=== PATIENT | male | born 1935 | race Caucasian/White ===

== ENCOUNTER 2017-09-11 09:21 | Observation (INO) | payer MEDICARE ==
[2017-09-11 09:48] LABS: Hematocrit 38 % (42-52); Hemoglobin 12.6 g/dl (14.0-18.0); Mean Corpuscular HGB Conc 33 g/dl (31-36); Mean Corpuscular Hemoglobin 30 pg (27-31); Mean Corpuscular Volume 90 fL (80-94); Mean Platelet Volume 7 um3 (7.4-10.4); Red Blood Count 4.23 10^6/ul (4.0-5.4); Red Cell Distribution Width 14 % (10.5-15); White Blood Count 8.7 10^3/ul (3.5-10.8)
[2017-09-11 10:06] LABS: Albumin 3.8 g/dL (3.2-5.2); Calcium 9.1 mg/dL (8.6-10.3); EGFR African American 74.4 (>60); EGFR Non-African American 57.8 (>60); Globulin 3.1 g/dL (2-4); HDL Cholesterol 41.5 mg/dL; Potassium 4.1 mmol/L (3.5-5.0); Total Bilirubin 0.5 mg/dL (0.2-1.0); Total Protein 6.9 g/dL (6.4-8.9)
[2017-09-11 10:08] LABS: Troponin I 0.01 ng/mL (<0.04)
--- NOTE | 2017-09-11 10:18 | RAD ---
INDICATION: Weakness. COMPARISON: There are no prior studies available for comparison. TECHNIQUE: Contiguous axial sections of the brain were obtained from the skull base to the vertex without contrast. FINDINGS: The ventricles, cisterns and sulci are enlarged consistent with diffuse atrophy. There are multiple focal areas of decreased density in the subcortical and periventricular white matter suggestive of moderate chronic small vessel ischemic changes. There appears be a small old lacunar infarct in the subcortical white matter in the left frontal lobe. No other focal abnormalities are seen. No mass effect is present. There is no evidence for hemorrhage. No significant focal osseous abnormality is seen. The visualized portion of the paranasal sinuses and mastoid air cells appear clear. IMPRESSION: 1. NO EVIDENCE FOR ACUTE INTRACRANIAL ABNORMALITY. 2. 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
--- NOTE | 2017-09-11 10:40 | RAD ---
INDICATION: Weakness. COMPARISON: Comparison is made with a prior chest x-ray study from May 31, 2017. TECHNIQUE: Dual-energy PA and lateral views of the chest were obtained. FINDINGS: The heart is within normal limits in size. Mediastinal and hilar contours appear within normal limits. The lungs are clear. No pleural effusion is present. IMPRESSION: NO EVIDENCE FOR ACTIVE CARDIOPULMONARY DISEASE.
[2017-09-11] MEDS ORDERED: Albuterol HFA INHALER* 8 gm MDI INH PRN (13:01)
[2017-09-11] MEDS ORDERED: Acetaminophen TAB* 325 MG PO PRN (13:02)
[2017-09-11] MEDS ORDERED: Ondansetron INJ* 2 MG/ML VIAL IV PRN (13:02)
[2017-09-11] MEDS ORDERED: Triamterene/HCTZ 37.5-25 MG* CAP PO ONE (13:21)
[2017-09-11] MEDS: Clopidogrel TAB* 75 MG PO SCH (14:44)
[2017-09-11] MEDS: Heparin VIAL(*) 5000 UNITS/ML VIAL (FIVE THOUSAND) SUBCUT SCH ×2 (14:44→21:07)
--- NOTE | 2017-09-11 17:30 | RAD ---
INDICATION: Right-sided numbness CVA versus metastatic disease. COMPARISON: Comparison is made with a prior CT of the brain from September 11, 2017. TECHNIQUE: Sagittal T1, axial T1, T2, susceptibility, FLAIR and diffusion weighted images were obtained. FINDINGS: The ventricles, cisterns and sulci are prominent consistent with diffuse atrophy. There are focal areas of increased signal intensity on T2-weighted images present in the subcortical and periventricular white matter most consistent with moderate chronic small vessel ischemic changes. There is a focal area of restricted diffusion present within the marti on the left side measuring 2.0 x 0.7 cm in size without evidence for hemorrhage. This would be most consistent with an acute to subacute infarct. No mass effect is present. The visualized portion of the paranasal sinuses and mastoid air cells appear clear. IMPRESSION: 1. FINDINGS CONSISTENT WITH AN ACUTE TO SUBACUTE NONHEMORRHAGIC INFARCT WITHIN THE MARTI ON THE LEFT SIDE. 2. FINDINGS CONSISTENT WITH MODERATE CHRONIC SMALL VESSEL ISCHEMIC CHANGES.
[2017-09-11] MEDS ORDERED: Valsartan TAB* 80 MG PO SCH (18:00)
[2017-09-11] MEDS ORDERED: Diltiazem CD CAP* 180 MG PO SCH (18:00)
--- NOTE | 2017-09-11 18:26 | ED ---
Trinh Garcia Alfonso, scribed for Joaquin Stone MD on 09/11/17 at 0947 . Neurological HPI - HPI Summary HPI Summary: This patient is an 82 year old M presenting to [facility] accompanied by with a chief complaint of right sided tingling and numbness since yesterday. The patient rates the pain 0/10 in severity. Symptoms aggravated and alleviated by nothing. Patient denies headache. - History of Current Complaint Chief Complaint: EDNeurologicalDeficit Stated Complaint: POSSIBLE STROKE Time Seen by Provider: 09/11/17 09:40 Hx Obtained From: Patient Onset/Duration: Sudden Onset, Started days ago - yesterday, Still Present Timing: Constant Pain Intensity: 0 Pain Scale Used: 0-10 Numeric Character: Other: - right sided tingling and numbness Aggravating: Nothing Alleviating: Nothing Associated Signs and Symptoms: Negative: Headache - Allergy/Home Medications Allergies/Adverse Reactions: Allergies Allergy/AdvReac Type Severity Reaction Status Date / Time Ezetimibe [From Zetia] Allergy Unknown Verified 09/11/17 09:32 Reaction Details Lisinopril Allergy See Comment Verified 09/11/17 09:32 statins Allergy See Comment Uncoded 01/31/17 12:59 Home Medications: Home Medications Pantoprazole TAB (NF) [Protonix TAB (NF)] 40 mg PO BID 09/11/17 [History Confirmed 09/11/17] PMH/Surg Hx/FS Hx/Imm Hx Endocrine/Hematology History: Denies: Hx Diabetes Cardiovascular History: Reports: Hx Hypertension Respiratory History: Reports: Hx Asthma, Other Respiratory Problems/Disorders - ESOPH CA History: Denies: Hx Renal Disease Opthamlomology History: Denies: Hx Legally Blind Neurological History: Reports: Hx Transient Ischemic Attacks (TIA) - 2000 - Cancer History Cancer Type, 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 - Surgical History Surgery Procedure, Year, and Place: BURGER'S ESOPHAGUS, HIATAL HERNIA, TONSIL/ ADENOIDS, CARARACT Infectious Disease History: Unable to Obtain/Confirm Infectious Disease History: Denies: Traveled Outside the [place] in Last 30 Days - Family History Known Family History: Positive: Cardiac Disease - Social History Alcohol Use: None Hx Substance Use: No Substance Use Type: Reports: None Hx Tobacco Use: No Smoking Status (MU): Never Smoked Tobacco Review of Systems Negative: Fever Neurological: Other - right sided tingling and numbness Negative: Headache All Other Systems Reviewed And Are Negative: Yes Physical Exam - Summary Physical Exam Summary: VITAL SIGNS: Reviewed. GENERAL: Patient is a well-developed and nourished male who is lying comfortable in the stretcher. Patient is not in any acute respiratory distress. HEAD AND FACE: No signs of trauma. No ecchymosis, hematomas or skull depressions. No sinus tenderness. EYES: PERRLA, EOMI x 2, No injected conjunctiva, no nystagmus. No photophobia. EARS: Hearing grossly intact. Ear canals and tympanic membranes are within normal limits. MOUTH: Oropharynx within normal limits. NECK: Supple, trachea is midline, no adenopathy, no JVD, no carotid bruit, no c- spine tenderness, neck with full ROM. No meningeal signs, no Kernig's or brudzinskis signs. CHEST: Symmetric, no tenderness at palpation LUNGS: Clear to auscultation bilaterally. No wheezing or crackles. CVS: Regular rate and rhythm, S1 and S2 present, no murmurs or gallops appreciated. ABDOMEN: Soft, non-tender. No signs of distention. No rebound no guarding, and no masses palpated. Bowel sounds are normal. EXTREMITIES: FROM in all major joints, no edema, no cyanosis or clubbing. NEURO: Alert and oriented x 3. Speech is normal and follows commands. Decreased sensations at right side face, RUE, and RLE. See NIH scale. SKIN: Dry and warm GCS: 15 Vital Signs On Initial Exam: Initial Vitals Temp Pulse Resp BP Pulse Ox 97.6 F 65 25 173/84 99 09/11/17 09:32 09/11/17 09:32 09/11/17 09:32 09/11/17 09:32 09/11/17 09:32 Diagnostics - Vital Signs Vital Signs Temp Pulse Resp BP Pulse Ox 09/11/17 09:32 97.6 F 63 20 173/84 100 - Laboratory Result Diagrams: 09/11/17 09:43 09/11/17 09:43 Lab Statement: Any lab studies that have been ordered have been reviewed, and results considered in the medical decision making process. - Radiology CXR Radiology Interpretation Completed By: Radiologist - NO EVIDENCE FOR ACTIVE CARDIOPULMONARY DISEASE. ED physician has reviewed this radiology report and agrees. - CT Brain CT Interpretation Completed By: Radiologist - 1. NO EVIDENCE FOR ACUTE INTRACRANIAL ABNORMALITY. 2. 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 ED physician has reviewed this radiology report and agrees. - EKG 0955 Cardiac Rate: Bradycardia EKG Rhythm: Sinus Bradycardia - 58 BPM EKG Interpretation: Normal axis and no ST elevation. NIH Scale - NIH Scale Level of Consciousness: Alert/Keenly Responsive Ask Patient the Month and His/Her Age: Both Correct Ask Pt to Open/Close Eyes and Senior Specialist/Release Non-Paretic Hand: Both Correctly Best Gaze (Only Horizontal Eye Movement): Normal Visual Field Testing: No Visual Loss Facial Paresis-Pt to Smile & Close Eyes or Grimace Symmetry: Normal/Symmetrical Motor Function - Right Arm: No Drift-Holds 10 Seconds Motor Function - Left Arm: No Drift-Holds 10 Seconds Motor Function - Right Leg: No Drift-Holds 10 Seconds Motor Function - Left Leg: No Drift-Holds 10 Seconds Limb Ataxia-Must be out of Proportion to Weakness Present: Absent Sensory (Use Pinprick to Test Arms/Legs/Trunk/Face): Pinprick Less on Affected Best Language (Describe Picture, Name Items): No Aphasia Dysarthria (Read Several Words): Normal Extinction and Inattention: No Abnormality Total Score: 1 Course/Dx - Course Assessment/Plan: This patient is an 82 year old M [facility] accompanied by with a chief complaint of right sided tingling and numbness since yesterday. The patient rates the pain 0/10 in severity. Symptoms aggravated and alleviated by nothing. Patient denies headache. Test results with no significant abnormalities except for slight anemia. An EKG reveals Sinus Bradycardia at 58 BPM. CXR reveals, per radiologist, NO EVIDENCE FOR ACTIVE CARDIOPULMONARY DISEASE. ED physician has reviewed this radiology report and agrees. CT Brain reveals, per radiologist, 1. NO EVIDENCE FOR ACUTE INTRACRANIAL ABNORMALITY. 2. 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 ED physician has reviewed this radiology report and agrees. The patient continues to be symptomatic with right sided numbness and decreased sensations. PMHx of TIA and carotid stenosis. Because of the comorbidities and his symptoms today, I consulted Dr. Watson ( hospitalist) at 1151 who agrees to admit. Patient will be admitted to [facility] with follow up from Dr. Watson. The patient is agreeable with this plan. The patient is hemodynamically stable, alert and oriented x3. - Diagnoses Provider Diagnoses: Focal neurological deficit, TIA vs CVA - Physician Notifications Discussed Care Of Patient With: Irene Watson Time Discussed With Above Provider: 11:51 Instructed by Provider To: Other - Consulted Dr. Watson (hospitalist) at 1151 who agrees to admit. Discharge - Discharge Plan Condition: Stable Disposition: ADMITTED TO [facility] Referrals: Chau Soto MD [Primary Care Provider] - The documentation as recorded by the Trinh saeed Alfonso accurately reflects the service I personally performed and the decisions made by Chase ponce Walter, MD.
[2017-09-11] MEDS ORDERED: Famotidine TAB* 20 MG PO SCH (21:00)
[2017-09-11] MEDS: Pantoprazole TAB (NF) 40 MG TAB PO SCH (21:06)
--- NOTE | 2017-09-11 21:08 | HP ---
CC: Dr. Chau Soto; Oncologist, Dr. Robles; Event Coordinator Marketing And Sales, Dr. Thomas ; Neurologist, Dr. Fu * HISTORY AND PHYSICAL: DATE OF ADMISSION: 09/11/17 TIME OF EVALUATION: 12:30 p.m. PRIMARY CARE PROVIDER: Dr. Chau Soto. ONCOLOGIST: Dr. Robles. HEAD SAWYER: Dr. Thomas. NEUROLOGIST: Dr. Fu. CHIEF COMPLAINT: "My right side is numb." HISTORY OF PRESENT ILLNESS: Mr. Coats is an 82-year-old male with a past medical history of hypertension; esophageal CA; hyperlipidemia; TIA; diverticulosis; asthma; GERD; right carotid stenosis; BPH; CAD; who presents to the emergency room with complaints of right-sided numbness. The patient states that yesterday around 8 a.m., he started to experience some right hand numbness. 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 As the day went by, the numbness progressed to his arm to his leg and right side of the face. He states that he had no weakness, no change in speech, no visual changes, no other neuro deficits. As the numbness persisted today, he decided to come to the emergency room for further evaluation. The patient had a TIA many years ago, and at that time, he was started on Plavix and he states that this was discontinued 5 years ago by his pump technician and he was continued on aspirin, but it is not very clear why this change was made. Regarding his esophageal CA, the patient has had chronic issues with difficulty swallowing and reflux. He was diagnosed with Lim's esophagus and last year he was diagnosed with esophageal adenocarcinoma. He was seen at [facility] and declined surgery or chemotherapy. The patient decided not to pursue any treatment and went to [place] to spend the winter. He returned and saw Dr. Thomas and Dr. Robles this year and was told that the disease has not progressed , so his plan is not to pursue treatment and he is still thinking if he is going to continue to be surveilled. He states that at this point he is able to eat well. Denies any significant dysphagia or weight loss. PAST MEDICAL HISTORY: 1. Esophageal adenocarcinoma as described above. 2. Lim's esophagus. 3. Hyperlipidemia. 4. TIA. 5. Diverticulosis. 6. Asthma. 7. GERD. 8. Right carotid artery stenosis (70% on carotid ultrasound in February 2016). 9. Hypertension. 10. BPH. 11. CAD. MEDICATION LIST: 1. Albuterol HFA 2 puffs inhaled 4 times a day p.r.n. shortness of breath. 2. Aspirin 81 mg p.o. q.p.m. 3. Cardizem XR 180 mg p.o. q.p.m. 4. Pantoprazole 40 mg p.o. b.i.d. 5. Ranitidine 150 mg p.o. at bedtime. 6. Valsartan 80 mg p.o. q.p.m. ALLERGIES: EZETIMIBE, the patient says that he is not allergic, but he does not like the medication. With LISINOPRIL, he had a sore throat, and with STATINS, he has muscle aches. FAMILY HISTORY: Sister had colorectal carcinoma. Mother's sister of an [place]. Brother also has a history of coronary artery disease. Mother of [place] at age 56. SOCIAL HISTORY: The patient is a retired middle school history teacher. No history of alcohol or drug abuse. He says that he smoked when he was a kid from age 7 to 12, 1 to 2 cigarettes a day, but he has quit since and never became what he calls "real smoker." Surrogate decision maker is his , Puja Pal, phone number is [phone]. REVIEW OF SYSTEMS: A 14-point review of systems was performed, and all the pertinent negative and positive findings are in the HPI. PHYSICAL EXAMINATION GENERAL: The patient is a pleasant, elderly male sitting up in the ED stretcher , in no acute distress. VITAL SIGNS: Temperature 97.6, heart rate is 76, respiratory rate is 17, oxygen saturation is 98% on room air, blood pressure is 150/78. HEENT: There is no audible carotid bruit on physical examination. CHEST: Breath sounds present bilaterally with no added sounds. CVS: Normal S1, S2. Regular rate and rhythm. ABDOMEN: Soft, nontender, and nondistended. Bowel sounds are present. EXTREMITIES: No edema. NEURO: The patient is alert and oriented x3, able to move all 4 extremities. Speech is normal. There are no localized weakness. The only finding is decreased sensation on the right side of his body. DIAGNOSTIC STUDIES/LAB DATA: The patient had a CBC that showed a WBC of 8.7, hemoglobin of 12.6, hematocrit of 38, platelets of 318 with 65% neutrophils. His INR is 1.08. Chemistry showed a sodium of 135, potassium of 4.1, chloride of 104, bicarb of 25, BUN of 18, creatinine of 1.2, glucose of 123, lactic acid of 2, calcium of 9.1. LFTs are normal. His lipid profile showed triglycerides of 122, cholesterol of 218, LDL of 152. CT of the brain without contrast showed no evidence for acute intracranial abnormality, only an old lacunar infarct and findings consistent with moderate chronic small vessel ischemic changes. Chest x-ray, no evidence for active cardiopulmonary disease. EKG showed sinus bradycardia at 58 beats per minute with flat Ts in V6. ASSESSMENT AND PLAN: Mr. Coats is an 82-year-old male with a past medical history of esophageal CA; hyperlipidemia; hypertension; TIA, carotid stenosis; BPH and CAD that presents to the emergency room with complaints of right-sided numbness lasting more than 24 hours. 1. Cerebrovascular accident. Suspect the patient's symptoms could represent a left-sided thalamic CVA, but with his history of untreated esophageal adenocarcinoma, we also have to think about possible metastatic disease. He will be admitted to the telemetry floor. We are going to monitor him with neurological checks and he will have an MRI of the brain with and without contrast. We will also pursue an echocardiogram with bubble study. The patient 's last carotid ultrasound done in February 2016 showed greater than 70% stenosis within the right ICA and less than 50% stenosis within the left ICA. The patient was seen by Dr. Vidal, but he declined surgery at that point. He states that even if the disease had progressed, he would not be not be interested in surgery, so at this point, we are not going to pursue further carotid imaging. A neurological consult was requested with Dr. Fu. We are going to change his aspirin to Plavix. The patient's LDL is elevated at 152 , but he states that he cannot tolerate statins and he is now willing to try it again at this time. 2. Hypertension. We will continue his diltiazem and valsartan with holding parameters. 3. DVT prophylaxis. The patient has a score of 5 on the DVT Prophylaxis Risk Assessment Guide. He will be started on subcutaneous heparin. 4. Code status is full. TIME SPENT: Approximately 55 minutes was spent with the patient and interview, medical records review, physical examination to complete this admission; more than half of this time was spent [id number] with the patient and coordination of care. [id number]/CPS #: [id number] MTDD
[2017-09-12 01:56] LABS: Urine Bilirubin Negative (Negative); Urine Glucose Negative (Negative); Urine Nitrite Negative (Negative)
[2017-09-12] MEDS: Heparin VIAL(*) 5000 UNITS/ML VIAL (FIVE THOUSAND) SUBCUT SCH ×2 (05:45→14:28)
[2017-09-12] MEDS: Clopidogrel TAB* 75 MG PO SCH (10:21)
[2017-09-12] MEDS: Pantoprazole TAB (NF) 40 MG TAB PO SCH (10:21)
[2017-09-12] MEDS ORDERED: Iodixanol* (CONTRAST) 320 MG/ML 100 ML SDV IV ONE (13:12)
--- NOTE | 2017-09-12 14:23 | PN ---
Subjective Date of Service: 09/12/17 Interval History: HOSPITALIST PROGRESS NOTE Patient seen and examined at bedside. He offers no new complaints today, but as per RN had an episode of dysarthria earlier today. Family History: Unchanged from Admission Social History: Unchanged from Admission Past Medical History: Unchanged from Admission Objective Active Medications: Acetaminophen (Tylenol Tab*) 650 mg PO Q6H PRN PRN Reason: pain/fever Albuterol (Ventolin Hfa Inhaler*) 2 puff INH QID PRN PRN Reason: SOB/WHEEZING Clopidogrel Bisulfate (Plavix Tab*) 75 mg PO DAILY [facility] Last Admin: 09/12/17 10:21 Dose: 75 mg Diltiazem HCl (Cardizem Cd Cap*) 180 mg PO QPM BECCA PRN Reason: Protocol Last Admin: 09/11/17 17:47 Dose: 180 mg Famotidine (Pepcid Tab*) 20 mg PO BEDTIME BECCA PRN Reason: Protocol Last Admin: 09/11/17 21:07 Dose: 20 mg Heparin Sodium (Porcine) (Heparin Vial(*)) 5,000 units SUBCUT Q8HR [facility] Last Admin: 09/12/17 05:45 Dose: 5,000 units Ondansetron HCl (Zofran Inj*) 4 mg IV Q6H PRN PRN Reason: NAUSEA Pantoprazole Sodium (Protonix Tab (Nf)) 40 mg PO BID [facility] Last Admin: 09/12/17 10:21 Dose: 40 mg Valsartan (Diovan Tab*) 80 mg PO QPM [facility] Last Admin: 09/11/17 17:47 Dose: 80 mg Vital Signs 09/12/17 09/12/17 09/12/17 03:55 07:25 11:48 Temperature 97.6 F 97.7 F 98.1 F Pulse Rate 56 64 62 Respiratory 20 16 16 Rate Blood Pressure 168/72 155/72 139/73 (mmHg) O2 Sat by Pulse 100 96 91 Oximetry Oxygen Devices in Use Now: None Appearance: Elderly gentleman sitting up in bed in NAD. Eyes: No Scleral Icterus Ears/Nose/Mouth/Throat: Mucous Membranes Moist Neck: Trachea Midline Respiratory: Symmetrical Chest Expansion and Respiratory Effort, Clear to Auscultation Cardiovascular: RRR - Normal S1 and S2 Abdominal: NL Sounds; No Tenderness; No Distention Neurological: Alert and Oriented x 3, - - Right sided numbness, speech is clear Lines/Tubes/Other Access: Clean, Dry and Intact Peripheral IV Nutrition: Taking PO's Result Diagrams: 09/11/17 09:43 09/11/17 09:43 Assess/Plan/Problems-Billing Assessment: Mr. Coats is an 82yo M with PMH of esophageal CA, Lim's esophagus, HLD, TIA, GERD, HTN, BPH, right carotid stenosis >70%, CAD, who presented to ED with c/o right sided numbness, found to have left rico CVA. - Patient Problems (1) Left pontine CVA Comment: - Continue Plavix. - LDL is 150 but patient states he cannot tolerated statins. - Awaiting echocardiogram. - Episode of dysarthria d/w Neurology - initially we were not going to pursue CTA head/neck as the patient is not interested in having carotid surgery, but now we will pursue to check his posterior circulation. - Continue neuro checks. - PT/OT eval. (2) HTN (hypertension) Comment: - Controlled. - Continue Diltiazem and Valsartan. (3) DVT prophylaxis Comment: - SQ heparin. (4) Full code status Status and Disposition: Change to inpatient to complete his w/u.
--- NOTE | 2017-09-12 16:10 | ECHO ---
Patient: REJI FAN [facility] Rec#: [id number] : 1935 Date: 09/12/2017 Age: 82y Height: 167.64 cm / 66.0 in Weight: 74.84 kg / 164.9 lbs Sex: M BSA: 1.84 Room#: [facility] Admit Date#: 09/11/2017 Type: Inpatient Referring: Irene Walker MD Reading: Everton Gonzalez MD Fire Crew Specialist: Dora Cruz RDCS CC: Chau Soto MD Transthoracic Echocardiogram Indication: CVA BP: 168/72 HR: 57 Rhythm: Bradycardia Findings History: HTN, HLD, TIA, GERD, esophageal cancer, CAD, and right carotid stenosis. Technical Comments: The study quality is fair. The study is technically limited due to patient body habitus. Completed at 1220. Left Ventricle: The left ventricular chamber size is normal. Mild concentric left ventricular hypertrophy is observed. Global left ventricular wall motion and contractility are within normal limits. There is normal left ventricular systolic function. The estimated ejection fraction is 55-60%. Abnormal left ventricular diastolic function is observed. Abnormal left ventricular diastolic filling is observed, consistent with impaired relaxation. Left Atrium: The left atrium is mildly dilated. Right Ventricle: The right ventricular cavity size is normal. The right ventricular global systolic function is normal. Right Atrium: The right atrium is mildly dilated. Interatrial septum appears intact without evidence of shunting. The bubble study is negative. A patent foramen ovale is not demonstrated with color Doppler and agitated contrast. Aortic Valve: The aortic valve is trileaflet. The aortic valve leaflets are mildly thickened. There is no evidence of aortic regurgitation. There is no evidence of aortic stenosis. Mitral Valve: There is mitral annular calcification. The mitral valve leaflets are mildly thickened. There is trace to mild mitral regurgitation. There is no evidence of mitral stenosis. Tricuspid Valve: The tricuspid valve leaflets are normal. There is mild tricuspid regurgitation. The right ventricular systolic pressure is estimated at 26 mmHg. No pulmonary hypertension is noted. There is no tricuspid stenosis. Pulmonic Valve: The pulmonic valve appears normal. There is a trace pulmonic regurgitation. Pericardium: There is no significant pericardial effusion. Aorta: There is moderate dilatation of the ascending aorta.4.2 cm There is no dilatation of the aortic arch. The aortic root is normal in size. Pulmonary Artery: The main pulmonary artery is not well visualized. Venous: The inferior vena cava appears normal in size. There is a greater than 50% respiratory change in the inferior vena cava dimension. Contrast: Normal saline was used as contrast for the bubble study. Images 86 and 87. Intravenous contrast was used to help determine presence of intracardiac shunting. Summary: There was not any prior study for comparison. Conclusions Global left ventricular wall motion and contractility are within normal limits. There is normal left ventricular systolic function. The estimated ejection fraction is 55-60%. The right ventricular global systolic function is normal. A patent foramen ovale is not demonstrated with color Doppler and agitated contrast. There is no evidence of aortic stenosis. There is trace to mild mitral regurgitation. There is mild tricuspid regurgitation. There is moderate dilatation of the ascending aorta.4.2 cm Measurements Name Value Normal Range RVIDd (AP) 2D 2.7 cm (0.9 - 2.6) RVDdMajor (2D) 4.3 cm (2.2 - 4.4) RAd ISD 4CH 5.4 cm (3.4 - 4.9) RA (A4C)W 3.8 cm (2.9 - 4.6) IVSd (2D) 1.2 cm (0.6 - 1) LVPWd (2D) 1.2 cm (0.6 - 1) LVIDd (2D) 3.9 cm (3.6 - 5.4) LVIDs (2D) 2.3 cm - LV FS (2D) 40 % (25 - 45) Aortic Annulus 1.9 cm (1.4 - 2.6) Ao root diameter (2D) 3.5 cm (2.1 - 3.5) Ascending Ao 4.2 cm (2.1 - 3.4) Aortic arch 3.2 cm (1.8 - 3.4) LA dimension (AP) 2D 3.6 cm (2.3 - 3.8) LAd ISD 4CH 5.4 cm (2.9 - 5.3) LA ISD 4CH W 3.7 cm (2.5 - 4.5) Name Value Normal Range LA ESV SP 4CH (A/L) 35 ml - LA ESV SP 2CH (A/L) 75 ml - LA ESV BP (A/L) 52 ml - LA ESV BP (A/L) index 28 ml/m2 - LA ESV SP 4CH (MOD) 32 ml - LA ESV SP 2CH (MOD) 72 ml - Name Value Normal Range MV E-wave Vmax 0.65 m/sec - MV deceleration time 343.3 msec - MV A-wave Vmax 0.88 m/sec - MV E:A ratio 0.74 ratio - LV septal e' Vmax 0.06 m/sec - LV lateral e' Vmax 0.08 m/sec - LV E:e' septal ratio 10.83 ratio - LV E:e' lateral ratio 8.13 ratio - Name Value Normal Range AV Vmax 1.5 m/sec - AV VTI 30.71 cm - AV peak gradient 9.1 mmHg - AV mean gradient 4.63 mmHg - LVOT Vmax 1.11 m/sec - LVOT VTI 27.19 cm - LVOT peak gradient 4.98 mmHg - LVOT mean gradient 2.46 mmHg - PEDRO PABLO Vmax 0.57 m/sec - Name Value Normal Range TR Vmax 2.4 m/sec - TR peak gradient 23 mmHg - RAP 3 mmHg - RVSP 26 mmHg - IVC diameter 1.5 cm - Name Value Normal Range PV Vmax 1 m/sec - PV peak gradient 4.27 mmHg -
[2017-09-12 16:20] VITALS: BP 158/72
--- NOTE | 2017-09-12 16:27 | RAD ---
Indication: Pontine stroke. Contrast: Administered 80.3 ml of VISIPAQUE 320 mg/ml. CTA of the neck and head was performed after IV contrast administration. Coronal and sagittal reconstructed images were obtained. The origins of the great vessels are unremarkable. Atherosclerosis is noted. Atherosclerosis and intimal wall thickening of the aortic arch, left subclavian artery, innominate artery and left common carotid artery is noted. Calcific plaque is noted in the left common carotid artery. The carotid artery bifurcations demonstrate intimal wall thickening with plaque, especially in the right origin of the internal carotid artery. No evidence of carotid artery dissection is noted. The great vessels demonstrate atherosclerosis of the left vertebral artery. Basilar artery, anterior and middle cerebral arteries are unremarkable. IMPRESSION: 1. Atherosclerosis of the aortic arch and great vessels of the aorta. Atherosclerosis of the right carotid bulb is noted with calcific plaque. 2. No evidence of carotid artery dissection is noted. 3. CTA of the head demonstrates no evidence of branch occlusion or aneurysmal dilatation of the intracranial vessels.
--- NOTE | 2017-09-12 22:19 | CONS ---
CONSULTATION REPORT: DATE OF CONSULT: 09/11/17 PATIENT OF: Dr. Saravia; Dr. Soto; Dr. Robles; Dr. Thomas. HISTORY OF PRESENT ILLNESS: Mr. Coats is an 82-year-old man, who presents with right-sided numbness starting the morning before admission with right hand numbness, which then progressed over the course of the day to his arm and his leg and right side of his face. There was no weakness. No change in speech. No headache. No visual symptoms. No trouble walking. Because his numbness persisted, he came to the emergency room for evaluation. He had the TIA many years ago and was on Plavix and this was stopped 5 years ago by his speech therapy teacher and switched to aspirin. Of note, he has esophageal CA and chronic difficulty swallowing and reflux and was seen up at [place] and he declined both surgery and chemotherapy apparently. PAST MEDICAL HISTORY: His medical problems include hyperlipidemia, hypertension , esophageal cancer, diverticulosis, asthma, GERD, right carotid stenosis, asthma, GERD, right carotid stenosis is 70% on carotid ultrasound in February of 2016 , hypertension, BPH, coronary artery disease. MEDICATIONS: His medicines on admission include: 1. Valsartan 80 mg q.p.m. 2. Ranitidine 150 mg at bedtime. 3. Pantoprazole 40 mg b.i.d. 4. Cardizem XR 180 q.p.m. 5. Aspirin 81 mg q.p.m. 6. Albuterol 2 puffs 4 times a day p.r.n. shortness of breath. ALLERGIES: He is allergic to EZETIMIBE; STATINS, he has muscle aches. FAMILY HISTORY: His sister had colorectal carcinoma. His mother's sister of an [place]. There is a brother with coronary artery disease and mother of an [place] at age 56. He is a retired instructor correspondence school. No drug or alcohol abuse. He smoked when he was a kid from 7 to 12, two cigarettes a day. REVIEW OF SYSTEMS: Negative in all 14 spheres other than HPI. PHYSICAL EXAM: Temperature 97.7, pulse 64, respirations 16, blood pressure 155/ 72. He is alert and oriented with normal speech and comprehension. Cranial nerves II through XII were intact. Fundi were benign including sharp discs. Motor exam revealed normal tone, strength, [id number]. Sensation was decreased to soft touch, in face, arm and leg. Reflexes were 1 and equal, downgoing toes. Chest: Clear. Cardiovascular: Regular rate and rhythm. Abdomen: Soft with positive bowel sounds. DIAGNOSTIC STUDIES/LAB DATA: His CT scan did not show any acute findings. He did have some appearance of small vessel disease on the CT scan. We obtained an MRI scan yesterday with the concern being that this may either be a stuttering stroke or possibly related to tumor. He had findings on MRI scan consistent with an acute to subacute left pontine bland stroke and some moderate small vessel ischemic disease. Labs included normal CBC other than hematocrit of 38. Normal INR and PTT. Normal CMP other than creatinine of 1.2, glucose of 122, LDL was 152. UA was negative. IMPRESSION AND PLAN: I had discussed this with Mr. Coats that hemisensory deficit is often related to a small stroke affecting sensory fibers. This is what his MRI scan documents rather than a tumor. This has occurred on aspirin, we are switching him back to Plavix. I discussed at length the pros and cons of obtaining a CTA prior to when the MRI scan was done to see if there was any symptomatic vascular disease. He declined this since he was not going to have any surgery at this point, given his underlying malignancy and his shorter life expectancy. I will be speaking to him about the pros and cons of treating his cholesterol more aggressively because this may be a contributing factor to his central nervous system vasculopathy. The statins may not only prove his vascular health oysterman, but could considerably lessen stroke if it should occur in the near future, but he has side effects from this and he has limited life expectancy, so I will speak to him and make recommendations. Ultimately, the choice would be his. Otherwise, dietary therapy would be recommended. Thank you for sharing his case. [id number]/[facility] #: [id number] AILYN
--- NOTE | 2017-09-13 08:25 | DS ---
CC: Dr. Chau Soto; Dr. Robles; Dr. Fu DISCHARGE SUMMARY: DATE OF ADMISSION: 09/11/17 DATE OF DISCHARGE: 09/12/17 PRIMARY CARE PROVIDER: Dr. Chau Soto ONCOLOGIST: Dr. Robles CONSULTING NEUROLOGIST: Dr. Fu DISCHARGE DIAGNOSIS: Left pontine CVA. SECONDARY DIAGNOSES: 1. Esophageal adenocarcinoma. 2. Lim's esophagus. 3. Hyperlipidemia. 4. TIA. 5. Diverticulosis. 6. Asthma. 7. Gastroesophageal reflux disease. 8. Right carotid artery stenosis. 9. Hypertension. 10. Benign prostatic hypertrophy. 11. Coronary artery disease. MEDICATION LIST: 1. Albuterol HFA two puffs inhaled 4 times a day p.r.n. shortness of breath. 2. Cardizem XR 180 mg p.o. q.p.m. 3. Pantoprazole 40 mg p.o. b.i.d. 4. Ranitidine 150 mg p.o. at bedtime. 5. Valsartan 80 mg p.o. q.p.m. Aspirin was discontinued, and the patient was started on Plavix 75 mg p.o. daily. HISTORY OF PRESENT ILLNESS: Mr. Coats is an 82-year-old male with a past medical history as stated above who presented to the emergency room on September 11 with complaints of almost 48 hours of rig ht-sided numbness. For more details about his presentation, I refer you to his history and physical. His workup included a transthoracic echocardiogram that showed an ejection fraction of 55-60% with no PFO. MRI of the brain with and without contrast that showed findings consistent with an acute-to-colon bacute non-hemorrhagic infarct within the rico on the left side, and other findings consistent with m oderate chronic small- vessel ischemic changes. The patient had an episode of word-finding difficulty this morning. Initially, the plan was not to d o a CTA of the head and neck as the patient has known right carotid stenosis greater than 70%, and he is very clear that he would not have surgery to correct it; but, since he has a posterior circulatio n CVA, decision was made to pursue CTA head and neck to look for stenosis in other vessels. This hudson dy showed atherosclerosis of the aortic arch and great vessels of the aorta, atherosclerosis of the r ight carotid bulb with calcific plaque, no evidence of carotic artery dissection. And the CTA of the head demonstrates no evidence of branch occlusion or aneurysm dilatation of the intracranial vessels . The patient was seen in consultation by Neurology (Dr. Fu), and his recommendation was to change the patient's aspirin to Plavix. The patient had a lipid profile that showed an LDL of 152. Unfort unately, the patient is INTOLERANT TO STATINS. He states that he had severe muscle aches with atorva statin, simvastatin, rosuvastatin, and he is not willing to try lovastatin at this time. The patient had resolution of the word-finding difficulty, but his right-sided numbness is unchanged. The case was discussed with Neurology, and the patient is medically stable to be discharged home to [place] to follow up with Dr. Soto as an outpatient. The patient and his received education about str hina and what symptoms should prompt their return to the emergency department. PHYSICAL EXAMINATION: Vital Signs: Temperature 97.6, heart rate 65, respiratory rate 16, oxygen sat urations 100% on room air, blood pressure 158/72. General: The patient is a pleasant elderly male, sitting up in the chair, in no acute distress. CVS: Normal S1, S2. Regular rate and rhythm. Chest: Breath sounds present bilaterally with no added sounds. Extremities: No edema. Neuro: He is bria rt and oriented x3. Face is symmetric. Speech is clear. He only has sensory deficits on the right. DIET: Heart-healthy diet. ACTIVITY: As tolerated. DISPOSITION: To home. STATUS WHILE IN THE HOSPITAL: Observation. Please keep in mind that this is a summarized version of this patient's hospital stay. If you need m ore information, please feel free to call me at [phone] or please obtain the full medical record s. TIME SPENT: Approximately 45 minutes were spent to complete the discharge. [id number]/[facility] #: [id number]
--- NOTE | 2017-09-13 09:26 | PN ---
PROGRESS NOTE: DATE OF SERVICE / DICTATION: 09/12/17 PATIENT OF: Dr. Saravia. HISTORY: This is an 82-year-old man I am seeing in followup for his right hemisensory symptoms, which are gone at this point, but he, this morning, had difficulty with word finding and some slurred speech. This resolved within minutes. MEDICATIONS: His medicines include: 1. Albuterol. 2. Plavix. 3. Diltiazem. 4. Pepcid. 5. Diovan. 6. Protonix. PHYSICAL EXAMINATION: Temperature 97.6, pulse 65, respirations 16, blood pressure 158/72. He is alert and oriented with normal speech and comprehension. Cranial nerves II through XII were normal. Motor exam revealed normal tone, strength, coordination, and gait. DIAGNOSTIC STUDIES: His MRI showed a small acute left pontine stroke, with some moderate small vessel ischemic changes seen diffusely to my eye. He had CTA that showed some atherosclerosis of his great vessels and right carotid bulb , but no basal artery dissection or major vascular stenosis. We did the CTA after he had his second vascular event this morning. His LDL was elevated. He had difficulty with statins in the past and he does not want to be on statins even though he knows that patients who are on statins who have stroke, may have less stroke burden. He, on the face of his significant cancer, does not want this treatment and has declined it. PLAN: He is going to continue on his Plavix and Dr. Saravia will be sending him home in the near future. [id number]/[facility] #: [id number]
== END 2017-09-12 18:11 | disposition home or self-care (01) ==
LOC: ED 09:21 → MEDTELE 12:55 → OBSVTOIN 09-12 14:36 → INTOOBSV 09-12 14:36
PROVIDERS: ADMIT Internal Medicine; ATTEND Internal Medicine
DX: I63.8 Other cerebral infarction (principal); C15.9 Malignant neoplasm of esophagus, unspecified; E78.5 Hyperlipidemia, unspecified; K22.70 Barrett's esophagus without dysplasia; Z86.73 Personal history of transient ischemic attack (TIA), and cerebral infarction without residual deficits; K57.90 Diverticulosis of intestine, part unspecified, without perforation or abscess without bleeding; J45.909 Unspecified asthma, uncomplicated; K21.9 Gastro-esophageal reflux disease without esophagitis; I65.21 Occlusion and stenosis of right carotid artery; I10 Essential (primary) hypertension; N40.0 Benign prostatic hyperplasia without lower urinary tract symptoms; I25.10 Atherosclerotic heart disease of native coronary artery without angina pectoris; Z79.899 Other long term (current) drug therapy; I67.2 Cerebral atherosclerosis; Z79.82 Long term (current) use of aspirin; R00.1 Bradycardia, unspecified
CPT/HCPCS: 36415; 70450; 70496; 70498; 70551; 71020; 80053; 80061; 81003; 83605; 84484; 85025; 85610; 85730; 93005; 93306; 96372; 99284; A9270-GY; G0378; G8978-GP-CH; G8979-GP-CH; G8980-GP-CH; G8987-GO-CI; G8988-GO-CI; G8989-GO-CI; G8996-GN-CH; G8997-GN-CH; G8998-GN-CH; G8999-GN-CI; G9186-GN-CH; J1644; Q9967

== ENCOUNTER 2018-04-20 14:02 | Emergency (ER) | payer MEDICARE ==
--- OUTSIDE RECORDS SUMMARY | 2018-04-20 14:30 | XMS REPORT ---
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 Active Onset: 04/17/2013 Anemia Chau Soto M.D.,FAC Active Onset: 04/17/2013 Impaired fasting glycaemia Chau Soto M.D.,FACP Active Onset: 06/19/2015 Allergic asthma Chau Soto M.D.,FAC Active Onset: 03/30/2018 Ischemic stroke Chau Soot M.D.,[facility] Active Note: RT arm numb/weakness Onset: 08/29/2013 Abnormal results of cardiovascular Rosaline Barraza D.O. Inactive function studies Inactive: 06/19/2015 Onset: 02/15/2013 Malaise and fatigue Cesar Christianson M.D. Resolved Resolved: 04/17/2013 Family History Date Family Member(s) Problem(s) Comments General Diabetes General Heart Disease General Cancer : (age 84 Father due to Unknown Years) Causes Mother due to Heart Disease () Mother due to Diabetes () First Daughter Gastroesophageal Reflux Disease (GERD) Siblings 4 First Brother due to OK () Second Brother Peripheral Vascular Disease (PVD) First Sister due to Cancer () - gastric First Sister Diabetes, Non Insulin Dependent First Sister due to Heart Disease () Second Sister Cancer, Colon Social History Type Date Description Comments Marital Status Lives With Occupation Retired Cigarette Use Never Smoked Cigarettes ETOH Use 06/24/2016 Occasionally consumes alcohol Recreational Drug Use Denies Drug Use Smoking Patient is a former smoker quit age 12. (years unknown) Daily Caffeine Consumes on average 2 cups of regular coffee per day Daily Caffeine Consumes on average 1 cup of hot tea per day Exercise Type/Frequency Exercises regularly bicycle 3Xweek General Hx Text 5 kids Bikes 3x/week Allergies, Adverse Reactions, Alerts Date Description Reaction Status Severity Comments 03/01/2004 Lipitor active felt washed out,myalgias 10/13/2004 Zocor active myalgias 09/02/2008 Crestor active myalgias 08/23/2013 Zetia fatigue active 02/05/2014 Livalo myalgias active 04/25/2014 Lisinopril causes sore throat active Mild 03/25/2015 Some Perfume Odor active wheezing, sob 12/02/2017 Cat Dander active Medications Medication Date Status Form Strength Qnty SIG Indications Ordering Provider Medrol 04/10/ Hx Tablets 4mg 1pak medrol Chau 2018 - dosepack as Steve Soto, 04/16/ directed Silas,FACP 2018 Anoro Ellipta 04/10/ Active Aerosol 62.5-25mc 60uni 1 inhalation J45.31 Chau 2017 g/Inh ts daily Steve Soto M.D.,FACP Plavix 09/12/ Active Tablets 75mg 90tab 1 by mouth Chau 2017 s every day Steve Soto M.D.,FACP Pantoprazole 01/26/ Active Tablets 40mg 180ta 1 by mouth Chau Sodium 2017 bs twice a day Steve Soto M.D.,FACP Chlorthalidone 08/25/ Active Tablets 25mg 90tab 1 tab by Leigha Del Rosario 2016 s mouth every , day N.P. Valsartan 07/22/ Active Tablets 80mg 180ta 2 by mouth Cesar alejandra twice a day Jah Christianson M.D. Cartia XT 02/18/ Active Caps ER 180mg 90cap take 1 Chau 2014 24HR s capsule Steve Soto, daily in the M.D.,FACP evening Ventolin HFA 04/17/ Active Aerosol 108(90Bas 24gm 2 puffs by J45.20 Chau 2012 e) mouth four Steve Soto, mcg/Act times a day M.D.,FACP as needed Ranitidine HCL / Active Capsules 150mg 90cap 1 tablet Chau 0000 s daily at Steve Soto, bedtime M.D.,FACP Guaifenesin-Code / Active Solution 100-10mg/ Take 5 Unknown ine 0000 5ML Milliliters By Mouth Every 6 Hours as Needed, Maximum Daily Dos Acetaminophen / Active Tablets 325mg 2 tablets by Unknown 0000 mouth daily prn Arnuity Ellipta 03/02/ Hx Aerosol 100mcg/Ac 30uni 1 puff J45.31 Carmen Hernandez 2018 - t ts inhaled Steve Soto, 04/10/ every day M.D.,FACP 2018 Asmanex 02/28/ Hx Aerosol 110mcg/In 1unit 1 inhalation J45.31 Chau Twisthaler 30 2018 - h s in evening Steve Soto, Metered Doses 03/02/ M.D.,FACP 2018 Inspra 12/29/ Hx Tablets 25mg 30tab Take 1/2 tab I10 Leigha Carin 2018 - s by mouth Foster, 02/08/ daily N.P. 2018 Amoxicillin/Clav 05/27/ Hx Tablets 875-125mg 14tab by mouth J45.31 Maurice Stevens ulanate 2017 - s twice a day Steve Soto, Potassium 06/03/ M.D.,FACP 2017 Asmanex 05/27/ Hx Aerosol 220mcg/In 1unit 1 inhalation J45.31 Chau Twisthaler 14 2017 - h s every day Steve Soto, Metered Doses 06/30/ for 2 wks M.D.,FACP 2016 Esomeprazole 01/20/ Hx Capsules 40mg 60cap 1 by mouth Chau Miranda 2017 - DR kruse twice a day Steve Soto, 01/26/ M.D.,FACP 2016 Inspra 08/12/ Hx Tablets 25mg 30tab 1/2 by mouth I10 Cesar 2015 Mckayla s every day F. 08/25/ (on hold yue, 201508/24/16) M.D. Spironolactone 07/08/ Hx Tablets 25mg 15tab 1/2 by mouth Herman Guerrero 2015 - s every day F. 08/02 pt Sammy 2015 holding at M.D. present time Amlodipine 06/29/ Hx Tablets 5mg 3tabs 1 by mouth Cesar Besylate 2015 - day before . 08/12/ and day of Sammy 2015 stress test M.D. (instead of cartia) Omeprazole 06/24/ Hx Capsules 40mg 180ca 1 by mouth Wale dinero every day Pachikara 01/20/ , M.D. 2017 Valsartan 05/16/ Hx Tablets 80mg 180ta take 3 tabs [id number] Guerrero 2013 - bs by mouth F. 06/24/ daily Sammy, 2015 (increased M.D. 06/15/16) Diovan 04/25/ Hx Tablets 80mg 30tab 1 by mouth Cesar 2013 - s every day F. 08/08/ Sammy 2013 M.D. Diovan 04/17/ Hx Tablets 80mg 100ta 1 by mouth 401.1 Cesar 2013 - bs every day . 04/25/ [email or web address] Silas Lisinopril 04/04/ Hx Tablets 20mg 30tab 1 by mouth 401.1 Cesar 2013 - s once a day F. 04/04/ [email or web address] Silas Lisinopril 04/04/ Hx Tablets 10mg 60tab take 1 401.1 Cesar 2013 - s tablet twice . 04/17/ a day [email or web address] Silas Livalo 08/09/ Hx Tablets 1mg 90tab po qpm 272.0 Chau 2012 Mckayla s Steve Soto, 02/05/ Silas,FACP 2013 Welchol 04/17/ Hx Tablets 625mg 180ta 3 po bid 414.01 Chau 2013 Mckayla Soto, 06/29/ Silas,FACP 2012 Amlodipine 02/15/ Hx Tablets 5mg 4tabs 1 po qd day Cesar Besylate 2012 - before and day of 2012 stress test. M.D. Diltiazem HCL ER 02/07/ Hx Caps ER 180mg 90cap 1 PO qd Chau Coated Beads 2012 - 24HR aixa Soto, 02/18/ Slias,FACP 2014 Afrin Nasal 09/26/ Hx Solution 0.05% 15ml 2-3 sprays 472.0 Juana Moosic 2011 - in each Frankie, 02/07/ nostril N.P. 2012 q10-12h prn; max 3 days Astepro 09/26/ Hx Solution 0.15% 30ml 1-2 472.0 Juana 2011 - sprays/nostr Frankie, 02/07/ il bid N.P. 2012 Amlodipine 03/03/ Hx Tablets 2.5mg 8tabs 2 po qd the Cesar Besylate 2011 - day before F. 02/07/ and the day 2012 of the test M.D. Amlodipine 02/09/ Hx Tablets 2.5mg 2tabs 1 po qdn day Cesar Besylate 2011 - before and day of 2011 stress. M.D. Aspirin 07/22/ Hx Tablets 81mg 100ta 1 po qd Chau 2010 - bs Steve Soto, 09/14/ Silas,FACP 2017 Cialis 07/22/ Hx Tablets 10mg 10tab qd prn Chau 2010 - s Steve Soto, 05/18/ MShaka,FACP 2011 Albuterol 05/19/ Hx Aerosol 90mcg/Act QS 2 puffs po 414.01 Chau 2010 - qid prn Steve Soto, 04/17/ MShaka,FACP 2013 Niaspan 07/16/ Hx Tablets 500mg 90tab 1 by mouth Cesar 2009 - ER s every night F. 06/24/ at bedtime Sammy, 2015 M.D. Niaspan 05/11/ Hx Tablets 500mg 180ta 2 tab qpm Cesar 2009 - ER bs F. 07/16/ Sammy 2009 M.D. Amlodipine 03/25/ Hx Tablets 5mg 3tabs 1 po qd day Cesar Alvarez 2009 - before and . 07/16/ day of Sammy 2009 stress test M.D. Crestor 05/23/ Hx Tablets 5mg 30tab 1 po qd on Cesar 2007 - tuesday and . 09/02/ Sammy 2007 MJosé. Medrol Dosepak 04/23/ Hx Tablets 4mg 1Pack take as 692.6 Chau 2007 - directed Steve Soto, 05/23/ Silas,FACP 2007 Zetia 02/25/ Hx Tablets 10mg 90tab 1 po qd Cesar 2007 - s F. 02/07/ Sammy 2012 M.D. Omeprazole 02/04/ Hx Capsules 20mg 30cap 1 qpm Pt Chau 2007 - DR kruse states he is Steve Soto, 06/24/ taking 40 MG M.DChristelle,FACP 2016 Aspir-81 02/04/ Hx Tablets 81mg 1 PO qd Chau 2008 - DR Steve Soto, 07/22/ Silas,FACP 2010 Protonix 08/29/ Hx Tablets 20mg 30tab 1 PO qd Cesar 2006 - DR kruse F. 02/04/ Sammy, 2007 M.D. Multi-Day 09/29/ Hx Tablets 1 PO qd Cesar Vitamins 2005 - F. user, 2006 M.Steve Vitamin B12 09/29/ Hx Capsules 1000mg 1 tablet po Cesar 2005 - qd F. user, 2006 M.DChristelle Iron 09/29/ Hx Tablets 65mg 1 PO qd Cesar 2005 - F. user, 2006 M.Steve Tricor 06/28/ Hx Tablets 145mg 90tab 1 po qd Cesar 2005 - s F. user, 2007 M.D. Questran 05/19/ Hx Powder 4GM/9 GM 180un 1 bid Cesar 2005 - its F. user, 2005 M.Munir. Niaspan 05/18/ Hx Tablets 500mg 90tab 1 tablet by Cesar 2005 - ER s mouth qd F. user, 2009 M.D. Niaspan Extended 03/04/ Hx Tablets 500mg 180ta 1 po bid Cesar Release 2004 - bs F. user, 2005 M.Steve Aspirin Enteric 03/04/ Hx Tablets 81mg qd Cesar Coated 2004 - F. user, 2006 MShaka Albuterol 03/06/ Hx Aerosol 90mcg/Dos 1unit prn Chau 2004 - e aixa Soto, 05/19/ Silas,FACP 2011 Niaspan Extended 03/03/ Hx Tablets 1000mg 30tab 1 po bid Cesar Release 2003 - s F. 03/04/ Mauser, 2004 M.D. Niaspan Extended 02/02/ Hx Tablets 500mg 180ta 2 po qd Cesar Release 2003 - bs F. 03/03/ user, 2003 M.D. Plavix 02/02/ Hx Tablets 75mg 90tab 1 po qd Cesar 2003 - s F. user, 2006 M.D. Diltiazem CD 02/02/ Hx Caps ER 120mg 90cap 1 po qd Cesar 2003 - 24HR s F. usedesirae, 2012 M.DChristelle Nitrodisc 02/02/ Hx Patches 0.4mg/El 90uni on in am off Cesar 2003 - r ts in pm F. Sammy, 2004 MShaka Zetia 03/26/ Hx 10 90uni qd Cesar 2002 - ts F. 05/19/ Sammy, 2005 M.Steve Omeprazole 00/00/ Hx Capsules 40mg 90cap 1 po qd Unknown 0000 - DR s 2011 Omeprazole 00/00/ Hx Capsules 40mg 1 po in am Unknown 0000 - DR 2015 Lisinopril /00/ Hx Tablets 5mg 90tab 1 by mouth Unknown 0000 - s every day 2013 Lisinopril /00/ Hx Tablets 5mg 90tab 2 by mouth Cesar 0000 - s every day F. Jazmine2013 Silas Diovan /00/ Hx Tablets 80mg 90tab 1 by mouth Cesar 0000 - s every day . Sammy2013 Silas Nexium /00/ Hx Capsules 40mg 1 by mouth Unknown 0000 - DR every 2015 Valsartan / Hx Tablets 80mg 270ta 3 tablets by Cesar 0000 - bs mouth every . [email or web address] MJosé. Esomeprazole 00/ Hx Capsules 40mg 1 tab by Unknown Magnesium 0000 - DR mouth a day 01/10/ at bedtime 2016 Tylenol /00/ Hx Tablets 650mg 2 po qd Unknown 0000 - ER 2017 Acetaminophen 00/ Hx Tablets 325mg 2 tablets by Unknown 0000 - mouth every 04/10/ 6 hours as 2018 needed for pain/fever Medications Administered in Office Medication Date Status Form Strength Qnty SIG Indications Ordering Provider Celestone 3 mg Administered Injection Kali and 3mg Kalyan Du MD Immunizations CPT Code Status Date Vaccine Lot # [id number] Given 06/24/2016 Pneumococcal Conjugate Vaccine 13 Valent For [id number] Intramuscular Use 89129 Given 09/26/2012 Zoster (Zostavax) [id number] Given 05/18/2012 Tdap - Tetanus/Diptheria/Acellular Pertussis [id number] Given 01/07/2000 Pneumonia Vaccine [id number] Refused 07/16/2010 Influenza Virus 3Yrs & Over Vital Signs Date Vital Result Comment 04/10/2018 Height 66 inches 5'6" Weight 163.00 lb Heart Rate 54 /min BP Systolic Sitting 120 mmHg BP Diastolic Sitting 60 mmHg Body Temperature 97.7 F O2 % BldC Oximetry 96 % BMI (Body Mass Index) 26.3 kg/m2 03/30/2018 Height 66 inches 5'6" Weight 167.00 lb Heart Rate 71 /min BP Systolic Sitting 140 mmHg BP Diastolic Sitting 70 mmHg BP Systolic Recheck 115 mmHg BP Diastolic Recheck 60 mmHg Body Temperature 97.8 F O2 % BldC Oximetry 96 % BMI (Body Mass Index) 27.0 kg/m2 02/08/2018 Height 66 inches 5'6" Weight 176.00 lb w/ shoes Heart Rate 64 /min reg BP Systolic Sitting 140 mmHg Lue reg cuff BP Diastolic Sitting 80 mmHg Lue reg cuff BP Systolic Standing 131 mmHg la repeat sitting BP Diastolic Standing 63 mmHg la repeat sitting Respiratory Rate 16 /min BMI (Body Mass Index) 28.4 kg/m2 Ejection Fraction 55-60% as of 08/2017 echo 12/29/2017 Height 66 inches 5'6" Weight 177.00 lb with boots Heart Rate 62 /min BP Systolic Sitting 154 mmHg LA, reg cuff BP Diastolic Sitting 76 mmHg LA, reg cuff BMI (Body Mass Index) 28.6 kg/m2 Ejection Fraction 55%-60% echo 09/12/17 12/16/2017 Height 66 inches 5'6" Weight 177.75 lb with boots Heart Rate 68 /min BP Systolic Sitting 178 mmHg LA, reg cuff BP Diastolic Sitting 80 mmHg LA, reg cuff BMI (Body Mass Index) 28.7 kg/m2 Ejection Fraction 55%-60% echo 09/12/17 12/02/2017 Height 66 inches 5'6" Weight 176.00 lb w/ shoes Heart Rate 64 /min reg BP Systolic Sitting 170 mmHg Lue BP Diastolic Sitting 80 mmHg Lue Respiratory Rate 16 /min Pain Level 2 BMI (Body Mass Index) 28.4 kg/m2 11/08/2017 Height 66 inches 5'6" Weight 165.00 lb Heart Rate 61 /min BP Systolic 164 mmHg BP Diastolic 72 mmHg Respiratory Rate 16 /min BMI (Body Mass Index) 26.6 kg/m2 09/21/2017 Weight 172.12 lb Heart Rate 72 /min BP Systolic Sitting 156 mmHg BP Diastolic Sitting 70 mmHg O2 % BldC Oximetry 96 % 09/15/2017 Weight 172.50 lb Heart Rate 72 /min BP Systolic Sitting 158 mmHg BP Diastolic Sitting 70 mmHg O2 % BldC Oximetry 98 % 06/30/2017 Height 65.5 inches 5'5.50" Weight 160.50 lb Heart Rate 58 /min BP Systolic Sitting 150 mmHg BP Diastolic Sitting 60 mmHg BP Systolic Recheck 158 mmHg BP Diastolic Recheck 72 mmHg Body Temperature 96.6 F O2 % BldC Oximetry 98 % BMI (Body Mass Index) 26.3 kg/m2 06/07/2017 Height 66 inches 5'6" Weight 161.25 lb with shoes Heart Rate 82 /min BP Systolic Sitting 126 mmHg LA reg cuff BP Diastolic Sitting 68 mmHg LA reg cuff BMI (Body Mass Index) 26.0 kg/m2 Ejection Fraction 55% - 60% stress echo 07/22/16 05/27/2017 Weight 162.00 lb Heart Rate 80 /min BP Systolic Sitting 174 mmHg BP Diastolic Sitting 80 mmHg Body Temperature 98.2 F O2 % BldC Oximetry 96 % 01/25/2017 Height 65.75 inches 5'5.75" Weight 168.25 lb Heart Rate 64 /min BP Systolic Sitting 170 mmHg BP Diastolic Sitting 70 mmHg Body Temperature 97.2 F O2 % BldC Oximetry 98 % BMI (Body Mass Index) 27.4 kg/m2 08/30/2016 Height 65.5 inches 5'5.50" Weight 167.00 lb w/shoes Heart Rate 70 /min BP Systolic Sitting 162 mmHg LA reg cuff BP Diastolic Sitting 80 mmHg LA reg cuff BMI (Body Mass Index) 27.4 kg/m2 Ejection Fraction 55-60% Stress echo 07/22/16 08/12/2016 Height 65.5 inches 5'5.50" Weight 169.00 lb with shoes Heart Rate 70 /min BP Systolic Sitting 146 mmHg LA reg cuff BP Diastolic Sitting 70 mmHg LA reg cuff BMI (Body Mass Index) 27.7 kg/m2 Ejection Fraction 55%-60% stress echo 07/22/16 08/02/2016 Heart Rate 64 /min BP Systolic 160 mmHg LA, home unit (sys low BP Diastolic 81 mmHg LA, home unit (sys low BP Systolic Sitting 178 mmHg LA, reg BP Diastolic Sitting 84 mmHg LA, reg BP Systolic Lying Down 170 mmHg Ra, reg BP Diastolic Lying Down 78 mmHg Ra, reg 07/08/2016 Height 65.5 inches 5'5.50" Weight 167.50 lb with shoes Heart Rate 62 /min BP Systolic Sitting 170 mmHg LA, regular BP Diastolic Sitting 80 mmHg LA, regular BMI (Body Mass Index) 27.4 kg/m2 Ejection Fraction >70 echo 03/15/13 06/24/2016 Height 65.5 inches 5'5.50" Weight 164.50 lb Heart Rate 58 /min BP Systolic Sitting 147 mmHg BP Diastolic Sitting 66 mmHg O2 % BldC Oximetry 98 % BMI (Body Mass Index) 27.0 kg/m2 05/13/2016 Height 66.50 inches 5'6.50" Weight 166.00 lb w/o shoes Heart Rate 62 /min BP Systolic Sitting 140 mmHg Ra reg cuff BP Diastolic Sitting 68 mmHg Ra reg cuff BMI (Body Mass Index) 26.4 kg/m2 03/03/2016 Height 66.50 inches 5'6.50" Weight 174.25 lb shoes Heart Rate 62 /min BP Systolic Sitting 150 mmHg LA, regular BP Diastolic Sitting 88 mmHg LA, regular BMI (Body Mass Index) 27.7 kg/m2 Ejection Fraction >70% echo 03/15/13 02/16/2016 Height 66.50 inches 5'6.50" Weight 173.25 lb w/shoes Heart Rate 64 /min 78 BP Systolic 188 mmHg LA home unit BP Diastolic 87 mmHg LA home unit BP Systolic Sitting 152 mmHg LA reg cuff BP Diastolic Sitting 78 mmHg LA reg cuff BMI (Body Mass Index) 27.5 kg/m2 Ejection Fraction > 70 echo 03/15/13 06/19/2015 Height 66.50 inches 5'6.50" Weight 167.38 lb Heart Rate 60 /min BP Systolic Sitting 136 mmHg BP Diastolic Sitting 62 mmHg Body Temperature 97.5 F O2 % BldC Oximetry 98 % BMI (Body Mass Index) 26.6 kg/m2 03/25/2015 Height 65.75 inches 5'5.75" Weight 166.31 lb no shoes Heart Rate 64 /min BP Systolic Sitting 142 mmHg LA, reg cuff BP Diastolic Sitting 86 mmHg LA, reg cuff BP Systolic Standing 140 mmHg LA BP Diastolic Standing 80 mmHg LA BP Systolic Lying Down 141 mmHg repeat la sitting BP Diastolic Lying Down 78 mmHg repeat la sitting Respiratory Rate 16 /min BMI (Body Mass Index) 27.0 kg/m2 08/08/2014 Height 66 inches 5'6" Weight 170.00 lb Heart Rate 58 /min BP Systolic Sitting 150 mmHg LA reg cuff BP Diastolic Sitting 70 mmHg LA reg cuff Respiratory Rate 16 /min BMI (Body Mass Index) 27.4 kg/m2 05/16/2014 Height 66 inches 5'6" Weight 168.00 lb Heart Rate 60 /min BP Systolic Sitting 138 mmHg BP Diastolic Sitting 60 mmHg Respiratory Rate 15 /min BMI (Body Mass Index) 27.1 kg/m2 04/25/2014 Height 66 inches 5'6" Weight 164.50 lb Heart Rate 60 /min BP Systolic Sitting 148 mmHg BP Diastolic Sitting 62 mmHg Body Temperature 97.7 F BMI (Body Mass Index) 26.5 kg/m2 04/17/2014 Height 66 inches 5'6" Heart Rate 64 /min BP Systolic Sitting 144 mmHg BP Diastolic Sitting 72 mmHg Respiratory Rate 15 /min 04/04/2014 Height 66 inches 5'6" Weight 169.00 lb Heart Rate 60 /min BP Systolic Sitting 148 mmHg BP Diastolic Sitting 64 mmHg Respiratory Rate 16 /min BMI (Body Mass Index) 27.3 kg/m2 02/05/2014 Height 66 inches 5'6" Weight 168.00 lb Heart Rate 72 /min BP Systolic Sitting 156 mmHg BP Diastolic Sitting 78 mmHg BMI (Body Mass Index) 27.1 kg/m2 08/29/2013 Height 66 inches 5'6" Weight 167.00 lb Heart Rate 64 /min Regular BP Systolic Sitting 152 mmHg BP Diastolic Sitting 72 mmHg BMI (Body Mass Index) 27.0 kg/m2 08/23/2013 Height 66 inches 5'6" Weight 163.00 lb Heart Rate 66 /min BP Systolic 150 mmHg BP Diastolic 72 mmHg Respiratory Rate 16 /min BMI (Body Mass Index) 26.3 kg/m2 08/09/2013 Height 66 inches 5'6" Weight 163.00 lb Heart Rate 64 /min BP Systolic Sitting 136 mmHg BP Diastolic Sitting 66 mmHg BMI (Body Mass Index) 26.3 kg/m2 04/17/2013 Height 66 inches 5'6" Weight 165.00 lb Heart Rate 64 /min BP Systolic Sitting 130 mmHg BP Diastolic Sitting 56 mmHg BMI (Body Mass Index) 26.6 kg/m2 02/15/2013 Height 65 inches 5'5" Weight 165.00 lb Heart Rate 60 /min BP Systolic Sitting 142 mmHg auto 172/124 his cuff BP Diastolic Sitting 62 mmHg auto 172/124 his cuff Respiratory Rate 16 /min BMI (Body Mass Index) 27.5 kg/m2 02/07/2013 Weight 169.00 lb Heart Rate 76 /min BP Systolic Sitting 162 mmHg BP Diastolic Sitting 82 mmHg Body Temperature 98.5 F 09/26/2012 Height 65.5 inches 5'5.50" Weight 166.00 lb Heart Rate 64 /min BP Systolic Sitting 150 mmHg BP Diastolic Sitting 76 mmHg Body Temperature 98.2 F BMI (Body Mass Index) 27.2 kg/m2 05/18/2012 Height 66.5 inches 5'6.50" Weight 164.00 lb Heart Rate 62 /min BP Systolic Sitting 140 mmHg BP Diastolic Sitting 70 mmHg Body Temperature 96.5 F lt ear BMI (Body Mass Index) 26.1 kg/m2 02/10/2012 Height 67 inches 5'7" Weight 172.00 lb Heart Rate 57 /min BP Systolic 140 mmHg BP Diastolic 80 mmHg Respiratory Rate 16 /min BMI (Body Mass Index) 26.9 kg/m2 07/22/2011 Height 67 inches 5'7" Weight 169.00 lb Heart Rate 72 /min BP Systolic Sitting 140 mmHg BP Diastolic Sitting 78 mmHg BMI (Body Mass Index) 26.5 kg/m2 02/11/2011 Height 67 inches 5'7" Weight 173.00 lb Heart Rate 61 /min BP Systolic Sitting 132 mmHg BP Diastolic Sitting 60 mmHg BMI (Body Mass Index) 27.1 kg/m2 07/16/2010 Height 67 inches 5'7" Weight 168.00 lb Heart Rate 68 /min BP Systolic 132 mmHg BP Diastolic 80 mmHg BMI (Body Mass Index) 26.3 kg/m2 09/05/2009 Height 67 inches 5'7" Weight 173.00 lb Heart Rate 64 /min BP Systolic Sitting 164 mmHg BP Diastolic Sitting 84 mmHg BMI (Body Mass Index) 27.1 kg/m2 05/23/2008 Height 67 inches 5'7" Weight 166.00 lb Heart Rate 59 /min BP Systolic Sitting 138 mmHg L BP Diastolic Sitting 64 mmHg L BMI (Body Mass Index) 26.0 kg/m2 04/23/2008 Height 67 inches 5'7" Weight 168.00 lb Heart Rate 60 /min BP Systolic Sitting 122 mmHg BP Diastolic Sitting 64 mmHg BMI (Body Mass Index) 26.3 kg/m2 02/05/2008 Height 67 inches 5'7" Weight 172.00 lb Heart Rate 80 /min BP Systolic Sitting 142 mmHg BP Diastolic Sitting 72 mmHg BMI (Body Mass Index) 26.9 kg/m2 08/29/2007 Height 67 inches 5'7" Weight 172.00 lb Heart Rate 58 /min BP Systolic Sitting 140 mmHg BP Diastolic Sitting 70 mmHg Respiratory Rate 16 /min BMI (Body Mass Index) 26.9 kg/m2 02/24/2007 Height 67 inches 5'7" Weight 170.00 lb Heart Rate 62 /min BP Systolic Sitting 140 mmHg BP Diastolic Sitting 70 mmHg Respiratory Rate 16 /min BMI (Body Mass Index) 26.6 kg/m2 09/29/2006 Height 67 inches 5'7" Weight 172.00 lb Heart Rate 63 /min BP Systolic Sitting 132 mmHg L BP Diastolic Sitting 60 mmHg L BP Systolic Standing 120 mmHg L BP Diastolic Standing 60 mmHg L BMI (Body Mass Index) 26.9 kg/m2 05/19/2006 Height 67 inches 5'7" Weight 172.00 lb Heart Rate 68 /min BP Systolic Sitting 140 mmHg L BP Diastolic Sitting 70 mmHg L BP Systolic Standing 130 mmHg L BP Diastolic Standing 70 mmHg L BMI (Body Mass Index) 26.9 kg/m2 03/04/2005 Height 67 inches 5'7" Weight 171.00 lb Heart Rate 61 /min BP Systolic Sitting 150 mmHg BP Diastolic Sitting 80 mmHg BP Systolic Standing 140 mmHg BP Diastolic Standing 80 mmHg BMI (Body Mass Index) 26.8 kg/m2 03/06/2004 Height 67 inches Weight 175.00 lb Heart Rate 67 /min BP Systolic Sitting 140 mmHg BP Diastolic Sitting 88 mmHg BP Systolic Standing 128 mmHg BP Diastolic Standing 84 mmHg BMI (Body Mass Index) 27.4 kg/m2 Results Test Date Test Result H/L Range Note Basic Metabolic Panel 02/06/2018 Sodium 138 mmol/L Low 139-145 Potassium 4.2 mmol/L 3.5-5.0 Chloride 102 mmol/L 101-111 Co2 Carbon Dioxide 26 mmol/L 22-32 Anion Gap 10 mmol/L 2-11 Glucose 121 mg/dL High 70-100 Blood Urea Nitrogen 29 mg/dL High 6-24 Creatinine 1.40 mg/dL High 0.67-1.17 BUN/Creatinine Ratio 20.7 High 8-20 Calcium 9.0 mg/dL 8.6-10.3 Egfr Non- 48.4 >60 Egfr 62.2 >60 1 Comp Metabolic Panel 01/24/2018 Sodium 139 mmol/L 139-145 Potassium 4.3 mmol/L 3.5-5.0 Chloride 105 mmol/L 101-111 Co2 Carbon Dioxide 29 mmol/L 22-32 Anion Gap 5 mmol/L 2-11 Glucose 106 mg/dL High 70-100 Blood Urea Nitrogen 21 mg/dL 6-24 Creatinine 1.26 mg/dL High 0.67-1.17 BUN/Creatinine Ratio 16.7 8-20 Calcium 9.1 mg/dL 8.6-10.3 Total Protein 6.9 g/dL 6.4-8.9 Albumin 3.9 g/dL 3.2-5.2 Globulin 3.0 g/dL 2-4 Albumin/Globulin Ratio 1.3 1-3 Total Bilirubin 0.40 mg/dL 0.2-1.0 Alkaline Phosphatase 66 U/L 34-104 Alt 10 U/L 7-52 Ast 16 U/L 13-39 Egfr Non- 54.7 >60 Egfr 70.3 >60 2 CBC Auto Diff 01/24/2018 White Blood Count 7.3 10^3/uL 3.5-10.8 Red Blood Count 4.11 10^6/uL 4.0-5.4 Hemoglobin 12.2 g/dL Low 14.0-18.0 Hematocrit 36 % Low 42-52 Mean Corpuscular Volume 88 fL 80-94 Mean Corpuscular Hemoglobin 30 pg 27-31 Mean Corpuscular HGB Conc 34 g/dL 31-36 Red Cell Distribution Width 15 % 10.5-15 Platelet Count 292 10^3/uL 150-450 Mean Platelet Volume 7.9 um3 7.4-10.4 Abs Neutrophils 4.7 10^3/uL 1.5-7.7 Abs Lymphocytes 1.4 10^3/uL 1.0-4.8 Abs Monocytes 0.7 10^3/uL 0-0.8 Abs Eosinophils 0.5 10^3/uL 0-0.6 Abs Basophils 0.1 10^3/uL 0-0.2 Abs Nucleated RBC 0 10^3/uL Granulocyte % 63.6 % 38-83 Lymphocyte % 19.2 % Low 25-47 Monocyte % 9.7 % High 0-7 Eosinophil % 6.5 % High 0-6 Basophil % 1.0 % 0-2 Nucleated Red Blood Cells % 0 Basic Metabolic Panel 01/06/2018 Sodium 140 mmol/L 133-145 Potassium 4.3 mmol/L 3.5-5.0 Chloride 106 mmol/L 101-111 Co2 Carbon Dioxide 27 mmol/L 22-32 Anion Gap 7 mmol/L 2-11 Glucose 121 mg/dL High 70-100 Blood Urea Nitrogen 21 mg/dL 6-24 Creatinine 1.40 mg/dL High 0.67-1.17 BUN/Creatinine Ratio 15.0 8-20 Calcium 9.0 mg/dL 8.6-10.3 Egfr Non- 48.4 >60 Egfr 62.2 >60 3 Laboratory test finding 01/06/2018 Magnesium 1.9 mg/dL 1.9-2.7 Comp Metabolic Panel 07/12/2017 Sodium 136 mmol/L 133-145 Potassium 4.0 mmol/L 3.5-5.0 Chloride 106 mmol/L 101-111 Co2 Carbon Dioxide 24 mmol/L 22-32 Anion Gap 6 mmol/L 2-11 Glucose 195 mg/dL High 70-100 Blood Urea Nitrogen 15 mg/dL 6-24 Creatinine 1.18 mg/dL High 0.67-1.17 BUN/Creatinine Ratio 12.7 8-20 Calcium 8.4 mg/dL Low 8.6-10.3 Total Protein 6.4 g/dL 6.4-8.9 Albumin 3.6 g/dL 3.2-5.2 Globulin 2.8 g/dL 2-4 Albumin/Globulin Ratio 1.3 1-3 Total Bilirubin 0.50 mg/dL 0.2-1.0 Alkaline Phosphatase 82 U/L 34-104 Alt 9 U/L 7-52 Ast 12 U/L Low 13-39 Egfr Non- 59.0 >60 Egfr 75.8 >60 4 CBC Auto Diff 07/12/2017 White Blood Count 8.6 10^3/uL 3.5-10.8 Red Blood Count 4.10 10^6/uL 4.0-5.4 Hemoglobin 12.2 g/dL Low 14.0-18.0 Hematocrit 36 % Low 42-52 Mean Corpuscular Volume 89 fL 80-94 Mean Corpuscular Hemoglobin 30 pg 27-31 Mean Corpuscular HGB Conc 34 g/dL 31-36 Red Cell Distribution Width 14 % 10.5-15 Platelet Count 294 10^3/uL 150-450 Mean Platelet Volume 8 um3 7.4-10.4 Abs Neutrophils 4.9 10^3/uL 1.5-7.7 Abs Lymphocytes 1.3 10^3/uL 1.0-4.8 Abs Monocytes 0.7 10^3/uL 0-0.8 Abs Eosinophils 1.6 10^3/uL High 0-0.6 Abs Basophils 0.1 10^3/uL 0-0.2 Abs Nucleated RBC 0 10^3/uL Granulocyte % 56.9 % 38-83 Lymphocyte % 15.2 % Low 25-47 Monocyte % 8.6 % 1-9 Eosinophil % 18.1 % High 0-6 Basophil % 1.2 % 0-2 Nucleated Red Blood Cells % 0 Basic Metabolic Panel 05/31/2017 Sodium 137 mmol/L 133-145 Potassium 4.3 mmol/L 3.5-5.0 Chloride 103 mmol/L 101-111 Co2 Carbon Dioxide 28 mmol/L 22-32 Anion Gap 6 mmol/L 2-11 Glucose 96 mg/dL 70-100 Blood Urea Nitrogen 17 mg/dL 6-24 Creatinine 1.21 mg/dL High 0.67-1.17 BUN/Creatinine Ratio 14.0 8-20 Calcium 8.7 mg/dL 8.6-10.3 Egfr Non- 57.3 >60 Egfr 73.7 >60 5 Lipid Profile (Trig/Chol/HDL) 05/31/2017 Triglycerides 110 mg/dL 6 Cholesterol 208 mg/dL 7 HDL Cholesterol 41.0 mg/dL 8 LDL Cholesterol 145 mg/dL 9 Laboratory test finding 02/01/2017 Surgical Interface Order SEE RESULT BELOW 10 Ua Routine 01/25/2017 Ua Specific [place] 1.015 Ua PH 5.0 Ua Color yellow Ua Appera clear Ua WBC neg Ua Protein neg Ua Glucose neg Ua Ketones neg Ua Bilirubin neg Ua Urobilinogen normal Ua Nitrite neg Ua Occult Blood neg Basic Metabolic Panel 08/23/2016 Sodium 137 mmol/L 133-145 Potassium 4.8 mmol/L 3.5-5.0 Chloride 102 mmol/L 101-111 Co2 Carbon Dioxide 27 mmol/L 22-32 Anion Gap 8 mmol/L 2-11 Glucose 128 mg/dL High 70-100 Blood Urea Nitrogen 22 mg/dL 6-24 Creatinine 1.34 mg/dL High 0.67-1.17 BUN/Creatinine Ratio 16.4 8-20 Calcium 9.2 mg/dL 8.6-10.3 Egfr Non- 51.0 >60 Egfr 65.6 >60 11 Basic Metabolic Panel 07/22/2016 Sodium 138 mmol/L 133-145 Potassium 4.6 mmol/L 3.5-5.0 Chloride 105 mmol/L 101-111 Co2 Carbon Dioxide 27 mmol/L 22-32 Anion Gap 6 mmol/L 2-11 Glucose 98 mg/dL 70-100 Blood Urea Nitrogen 23 mg/dL 6-24 Creatinine 1.39 mg/dL High 0.67-1.17 BUN/Creatinine Ratio 16.5 8-20 Calcium 9.0 mg/dL 8.6-10.3 Egfr Non- 48.9 >60 Egfr 62.9 >60 12 Lipid Panel - [facility] 05/12/2016 Creatine Kinase(CK) 106 U/L 10-223 13 Comp Metabolic Panel 05/12/2016 Sodium 139 mmol/L 133-145 Potassium 4.6 mmol/L 3.5-5.0 Chloride 107 mmol/L 101-111 Co2 Carbon Dioxide 27 mmol/L 22-32 Anion Gap 5 mmol/L 2-11 Glucose 99 mg/dL 70-100 Blood Urea Nitrogen 22 mg/dL 6-24 Creatinine 1.22 mg/dL High 0.67-1.17 BUN/Creatinine Ratio 18.0 8-20 Calcium 8.8 mg/dL 8.6-10.3 Total Protein 6.5 g/dL 6.4-8.9 Albumin 3.8 g/dL 3.2-5.2 Globulin 2.7 g/dL 2-4 Albumin/Globulin Ratio 1.4 1-3 Total Bilirubin 0.50 mg/dL 0.2-1.0 Alkaline Phosphatase 79 U/L 34-104 Alt 8 U/L 7-52 Ast 15 U/L 13-39 Egfr Non- 57.0 >60 Egfr 73.3 >60 14 Lipid Profile (Trig/Chol/HDL) 05/12/2016 Triglycerides 80 mg/dL 15 Cholesterol 231 mg/dL 16 HDL Cholesterol 42.4 mg/dL 17 LDL Cholesterol 173 mg/dL 18 CBC Auto Diff 05/12/2016 White Blood Count 8.1 10^3/uL 3.5-10.8 Red Blood Count 4.19 10^6/uL 4.0-5.4 Hemoglobin 12.8 g/dL Low 14.0-18.0 Hematocrit 38 % Low 42-52 Mean Corpuscular Volume 89 fL 80-94 Mean Corpuscular Hemoglobin 31 pg 27-31 Mean Corpuscular HGB Conc 34 g/dL 31-36 Red Cell Distribution Width 14 % 10.5-15 Platelet Count 276 10^3/uL 150-450 Mean Platelet Volume 8 um3 7.4-10.4 Abs Neutrophils 4.0 10^3/uL 1.5-7.7 Abs Lymphocytes 1.6 10^3/uL 1.0-4.8 Abs Monocytes 0.8 10^3/uL 0-0.8 Abs Eosinophils 1.6 10^3/uL High 0-0.6 Abs Basophils 0.1 10^3/uL 0-0.2 Abs Nucleated RBC 0.01 10^3/uL Granulocyte % 49.3 % 38-83 Lymphocyte % 19.1 % Low 25-47 Monocyte % 10.3 % High 1-9 Eosinophil % 19.9 % High 0-6 Basophil % 1.4 % 0-2 Nucleated Red Blood Cells % 0.1 CBC Auto Diff 01/26/2016 White Blood Count 7.8 10^3/uL 3.5-10.8 Red Blood Count 4.04 10^6/uL 4.0-5.4 Hemoglobin 12.5 g/dL Low 14.0-18.0 Hematocrit 36 % Low 42-52 Mean Corpuscular Volume 90 fL 80-94 Mean Corpuscular Hemoglobin 31 pg 27-31 Mean Corpuscular HGB Conc 34 g/dL 31-36 Red Cell Distribution Width 13 % 10.5-15 Platelet Count 277 10^3/uL 150-450 Mean Platelet Volume 8 um3 7.4-10.4 Abs Neutrophils 4.9 10^3/uL 1.5-7.7 Abs Lymphocytes 1.5 10^3/uL 1.0-4.8 Abs Monocytes 0.8 10^3/uL 0-0.8 Abs Eosinophils 0.6 10^3/uL 0-0.6 Abs Basophils 0.1 10^3/uL 0-0.2 Abs Nucleated RBC 0.01 10^3/uL Granulocyte % 62.5 % 38-83 Lymphocyte % 18.6 % Low 25-47 Monocyte % 10.7 % High 1-9 Eosinophil % 7.4 % High 0-6 Basophil % 0.8 % 0-2 Nucleated Red Blood Cells % 0.1 Comp Metabolic Panel 01/26/2016 Sodium 137 mmol/L 133-145 Potassium 4.3 mmol/L 3.5-5.0 Chloride 103 mmol/L 101-111 Co2 Carbon Dioxide 26 mmol/L 22-32 Anion Gap 8 mmol/L 2-11 Glucose 103 mg/dL High 70-100 Blood Urea Nitrogen 16 mg/dL 6-24 Creatinine 1.10 mg/dL 0.67-1.17 BUN/Creatinine Ratio 14.5 8-20 Calcium 9.0 mg/dL 8.6-10.3 Total Protein 6.9 g/dL 6.4-8.9 Albumin 4.0 g/dL 3.2-5.2 Globulin 2.9 g/dL 2-4 Albumin/Globulin Ratio 1.4 1-3 Total Bilirubin 0.40 mg/dL 0.2-1.0 Alkaline Phosphatase 75 U/L 34-104 Alt 9 U/L 7-52 Ast 14 U/L 13-39 Egfr Non- 64.2 >60 Egfr 82.6 >60 19 Laboratory test 01/26/2016 Carcinoembryonic Antigen 1.6 ng/mL 0.1-5.0 20 finding Cea Laboratory test 01/20/2016 Surgical Pathology SEE RESULT 21 finding BELOW Laboratory test 09/09/2015 Surgical Pathology SEE RESULT 22 finding BELOW Lipid Panel - [facility] 05/22/2015 Creatine Kinase 105 U/L 10-223 23 Comp Metabolic Panel 05/22/2015 Sodium 140 mmol/L 133-145 Potassium 4.1 mmol/L 3.5-5.0 Chloride 105 mmol/L 101-111 Co2 Carbon Dioxide 28 mmol/L 22-32 Anion Gap 7 mmol/L 2-11 Glucose 98 mg/dL 70-100 Blood Urea Nitrogen 17 mg/dL 6-24 Creatinine 1.24 mg/dL High 0.67-1.17 BUN/Creatinine Ratio 13.7 8-20 Calcium 8.9 mg/dL 8.6-10.3 Total Protein 6.6 g/dL 6.4-8.9 Albumin 4.2 g/dL 3.2-5.2 Globulin 2.4 g/dL 2-4 Albumin/Globulin Ratio 1.8 1-3 Total Bilirubin 0.50 mg/dL 0.2-1.0 Alkaline Phosphatase 75 U/L 34-104 Alt 8 U/L 7-52 Ast 16 U/L 13-39 Egfr Non- 56.0 >60 Egfr 72.0 >60 24 Lipid Profile (Trig/Chol/HDL) 05/22/2015 Triglycerides 93 mg/dL 25 Cholesterol 236 mg/dL 26 HDL Cholesterol 45.5 mg/dL 27 LDL Cholesterol 172 mg/dL 28 CBC Auto Diff 05/22/2015 White Blood Count 7.8 10^3/uL 4.8-10.8 Red Blood Count 4.42 10^6/uL 4.0-5.4 Hemoglobin 13.4 g/dL Low 14.0-18.0 Hematocrit 41 % Low 42-52 Mean Corpuscular Volume 93 fL 80-94 Mean Corpuscular Hemoglobin 30 pg 27-31 Mean Corpuscular HGB Conc 33 g/dL 31-36 Red Cell Distribution Width 13 % 10.5-15 Platelet Count 282 10^3/uL 150-450 Mean Platelet Volume 8 um3 7.4-10.4 Abs Neutrophils 3.7 10^3/uL 1.5-7.7 Abs Lymphocytes 1.8 10^3/uL 1.0-4.8 Abs Monocytes 0.7 10^3/uL 0-0.8 Abs Eosinophils 1.5 10^3/uL High 0-0.6 Abs Basophils 0.1 10^3/uL 0-0.2 Abs Nucleated RBC 0 10^3/uL Granulocyte % 47.2 % 38-83 Lymphocyte % 23.2 % Low 25-47 Monocyte % 8.7 % 1-9 Eosinophil % 19.2 % High 0-6 Basophil % 1.7 % 0-2 Nucleated Red Blood Cells % 0 Laboratory test finding 05/22/2015 TSH (Thyroid Stim Horm) 4.08 ?IU/mL 0.34-5.60 29 Basic Metabolic Panel 04/15/2014 Sodium 143 mmol/L 133-145 Potassium 4.1 mmol/L 3.7-5.6 Chloride 111 mmol/L 101-111 Co2 Carbon Dioxide 25 mmol/L 22-32 Anion Gap 7 mmol/L 2-11 Glucose 103 mg/dL High 70-100 Blood Urea Nitrogen 17 mg/dL 6-24 Creatinine 1.08 mg/dL 0.67-1.17 BUN/Creatinine Ratio 15.7 8-20 Calcium 8.8 mg/dL 8.6-10.3 Egfr Non- 66.0 >60 Egfr 84.8 >60 30 Basic Metabolic Panel 04/02/2014 Sodium 137 mmol/L 133-145 31 Potassium 4.3 mmol/L 3.7-5.6 31 Chloride 105 mmol/L 101-111 31 Co2 Carbon Dioxide 27 mmol/L 22-32 31 Anion Gap 5 mmol/L 2-11 31 Glucose 95 mg/dL 70-100 31 Blood Urea Nitrogen 19 mg/dL 6-24 31 Creatinine 1.22 mg/dL High 0.67-1.17 31 BUN/Creatinine Ratio 15.6 8-20 31 Calcium 9.1 mg/dL 8.6-10.3 31 Egfr Non- 57.3 >60 31 Egfr 73.7 >60 31, 32 Lipid Profile (Trig/Chol/HDL) 10/02/2013 Triglycerides 80 mg/dL 40-200 Cholesterol 206 mg/dL High Less than 200 HDL Cholesterol 58 mg/dL 40-60 33 Cholesterol/HDL Ratio 3.6 Average 1-4.44 LDL Cholesterol 132.0 High Less Than 100 34 Lipid Panel - [facility] 07/31/2013 Creatine Kinase 72 U/L 0-200 35 Comp Metabolic Panel 07/31/2013 Sodium 137 mmol/L 133-145 Potassium 4.3 mmol/L 3.5-5.0 Chloride 104 mmol/L 101-111 Co2 Carbon Dioxide 28.0 mmol/L 22-32 Anion Gap 5.0 mmol/L 2-11 Glucose 105 mg/dL High 70-100 Blood Urea Nitrogen 12 mg/dL 6-24 Creatinine 1.30 mg/dL 0.50-1.40 BUN/Creatinine Ratio 9.2 8-20 Calcium 8.9 mg/dL 8.1-9.9 Total Protein 6.0 g/dL Low 6.2-8.1 Albumin 3.4 g/dL 3.2-5.2 Globulin 2.6 g/dL 2-4 Albumin/Globulin Ratio 1.3 1-3 Total Bilirubin 0.6 mg/dL 0.4-1.5 Alkaline Phosphatase 81 U/L 30-110 Alt 10 U/L Low 14-54 Ast 16 U/L 12-42 Egfr Non- 53.3 >60 Egfr 68.5 >60 36 Lipid Profile (Trig/Chol/HDL) 07/31/2013 Triglycerides 78 mg/dL 40-200 Cholesterol 238 mg/dL High Less than 200 HDL Cholesterol 49 mg/dL 40-60 37 Cholesterol/HDL Ratio 4.9 Average High 1-4.44 LDL Cholesterol 173.4 High Less Than 100 38 Lipid Profile (Trig/Chol/HDL) 06/21/2013 Triglycerides 134 mg/dL 40-200 Cholesterol 234 mg/dL High Less than 200 HDL Cholesterol 53 mg/dL 40-60 39 Cholesterol/HDL Ratio 4.4 Average 1-4.44 LDL Cholesterol 154.2 High Less Than 100 40 Surgical Pathology 05/01/2013 S RUN DATE: 05/02/ <SEE NOTE> 41 Basic Metabolic Panel 02/12/2013 Sodium 139 mmol/L 133-145 Potassium 4.1 mmol/L 3.5-5.0 Chloride 108 mmol/L 101-111 Co2 Carbon Dioxide 25.0 mmol/L 22-32 Anion Gap 6.0 mmol/L 2-11 Glucose 104 mg/dL High 70-100 Blood Urea Nitrogen 12 mg/dL 6-24 Creatinine 1.10 mg/dL 0.50-1.40 BUN/Creatinine Ratio 10.9 8-20 Calcium 8.7 mg/dL 8.1-9.9 Egfr Non- 64.7 >60 Egfr 83.3 >60 42 Laboratory test finding 02/12/2013 TSH (Thyroid Stimulating 2.68 miu/mL 0.34-5.60 Horm) Free T4 0.89 ng/mL 0.61-1.24 Laboratory test finding 02/12/2013 Vitamin B12 404 pg/mL 180-914 Vitamin D, 25 Hydroxy 02/12/2013 25-Hydroxy Vitamin D2 <4.0 ng/mL 25-Hydroxy Vitamin D3 37 ng/mL 25-Hydroxy Vitamin D Total 37 ng/mL 43 Laboratory test finding 02/12/2013 Creatine Kinase 112 U/L 0-200 Lipid Profile (Trig/Chol/HDL) 02/12/2013 Triglycerides 60 mg/dL 40-200 Cholesterol 174 mg/dL Less than 200 HDL Cholesterol 44 mg/dL 40-60 44 Cholesterol/HDL Ratio 4.0 Average 1-4.44 LDL Cholesterol 118.0 mg/dL High Less Than 100 45 CBC No Diff 02/12/2013 White Blood Count 8.6 10^3/uL 4.8-10.8 Red Blood Count 3.96 10^6/uL Low 4.0-5.4 Hemoglobin 11.4 g/dL Low 14.0-18.0 Hematocrit 35 % Low 42-52 Mean Corpuscular Volume 87 fL 80-94 Mean Corpuscular Hemoglobin 29 pg 27-31 Mean Corpuscular HGB Conc 33 g/dL 31-36 Red Cell Distribution Width 13 % 10.5-15 Platelet Count 398 10^3/uL 150-450 Mean Platelet Volume 7 um3 Low 7.4-10.4 Surgical Pathology 03/07/2012 Surgical Pathology <SEE 46 NOTE> Laboratory test 02/22/2012 CPK (Creatine 190 U/L 0-200 finding Kinase) TSH 4.04 MIU/ML 0.34-5.60 Lipid Profile (Trig/Chol/HDL) 02/22/2012 Triglyceride 81 mg/dL 40-200 Cholesterol 205 mg/dL High Less Than 200 47 High Density Lipoprotein 49 mg/dL 40-60 48 Cholesterol/HDL Ratio 4.18 AVERAGE 1-4.97 Low Density Lipoprotein 140 mg/dL High Less Than 100 49 Comp Metabolic Panel 02/22/2012 Sodium 138 mmol/L 135-145 Potassium 4.2 mmol/L 3.5-5.0 Chloride 107 mmol/L 101-111 Co2 (Carbon Dioxide) 26.0 mmol/L 22-32 Anion Gap 5.0 mmol/L 2-11 50 Glucose 105 mg/dL High 70-100 BUN 16 mg/dL 6-24 Creatinine 1.0 mg/dL 0.50-1.40 One Over Creatinine 1.00 BUN/Creatinine Ratio 16.0 8-20 Calcium 8.8 mg/dL 8.1-9.9 Total Protein 6.4 GM/DL 6.2-8.1 Albumin 3.8 GM/DL 3.2-5.2 Globulin 2.6 GM/DL 2-4 Albumin/Globulin Ratio 1.5 1-3 Bilirubin Total 0.9 mg/dL 0.4-1.5 51 Alkaline Phosphatase 66 U/L 39-117 Alt (SGPT) 13 U/L Low 17-63 Ast (Sgot) 23 U/L 12-42 eGFR Non- 72.5 > 60 eGFR 93.2 > 60 52 Lipid Profile (Trig/Chol/HDL) 07/19/2011 Triglyceride 88 mg/dL 40-200 Cholesterol 204 mg/dL High Less Than 200 53 High Density Lipoprotein 51 mg/dL 40-60 54 Cholesterol/HDL Ratio 4.00 AVERAGE 1-4.97 Low Density Lipoprotein 135 mg/dL High Less Than 100 55 Basic Metabolic Panel 07/19/2011 Sodium 139 mmol/L 135-145 Potassium 4.0 mmol/L 3.5-5.0 Chloride 104 mmol/L 101-111 Co2 (Carbon Dioxide) 28.0 mmol/L 22-32 Anion Gap 7.0 mmol/L 2-11 56 Glucose 100 mg/dL 70-100 BUN 13 mg/dL 6-24 Creatinine 1.0 mg/dL 0.50-1.40 One Over Creatinine 1.00 BUN/Creatinine Ratio 13.0 8-20 Calcium 8.9 mg/dL 8.1-9.9 eGFR Non- 72.5 > 60 eGFR 93.2 > 60 57 Laboratory test finding 07/19/2011 PSA Screening 1.01 NG/ML 0-4 58 Lipid Profile (Trig/Chol/HDL) 07/10/2010 Triglyceride 80 mg/dL 40-200 Cholesterol 209 mg/dL High Less Than 200 59 High Density Lipoprotein 48 mg/dL 40-60 60 Cholesterol/HDL Ratio 4.35 AVERAGE 1-4.97 Low Density Lipoprotein 145 mg/dL High Less Than 100 61 Comp Metabolic Panel 07/10/2010 Sodium 140 mmol/L 135-145 Potassium 4.3 mmol/L 3.5-5.0 Chloride 107 mmol/L 101-111 Co2 (Carbon Dioxide) 26.0 mmol/L 22-32 Anion Gap 7.0 mmol/L 2-11 62 Glucose 97 mg/dL 70-100 63 BUN 12 mg/dL 6-24 Creatinine 1.10 mg/dL 0.50-1.40 One Over Creatinine 0.90 BUN/Creatinine Ratio 10.9 8-20 Calcium 8.8 mg/dL 8.1-9.9 Total Protein 6.5 GM/DL 6.2-8.1 Albumin 4.0 GM/DL 3.2-5.2 Globulin 2.5 GM/DL 2-4 Albumin/Globulin Ratio 1.6 1-3 Bilirubin Total 1.0 mg/dL 0.4-1.5 64 Alkaline Phosphatase 73 U/L 39-117 Alt (SGPT) 15 U/L Low 17-63 Ast (Sgot) 19 U/L 12-42 eGFR Non- 69.2 > 60 eGFR 83.7 > 60 65 Lipid Panel - [facility] 07/10/2010 CPK (Creatine Kinase) 127 U/L 0-200 Laboratory test finding 05/07/2010 CPK (Creatine Kinase) 95 U/L 0-200 Basic Metabolic Panel 05/07/2010 Sodium 137 mmol/L 135-145 Potassium 4.1 mmol/L 3.5-5.0 Chloride 105 mmol/L 101-111 Co2 (Carbon Dioxide) 27.0 mmol/L 22-32 Anion Gap 5.0 mmol/L 2-11 66 Glucose 99 mg/dL 70-100 67 BUN 13 mg/dL 6-24 Creatinine 1.00 mg/dL 0.50-1.40 One Over Creatinine 1.00 BUN/Creatinine Ratio 13.0 8-20 Calcium 8.7 mg/dL 8.1-9.9 68 eGFR Non- 77.4 > 60 eGFR 93.7 > 60 69 Lipid Profile (Trig/Chol/HDL) 05/07/2010 Triglyceride 75 mg/dL 40-200 Cholesterol 198 mg/dL Less Than 200 70 High Density Lipoprotein 42 mg/dL 40-60 71 Cholesterol/HDL Ratio 4.71 AVERAGE 1-4.97 Low Density Lipoprotein 141 mg/dL High Less Than 100 72 Surgical Pathology 03/24/2010 Surgical Pathology <SEE 73 NOTE> Comp Metabolic 09/02/2009 Sodium 140 mmol/L 135-145 74 Panel Potassium 4.3 mmol/L 3.5-5.0 74 Chloride 108 mmol/L 101-111 74 Co2 (Carbon Dioxide) 29.0 mmol/L 22-32 74 Anion Gap 3.0 mmol/L 2-11 74, 75 Glucose 98 mg/dL 70-100 74, 76 BUN 11 mg/dL 6-24 74 Creatinine 1.00 mg/dL 0.50-1.40 74 One Over Creatinine 1.00 74 BUN/Creatinine Ratio 11.0 8-20 74 Calcium 8.8 mg/dL 8.1-9.9 74, 77 Total Protein 6.4 GM/DL 6.2-8.1 74 Albumin 3.7 GM/DL 3.2-5.2 74 Globulin 2.7 GM/DL 2-4 74 Albumin/Globulin Ratio 1.4 1-3 74 Bilirubin Total 0.8 mg/dL 0.4-1.5 74, 78 Alkaline Phosphatase 73 U/L 39-117 74 Alt (SGPT) 13 U/L Low 17-63 74 Ast (Sgot) 15 U/L 12-42 74 eGFR Non- 77.4 > 60 74 eGFR 93.7 > 60 74, 79 Lipid Profile (Trig/Chol/HDL) 09/02/2009 Triglyceride 87 mg/dL 40-200 74 Cholesterol 206 mg/dL High Less Than 200 74, 80 High Density Lipoprotein 48 mg/dL 40-60 74, 81 Cholesterol/HDL Ratio 4.29 AVERAGE 1-4.97 74 Low Density Lipoprotein 141 mg/dL High Less Than 100 74, 82 Laboratory test finding 09/02/2009 CPK (Creatine Kinase) 103 U/L 0-200 74 CBC With Electronic Diff 09/02/2009 White Blood Count 6.7 CUMM 4.8-10.8 74 Red Cell Count 4.46 CUMM Low 4.6-6.2 74 Hemoglobin 13.9 g/dL Low 14.0-18.0 74 Hematocrit 41 % Low 42-52 74 Mean Corpuscular Volume 91 um3 80-94 74 Mean Corpuscular Hemoglob 31 pg 27-31 74 Mean Corpuscular HGB Cone 34 g/dL 32-36 74 Redcell Distribution WDTH 14 % 10.5-15 74 Platelet Count 252 CUMM 150-450 74 Mean Platelet Volume 7.5 um3 7.4-10.4 74 Gran % 60.8 % 38-83 74 Lymph % 17.1 % Low 25-47 74 Mononuclear % 7.7 % 1-9 74 Eosinophil % 13.7 % High 0-6 74 Basophil % 0.7 % 0-2 74 Abs Lymphs 1.1 1.0-4.8 74 Abs Mononuclear 0.5 0-0.8 74 Absolute Neutrophil Count 4.0 1.5-7.7 74 Abs Eosinophils 0.9 High 0-0.6 74 Abs Basophils 0 0-0.2 74, 83 Lipid Profile (Trig/Chol/HDL) 05/06/2008 Triglyceride 63 mg/dL 40-200 74 Cholesterol 168 mg/dL Less Than 200 74, 84 High Density Lipoprotein 42 mg/dL 40-60 74, 85 Cholesterol/HDL Ratio 4.00 AVERAGE 1-4.97 74 Low Density Lipoprotein 113 mg/dL High Less Than 100 74, 86 Comp Metabolic Panel 05/06/2008 Sodium 138 mmol/L 135-145 74 Potassium 3.9 mmol/L 3.5-5.0 74 Chloride 108 mmol/L 101-111 74 Co2 (Carbon Dioxide) 24.0 mmol/L 22-32 74 Anion Gap 6.0 mmol/L 2-11 74, 87 Glucose 102 mg/dL 70-105 74 BUN 15 mg/dL 6-24 74 Creatinine 1.4 mg/dL 0.5-1.4 74 One Over Creatinine 0.71 74 BUN/Creatinine Ratio 10.7 8-20 74 Calcium 8.4 mg/dL 8.1-9.9 74, 88 Total Protein 6.4 GM/DL 6.2-8.1 74 Albumin 3.8 GM/DL 3.2-5.2 74 Globulin 2.6 GM/DL 2-4 74 Albumin/Globulin Ratio 1.5 1-3 74 Bilirubin Total 1.2 mg/dL 0.4-1.5 74 Alkaline Phosphatase 50 U/L 39-117 74 Alt (SGPT) 19 U/L 17-63 74 Ast (Sgot) 22 U/L 12-42 74 Lipid Panel - [facility] 05/06/2008 CPK (Creatine Kinase) 106 U/L 0-200 74 Laboratory test finding 05/06/2008 PSA Screening 0.65 NG/ML 0-4 Lipid Panel - [facility] 01/31/2008 CPK (Creatine Kinase) 68 U/L 0-200 74 Comp Metabolic Panel 01/31/2008 One Over Creatinine 0.62 74 Anion Gap 4.0 mmol/L 2-11 74, 89 Albumin/Globulin Ratio 1.7 1-3 74 Albumin 3.8 GM/DL 3.2-5.2 74 Alkaline Phosphatase 46 U/L 39-117 74 Alt (SGPT) 19 U/L 17-63 74 Ast (Sgot) 21 U/L 12-42 74 BUN 18 mg/dL 6-24 74 Calcium 9.0 mg/dL 8.7-10.2 74 Chloride 106 mmol/L 101-111 74 Co2 (Carbon Dioxide) 29.0 mmol/L 22-32 74 Globulin 2.3 GM/DL 2-4 74 Glucose 105 mg/dL 70-105 74 Potassium 4.3 mmol/L 3.5-5.0 74 Sodium 139 mmol/L 135-145 74 Bilirubin Total 0.6 mg/dL 0.4-1.5 74 Total Protein 6.1 GM/DL Low 6.2-8.1 74 BUN/Creatinine Ratio 11.3 8-20 74 Creatinine 1.6 mg/dL High 0.5-1.4 74 Lipid Profile 01/31/2008 Cholesterol/HDL Ratio 4.68 AVERAGE 1-4.97 74 (Trig/Chol/HDL) Cholesterol 192 mg/dL Less Than 200 74, 90 Triglyceride 112 mg/dL 40-200 74 High Density Lipoprotein 41 mg/dL 40-60 74, 91 Low Density Lipoprotein 129 mg/dL High Less Than 100 74, 92 Comp Metabolic Panel 09/04/2007 One Over Creatinine 0.66 93 Anion Gap 4.0 mmol/L 2-11 93, 94 Albumin/Globulin Ratio 1.4 1-3 93 Albumin 3.8 GM/DL 3.2-5.2 93 Alkaline Phosphatase 48 U/L 39-117 93 Alt (SGPT) 20 U/L 17-63 93 Ast (Sgot) 25 U/L 12-42 93 BUN 22 mg/dL 6-24 93 Calcium 9.0 mg/dL 8.7-10.2 93 Chloride 108 mmol/L 101-111 93 Co2 (Carbon Dioxide) 25.0 mmol/L 22-32 93 Globulin 2.8 GM/DL 2-4 93 Glucose 103 mg/dL 70-105 93 Potassium 4.3 mmol/L 3.5-5.0 93 Sodium 137 mmol/L 135-145 93 Bilirubin Total 0.8 mg/dL 0.4-1.5 93 Total Protein 6.6 GM/DL 6.2-8.1 93 BUN/Creatinine Ratio 14.7 8-20 93 Creatinine 1.5 mg/dL High 0.5-1.4 93 Lipid Profile 09/04/2007 Cholesterol/HDL Ratio 4.00 AVERAGE 1-4.97 93 (Trig/Chol/HDL) Cholesterol 192 mg/dL Less Than 200 93, 95 Triglyceride 55 mg/dL 40-200 93 High Density Lipoprotein 48 mg/dL 40-60 93 Low Density Lipoprotein 133 mg/dL High Less Than 100 93, 96 Laboratory test finding 09/04/2007 CPK (Creatine Kinase) 124 U/L 0-200 93 CBC With Manual Diff 09/04/2007 White Blood Count 6.1 CUMM 4.8-10.8 93 Absolute Neutrophil Count 3.7 93 Atypical Lymph 3 % 0-6 93 Anisocytosis SLIGHT 93 Hematocrit 36 % Low 42-52 93 Hemoglobin 12.5 g/dL Low 14.0-18.0 93 Eosenophil 4 % 0-6 93 Lymphocyte 23 % 5-47 93 Mean Corpuscular HGB Cone 35 g/dL 32-36 93 Mean Corpuscular Hemoglob 32 pg High 27-31 93 Mean Corpuscular Volume 91 um3 80-94 93 Monocyte 9 % 0-13 93 Mean Platelet Volume 7.7 um3 7.4-10.4 93 Platelet Count 311 CUMM 150-450 93 Polysegmented Neutrophil 61 % 38-83 93 Red Cell Count 3.93 CUMM Low 4.6-6.2 93 Redcell Distribution WDTH 13 % 10.5-15 93 Comp Metabolic Panel 02/09/2007 One Over Creatinine 0.71 97 Anion Gap 6.0 mmol/L 2-11 97, 98 Albumin/Globulin Ratio 1.7 1-3 97 Albumin 3.8 GM/DL 3.2-5.2 97 Alkaline Phosphatase 47 U/L 39-117 97 Alt (SGPT) 24 U/L 17-63 97 Ast (Sgot) 27 U/L 12-42 97 BUN 15 mg/dL 6-24 97 Calcium 9.3 mg/dL 8.7-10.2 97 Chloride 109 mmol/L 101-111 97 Co2 (Carbon Dioxide) 28.0 mmol/L 22-32 97 Globulin 2.3 GM/DL 2-4 97 Glucose 103 mg/dL 70-105 97 Potassium 4.4 mmol/L 3.5-5.0 97 Sodium 143 mmol/L 135-145 97 Bilirubin Total 0.8 mg/dL 0.4-1.5 97 Total Protein 6.1 GM/DL Low 6.2-8.1 97 BUN/Creatinine Ratio 10.7 8-20 97 Creatinine 1.4 mg/dL 0.5-1.4 97 Laboratory test finding 02/09/2007 CPK (Creatine Kinase) 88 U/L 0-200 97 TSH 2.53 MIU/ML 0.34-5.60 97 Homocysteine 13.0 UMOL/L High 4.3-11.4 97, 99 Vitamin B12 951 pg/mL High 180-914 97 Lipid Profile 02/09/2007 Cholesterol/HDL Ratio 4.48 AVERAGE 1-4.97 97 (Trig/Chol/HDL) Cholesterol 197 mg/dL Less Than 200 97, 100 Triglyceride 55 mg/dL 40-200 97 High Density Lipoprotein 44 mg/dL 40-60 97 Low Density Lipoprotein 142 mg/dL High Less Than 100 97, 101 Lipid Profile 05/10/2006 Cholesterol 206 mg/dL High Less Than 200 97, 102 (Trig/Chol/HDL) Triglyceride 151 mg/dL 40-200 97 High Density Lipoprotein 38 mg/dL Low 40-60 97, 103 Low Density Lipoprotein 138 mg/dL High Less Than 100 97, 104 Cholesterol/HDL Ratio 5.42 AVERAGE High 1-4.97 97 Laboratory test finding 05/10/2006 CPK (Creatine Kinase) 115 U/L 0-200 97 Comp Metabolic Panel 05/10/2006 One Over Creatinine 0.90 97 Anion Gap 5.0 mmol/L 2-11 97, 105 Albumin/Globulin Ratio 1.0 1-3 97 Albumin 3.7 GM/DL 3.2-5.2 97 Alkaline Phosphatase 76 U/L 39-117 97 Alt (SGPT) 14 U/L Low 17-63 97 Ast (Sgot) 18 U/L 12-42 97 BUN 13 mg/dL 6-24 97 Calcium 9.1 mg/dL 8.7-10.2 97 Chloride 108 mmol/L 101-111 97 Co2 (Carbon Dioxide) 28.0 mmol/L 22-32 97 Globulin 3.7 GM/DL 2-4 97 Glucose 101 mg/dL 70-105 97 Potassium 4.2 mmol/L 3.5-5.0 97 Sodium 141 mmol/L 135-145 97 Bilirubin Total 0.9 mg/dL 0.4-1.5 97 Total Protein 7.4 GM/DL 6.2-8.1 97 BUN/Creatinine Ratio 11.8 8-20 97 Creatinine 1.1 mg/dL 0.5-1.4 97 1 Because ethnic data is not always readily available, this report includes an eGFR for both -Americans and non- Americans. The National Kidney Disease Education Program (NKDEP) does not endorse the use of the MDRD equation for patients that are not between the ages of 18 and 70, are , have extremes of body size, muscle mass, or nutritional status, or are non- or non-. According to the [employer], irrespective of diagnosis, the stage of the disease is based on the level of kidney function: Stage Description GFR(mL/min/1.73 m(2)) 1 Kidney damage with normal or decreased GFR 90 2 Kidney damage with mild decrease in GFR 60-89 3 Moderate decrease in GFR 30-59 4 Severe decrease in GFR 15-29 5 Kidney failure <15 (or dialysis) 2 Because ethnic data is not always readily available, this report includes an eGFR for both -Americans and non- Americans. The National Kidney Disease Education Program (NKDEP) does not endorse the use of the MDRD equation for patients that are not between the ages of 18 and 70, are , have extremes of body size, muscle mass, or nutritional status, or are non- or non-. According to the [employer], irrespective of diagnosis, the stage of the disease is based on the level of kidney function: Stage Description GFR(mL/min/1.73 m(2)) 1 Kidney damage with normal or decreased GFR 90 2 Kidney damage with mild decrease in GFR 60-89 3 Moderate decrease in GFR 30-59 4 Severe decrease in GFR 15-29 5 Kidney failure <15 (or dialysis) 3 Because ethnic data is not always readily available, this report includes an eGFR for both -Americans and non- Americans. The National Kidney Disease Education Program (NKDEP) does not endorse the use of the MDRD equation for patients that are not between the ages of 18 and 70, are , have extremes of body size, muscle mass, or nutritional status, or are non- or non-. According to the National [facility], irrespective of diagnosis, the stage of the disease is based on the level of kidney function: Stage Description GFR(mL/min/1.73 m(2)) 1 Kidney damage with normal or decreased GFR 90 2 Kidney damage with mild decrease in GFR 60-89 3 Moderate decrease in GFR 30-59 4 Severe decrease in GFR 15-29 5 Kidney failure <15 (or dialysis) 4 Because ethnic data is not always readily available, this report includes an eGFR for both -Americans and non- Americans. The National Kidney Disease Education Program (NKDEP) does not endorse the use of the MDRD equation for patients that are not between the ages of 18 and 70, are , have extremes of body size, muscle mass, or nutritional status, or are non- or non-. According to the National Kidney Foundation, irrespective of diagnosis, the stage of the disease is based on the level of kidney function: Stage Description GFR(mL/min/1.73 m(2)) 1 Kidney damage with normal or decreased GFR 90 2 Kidney damage with mild decrease in GFR 60-89 3 Moderate decrease in GFR 30-59 4 Severe decrease in GFR 15-29 5 Kidney failure <15 (or dialysis) 5 Because ethnic data is not always readily available, this report includes an eGFR for both -Americans and non- Americans. The National Kidney Disease Education Program (NKDEP) does not endorse the use of the MDRD equation for patients that are not between the ages of 18 and 70, are , have extremes of body size, muscle mass, or nutritional status, or are non- or non-. According to the National Kidney Foundation, irrespective of diagnosis, the stage of the disease is based on the level of kidney function: Stage Description GFR(mL/min/1.73 m(2)) 1 Kidney damage with normal or decreased GFR 90 2 Kidney damage with mild decrease in GFR 60-89 3 Moderate decrease in GFR 30-59 4 Severe decrease in GFR 15-29 5 Kidney failure <15 (or dialysis) 6 Desirable <150 Borderline high 150-199 High 200-499 Very High >500 7 Desirable <200 Borderline high 200-239 High >239 8 Low <40 Desirable: 40-60 High: >60 9 Desirable: <100 mg/dL Near Optimal: 100-129 mg/dL Borderline High: 130-159 mg/dL High: 160-189 mg/dL Very High: >189 mg/dL 10 SEE RESULT BELOW Name: REJI COATS : [address]: Nolan Thomas MD Acct: [id number] Unit: [id number] AGE: 81 Location: ENDO Re02/01/17 SEX: M Status: DEP REF SPEC: [id number] MARYBETH: 02/01/17- [facility] DR: Nolan Thomas MD REQ: [id number] RECD: 02/01/17 STATUS: SONY ROBB DR: Deric Soto MD _ ORDERED: LEVEL IV/3, HER2 STAIN Immunohistochemical staining, with appropriately reacting controls, for HER-2 /dandre was performed on sections cut from specimen one and is positive (3+). Addendum Signed (signature on file) Puja Villavicencio MD 1245 FINAL DIAGNOSIS 1. Esophagus, right wall at 34 cm, biopsy: -- Invasive adenocarcinoma, well differentiated; see comment. 2. Hiatal hernia at 36 cm, biopsy: -- Invasive adenocarcinoma, well-differentiated; see comment. 3. Esophagus, left wall at 34 cm, biopsy: -- Invasive adenocarcinoma, well-differentiated; see comment. COMMENT: Immunohistochemical staining for HER-2/dandre is pending on specimen 1 and will be reported in an addendum. Dr. Delgadillo reviewed this case in intradepartmental consultation and agrees with the diagnosis. CLINICAL HISTORY Esophageal cancer POST-OPERATIVE DIAGNOSIS Larynx - narrow; esophagus - right wall at 33 plaque, biopsied x2 at 34 (4), left wall biopsied at 34 x2 (10); esophagogastric - irregular, eroded at 351/2 , biopsied x2 at 36 mm, hiatal hernia; hiatus at 39; stomach and duodenum - normal. Conclusions/Plan : Hiatal hernia, mass, stricture - biopsied and dilated CONTINUED ON NEXT PAGE * ML=Testing performed at Main Lab DEPARTMENT OF PATHOLOGY, [address] [place] [address] Baltazar Delgadillo M.D. Director CLIA # [id number] RUN DATE: 02/03/17 [facility] LAB LIVE PAGE 2 Patient: REJI COATS [id number] (Continued) GROSS DESCRIPTION (Continued) GROSS DESCRIPTION 1. The specimen is received in formalin labeled, Biopsy Right Wall Esophagus at 34 cm, and consists of two liu-pink irregular to polypoid soft tissue fragments measuring 0.4 x 0.3 x 0.2 cm and 0.5 x 0.3 x 0.2 cm, which are entirely submitted in one cassette. 2. The specimen is received in formalin labeled, Biopsy Hiatal Hernia at 36 cm, and consists of three liu-pink polypoid soft tissue fragments measuring 0.3 x 0.2 x 0.2 cm, 0.3 x 0.2 x 0.2 cm and 0.5 x 0.3 x 0.2 cm, which are entirely submitted in one cassette. 3. The specimen is received in formalin labeled, Biopsy Left Wall Esophagus at 34 cm, and consists of three spherical liu-brown irregular to polypoid soft tissue fragments measuring 0.2 x 0.2 x 0.1 cm, 0.4 x 0.2 x 0.1 cm and 0.4 x 0.3 x 0.2 cm, which are entirely submitted in one cassette. Signed (signature on file) Puja Villavicencio MD 1317 END OF REPORT * ML=Testing performed at Main Lab DEPARTMENT OF PATHOLOGY, [address] [place] [address] Baltazar Delgadillo M.D. Director [facility] # [id number] 11 Because ethnic data is not always readily available, this report includes an eGFR for both -Americans and non- Americans. The National Kidney Disease Education Program (NKDEP) does not endorse the use of the MDRD equation for patients that are not between the ages of 18 and 70, are , have extremes of body size, muscle mass, or nutritional status, or are non- or non-. According to the National Kidney Foundation, irrespective of diagnosis, the stage of the disease is based on the level of kidney function: Stage Description GFR(mL/min/1.73 m(2)) 1 Kidney damage with normal or decreased GFR 90 2 Kidney damage with mild decrease in GFR 60-89 3 Moderate decrease in GFR 30-59 4 Severe decrease in GFR 15-29 5 Kidney failure <15 (or dialysis) 12 Because ethnic data is not always readily available, this report includes an eGFR for both -Americans and non- Americans. The National Kidney Disease Education Program (NKDEP) does not endorse the use of the MDRD equation for patients that are not between the ages of 18 and 70, are , have extremes of body size, muscle mass, or nutritional status, or are non- or non-. According to the National Kidney Foundation, irrespective of diagnosis, the stage of the disease is based on the level of kidney function: Stage Description GFR(mL/min/1.73 m(2)) 1 Kidney damage with normal or decreased GFR 90 2 Kidney damage with mild decrease in GFR 60-89 3 Moderate decrease in GFR 30-59 4 Severe decrease in GFR 15-29 5 Kidney failure <15 (or dialysis) 13 FASTING 14 Because ethnic data is not always readily available, this report includes an eGFR for both -Americans and non- Americans. The National Kidney Disease Education Program (NKDEP) does not endorse the use of the MDRD equation for patients that are not between the ages of 18 and 70, are , have extremes of body size, muscle mass, or nutritional status, or are non- or non-. According to the National Kidney Foundation, irrespective of diagnosis, the stage of the disease is based on the level of kidney function: Stage Description GFR(mL/min/1.73 m(2)) 1 Kidney damage with normal or decreased GFR 90 2 Kidney damage with mild decrease in GFR 60-89 3 Moderate decrease in GFR 30-59 4 Severe decrease in GFR 15-29 5 Kidney failure <15 (or dialysis) 15 Desirable <150 Borderline high 150-199 High 200-499 Very High >500 16 Desirable <200 Borderline high 200-239 High >239 17 Low <40 Desirable: 40-60 High: >60 18 Desirable: <100 mg/dL Near Optimal: 100-129 mg/dL Borderline High: 130-159 mg/dL High: 160-189 mg/dL Very High: >189 mg/dL 19 Because ethnic data is not always readily available, this report includes an eGFR for both -Americans and non- Americans. The National Kidney Disease Education Program (NKDEP) does not endorse the use of the MDRD equation for patients that are not between the ages of 18 and 70, are , have extremes of body size, muscle mass, or nutritional status, or are non- or non-. According to the National Kidney Foundation, irrespective of diagnosis, the stage of the disease is based on the level of kidney function: Stage Description GFR(mL/min/1.73 m(2)) 1 Kidney damage with normal or decreased GFR 90 2 Kidney damage with mild decrease in GFR 60-89 3 Moderate decrease in GFR 30-59 4 Severe decrease in GFR 15-29 5 Kidney failure <15 (or dialysis) 20 Nonsmokers: < 2.9 ng/mL Some smokers may have elevated CEA, usually <5.0 ng/mL. Serum markers are not specific for malignancy, and values may vary by method. The testing method is an immunoenzymatic assay flight readiness technician by [employer] performed on [employer] DXI 600. Do not interpret serum CEA levels as absolute evidence of the presence or the absence of malignant disease. Use serum CEA in conjunction with information from the clinical evaluation of the patient and other diagnostic procedures. 21 SEE RESULT BELOW Name: REJI COATS : [address]: Nolan Thomas MD Acct: [id number] Unit: [id number] AGE: 80 Location: [facility] Re01/20/16 SEX: M Status: REG REF SPEC: [id number] MARYBETH: 01/20/16- SUBM DR: Nolan Thomas MD REQ: [id number] RECD: 01/20/16 STATUS: SONY ROBB DR: Chau oSto MD _ ORDERED: KERATIN STAIN, LEVEL IV FINAL DIAGNOSIS Esophagus at 35 cm, biopsy: -- Focal superficial invasive carcinoma involving lamina propria. See Comment. 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 -- Ulceration with associated acute and chronic inflammatory component identified. Comment: Biopsies demonstrate extensive high-grade dysplasia noted in the 3 glandular mucosal fragments examined. Focal underlying hyperplastic changes also noted. One of the 3 foci demonstrates angulated irregular small abortive glandular structures with cytologically malignant nuclei as well as single cells infiltrating into the lamina propria. This focus of invasion measures 1 mm in greatest span. An immunohistochemical stain for pankeratin with appropriate control highlights the architectural features of this invasive focus and supports the above rendered diagnosis. Dr. Villavicencio has reviewed this case and concurs. Case was discussed with Dr. Thomas 01/22/16. CLINICAL HISTORY No history given POST-OPERATIVE DIAGNOSIS Esophagus - 17 through 28 - normal, ? rings, then edema, 32 through 36 erosive sleeve severe, hiatal hernia. Stomach - normal, duodenum - normal. Dilated 1, 2, 3, DELONTE with dilating effect - biopsied x3 at 34 - 35. Conclusions/Plan: Hiatal hernia, severe erosive gastroesophageal reflux disease, scar stricture - dilated to 15. CONTINUED ON NEXT PAGE * ML=Testing performed at Main Lab DEPARTMENT OF PATHOLOGY, [address] [place] [address] Baltazar Delgadillo M.D. Director [facility] # [id number] RUN DATE: 01/22/16 [facility] LAB LIVE PAGE 2 Patient: REJI COATS [id number] (Continued) GROSS DESCRIPTION (Continued) GROSS DESCRIPTION The specimen is received in formalin labeled, Esophagus Biopsies at 35 cm, and consists of a 0.6 x 0.5 x 0.2 cm aggregate of liu irregular soft tissue fragments, which is submitted entirely in one cassette. Signed (signature on file) Baltazar Delgadillo MD 1608 END OF REPORT * ML=Testing performed at Main Lab DEPARTMENT OF PATHOLOGY, [address] [place] [address] Baltazar Delgadillo M.D. Director [facility] # [id number] 22 SEE RESULT BELOW Name: REJI COATS DOB: [address]: Nolan Thomas MD Acct: [id number] Unit: [id number] AGE: 80 Location: ENDO Re09/09/15 SEX: M Status: REG REF SPEC: [id number] MARYBETH: 09/09/15- SUBM DR: Nolan Thomas MD REQ: [id number] RECD: 09/09/15 STATUS: SONY ROBB DR: Chau Soto MD _ ORDERED: PASS STAIN/2, GMSS/2, LEVEL IV/3 Deeper levels of sectioning were performed in the evaluation of specimen 1 and specimen 3. GMS and PAS stains, with appropriately reacting controls, were also performed on specimen 1 and specimen 3 and are negative for fungal organisms. Addendum Signed (signature on file) Puja Villavicencio MD 10/31 1106 FINAL DIAGNOSIS 1. Esophagus, at 36 cm, biopsy: -- Ulcerated, inflamed polypoid columnar-type mucosa with extensive acute inflammation and reactive epithelial change; see comment. -- No evidence of malignancy. 2. Esophagus, at 37.5 cm, biopsy: -- Squamous and columnar mucosa with chronic and focal acute inflammation and intestinal metaplasia. -- Indefinite for dysplasia. 3. Esophagus, at 34 cm, biopsy: -- Ulcerated, acutely inflamed squamous and columnar mucosa; see comment. -- No evidence of malignancy. COMMENT: Fungal stains are pending for specimens 1 and 3 and the results will be reported in an addendum. CLINICAL HISTORY Lim's follow-up CONTINUED ON NEXT PAGE * ML=Testing performed at Main Lab DEPARTMENT OF PATHOLOGY, [address] [place] [address] Baltazar Delgadillo M.D. Director [facility] # [id number] RUN DATE: 09/16/15 [facility] LAB LIVE PAGE 2 Patient: REJI COATS [id number] (Continued) POST-OPERATIVE DIAGNOSIS (Continued) POST-OPERATIVE DIAGNOSIS Larynx - narrow; esophagus - normal to 20 then at 35 erosions with white "polyp", looks granulation biopsied at 36, 37.5, and 35; EG 38; stomach and duodenum - normal. Hiatal hernia, erosive gastroesophageal reflux disease, esophageal polyp. Follow-up one week GROSS DESCRIPTION 1. The specimen is received in formalin labeled, Biopsy Esophageal Polyp at 36 cm, and consists of a 0.8 x 0.5 x 0.1 cm aggregate of liu-pink irregular soft tissue fragments, which is submitted entirely in one cassette. 2. The specimen is received in formalin labeled, Biopsy Esophageal Erosions at 37.5 cm, and consists of a 0.6 x 0.4 x 0.1 cm aggregate of liu-pink irregular soft tissue fragments, which is submitted entirely in one cassette. 3. The specimen is received in formalin labeled, Biopsy Esophagus at 34 cm , and consists of two liu-pink irregular soft tissue fragments measuring 0.2 x 0.2 x 0.1 cm and 0.3 x 0.2 x 0.2 cm, which are submitted entirely in one cassette. Signed (signature on file) Puja Villavicencio MD 1402 END OF REPORT * ML=Testing performed at Main Lab DEPARTMENT OF PATHOLOGY, [address] [place] [address] Baltazar Delgadillo M.D. Director [facility] # [id number] 24 Because ethnic data is not always readily available, this report includes an eGFR for both -Americans and non- Americans. The National Kidney Disease Education Program (NKDEP) does not endorse the use of the MDRD equation for patients that are not between the ages of 18 and 70, are , have extremes of body size, muscle mass, or nutritional status, or are non- or non-. According to the National Kidney Foundation, irrespective of diagnosis, the stage of the disease is based on the level of kidney function: Stage Description GFR(mL/min/1.73 m(2)) 1 Kidney damage with normal or decreased GFR 90 2 Kidney damage with mild decrease in GFR 60-89 3 Moderate decrease in GFR 30-59 4 Severe decrease in GFR 15-29 5 Kidney failure <15 (or dialysis) 25 Desirable <150 Borderline high 150-199 High 200-499 Very High >500 26 Desirable <200 Borderline high 200-239 High >239 27 Low <40 Desirable: 40-60 High: >60 28 Desirable: <100 mg/dL Near Optimal: 100-129 mg/dL Borderline High: 130-159 mg/dL High: 160-189 mg/dL Very High: >189 mg/dL 29 FASTING 30 Because ethnic data is not always readily available, this report includes an eGFR for both -Americans and non- Americans. The National Kidney Disease Education Program (NKDEP) does not endorse the use of the MDRD equation for patients that are not between the ages of 18 and 70, are , have extremes of body size, muscle mass, or nutritional status, or are non- or non-. According to the National Kidney Foundation, irrespective of diagnosis, the stage of the disease is based on the level of kidney function: Stage Description GFR(mL/min/1.73 m(2)) 1 Kidney damage with normal or decreased GFR 90 2 Kidney damage with mild decrease in GFR 60-89 3 Moderate decrease in GFR 30-59 4 Severe decrease in GFR 15-29 5 Kidney failure <15 (or dialysis) 31 PT IS FASTING 32 Because ethnic data is not always readily available, this report includes an eGFR for both -Americans and non- Americans. The National Kidney Disease Education Program (NKDEP) does not endorse the use of the MDRD equation for patients that are not between the ages of 18 and 70, are , have extremes of body size, muscle mass, or nutritional status, or are non- or non-. According to the National Kidney Foundation, irrespective of diagnosis, the stage of the disease is based on the level of kidney function: Stage Description GFR(mL/min/1.73 m(2)) 1 Kidney damage with normal or decreased GFR 90 2 Kidney damage with mild decrease in GFR 60-89 3 Moderate decrease in GFR 30-59 4 Severe decrease in GFR 15-29 5 Kidney failure <15 (or dialysis) 33 HDL Interpretation: Undesirable: High Risk: Less than 40 mg/dL Desirable: Low Risk: Greater than 60 mg/dL 34 LDL Interpretation: Low Risk Optimal Level: LDL Less than 100 mg/dL Near or Above Optimal: LDL 100-129 mg/dL Borderline High Risk: LDL 130-159 mg/dL High Risk: LDL 160-189 mg/dL Very High Risk: LDL Greater than 189 mg/dL 35 FASTING 36 Because ethnic data is not always readily available, this report includes an eGFR for both -Americans and non- Americans. The National Kidney Disease Education Program (NKDEP) does not endorse the use of the MDRD equation for patients that are not between the ages of 18 and 70, are , have extremes of body size, muscle mass, or nutritional status, or are non- or non-. According to the National Kidney Foundation, irrespective of diagnosis, the stage of the disease is based on the level of kidney function: Stage Description GFR(mL/min/1.73 m(2)) 1 Kidney damage with normal or decreased GFR 90 2 Kidney damage with mild decrease in GFR 60-89 3 Moderate decrease in GFR 30-59 4 Severe decrease in GFR 15-29 5 Kidney failure <15 (or dialysis) 37 HDL Interpretation: Undesirable: High Risk: Less than 40 mg/dL Desirable: Low Risk: Greater than 60 mg/dL 38 LDL Interpretation: Low Risk Optimal Level: LDL Less than 100 mg/dL Near or Above Optimal: LDL 100-129 mg/dL Borderline High Risk: LDL 130-159 mg/dL High Risk: LDL 160-189 mg/dL Very High Risk: LDL Greater than 189 mg/dL 39 HDL Interpretation: Undesirable: High Risk: Less than 40 mg/dL Desirable: Low Risk: Greater than 60 mg/dL 40 LDL Interpretation: Low Risk Optimal Level: LDL Less than 100 mg/dL Near or Above Optimal: LDL 100-129 mg/dL Borderline High Risk: LDL 130-159 mg/dL High Risk: LDL 160-189 mg/dL Very High Risk: LDL Greater than 189 mg/dL 41 RUN DATE: 05/02/13 [facility] LAB LIVE PAGE 1 RUN TIME: [address] [place] [address] Specimen Inquiry Name: REJI COATS : [address]: Nolan Thomas MD Acct: [id number] Unit: [id number] AGE: 77 Location: ENDO Re05/01/13 SEX: M Status: REG REF SPEC: [id number] MARYBETH: 05/01/13- SUBM DR: Nolan Thomas MD REQ: [id number] RECD: 05/01/13 STATUS: SONY ROBB DR: Chau Soto MD _ ORDERED: [facility], LEVEL IV FINAL DIAGNOSIS Esophagus, at 34 cm., biopsy: Ulcerated, markedly inflamed columnar mucosa with focal intestinal metaplasia, indefinite for dysplasia (see comment). COMMENTS: Where surface epithelium is intact, the exuberant acute and chronic inflammatory infiltrate precludes accurate assessment for dysplasia. GMS staining, performed with appropriate controls, is negative for fungal organisms. Dr. Delgadillo has reviewed this case in intradepartmental consultation and concurs with the diagnosis. CLINICAL HISTORY Follow-up for Lim's esophagus; anemia, erosive esophagitis POST-OPERATIVE DIAGNOSIS Hiatal hernia, Lim's; small esohpagus GROSS DESCRIPTION The specimen is received in formalin labeled Reji RyanChristelle Coats, Esophageal Biopsy at 34 cm., and consists of multiple liu-white fragments of tissue that in aggregate measure 0.6 x 0.4 x 0.3 cm. Submitted entirely, one cassette. CONTINUED ON NEXT PAGE * ML=Testing performed at Main Lab DEPARTMENT OF PATHOLOGY, [facility] [email or web address] [place], [place] [address] Baltazar Delgadillo M.D. Director [facility] Permit #[id number] RUN DATE: 05/02/13 [facility] LAB LIVE PAGE 2 RUN TIME: [address] [place] [address] Specimen Inquiry Patient: REJI COATS [id number] (Continued) GROSS DESCRIPTION (Continued) Signed (signature on file) Puja Villavicencio MD 1711 END OF REPORT * ML=Testing performed at Main Lab DEPARTMENT OF PATHOLOGY, [address] [place] [address] Baltazar Delgadillo M.D. Director [facility] Permit #[id number] 42 Because ethnic data is not always readily available, this report includes an eGFR for both -Americans and non- Americans. The National Kidney Disease Education Program (NKDEP) does not endorse the use of the MDRD equation for patients that are not between the ages of 18 and 70, are , have extremes of body size, muscle mass, or nutritional status, or are non- or non-. According to the National Kidney Foundation, irrespective of diagnosis, the stage of the disease is based on the level of kidney function: Stage Description GFR(mL/min/1.73 m(2)) 1 Kidney damage with normal or decreased GFR 90 2 Kidney damage with mild decrease in GFR 60-89 3 Moderate decrease in GFR 30-59 4 Severe decrease in GFR 15-29 5 Kidney failure <15 (or dialysis) 43 -- REFERENCE VALUE -- 25-HYDROXY D TOTAL (D2+D3) Optimum levels in the normal population are 25-80 Test Performed by: [place] [address] Real Estate Agent: Chris Lundberg III, M.D. 44 HDL Interpretation: Undesirable: High Risk: Less than 40 MG/DL Desirable: Low Risk: Greater than 60 MG/DL 45 LDL Interpretation: Low Risk Optimal Level: LDL Less than 100 MG/DL Near or Above Optimal: LDL 100-129 MG/DL Borderline High Risk: LDL 130-159 MG/DL High Risk: LDL 160-189 MG/DL Very High Risk: LDL Greater than 189 MG/DL 46 ---- RUN DATE: 03/09/12 [facility] NMI LIVE PAGE 1 RUN TIME: 1225 Specimen Inquiry RUN USER: INTERFACE -- [id number] Status: REG REF Re03/07/12 Age/Sex: 76/M Unit#: [id number] Location: [facility]. : 34 -- Specimen: [id number] Spec Date:03/07/12- Dr: Nolan Thomas MD Spec Type: SURGICAL P Received:03/07/12-1053 Copies to: Chau boykin MD SPECIMEN 1) ESOPHAGUS BIOPSIES AT 37 CM. 2) ESOPHAGUS BIOPSIES AT 35 CM. HISTORY POST-OP DIAGNOSIS: Hiatal hernia; erosive gastroesophageal reflux disease ; probable Lim's CLINICAL INFORMATION: Lim's follow-up GROSS DESCRIPTION 1) The specimen is received in formalin labelled Reji Coats, Esophagus Biopsy at 37 cm., and consists of multiple liu-del real soft tissue fragments measuring 0.5 x 0.3 x 0.1 cm. Submitted entirely, one cassette. 2) The specimen is received in formalin labelled Reji Coats, Esophagus Biopsy at 35 cm., and consists of two liu-del real soft tissue fragments measuring 0.6 x 0.3 x 0.2 cm. Submitted entirely, one cassette. DIAGNOSIS 1) Esophagus, 37 cm., biopsy: A. Erosive esophagitis with marked reactive glandular atypia. B. Moderate to severe reflux esophagitis. 2) Esophagus, 35 cm., biopsy: Gastric cardia type mucosa with severe acute inflammation and marked reactive glandular atypia. COMMENT The degree of atypia in both biopsies is severe and though likely related to the inflammatory process, an underlying dysplastic process cannot be ruled out based on these biopsies. Close clinical surveillance after treatment of the acute process is warranted. A GMS stain with appropriate controls was performed on part 1 for fungal organisms and is negative. -- DEPARTMENT OF PATHOLOGY, [address] [place] [address] [facility] Permit #[id number] Silas Steven M.D. [employer] Manager Dir keegan -- -- RUN DATE: 03/09/12 [facility] NMI LIVE PAGE 2 RUN TIME: 1225 Specimen Inquiry RUN USER: INTERFACE -- Name: REJI COATS Status: REG REF Re03/07/12 Age/Sex: 76/M Unit#: [id number] Location: [facility] : 34 -- -- CONTINUED -- Signed Electronically by: BALTAZAR DELGADILLO MD 03/09/12 1224 -- -- DEPARTMENT OF PATHOLOGY, [address] [place] [address] [facility] Permit #[id number] Silas Steven M.D. Depot Manager Dir allison -- 47 CHOLESTEROL INTERPRETATION: Desirable: Less than 200 MG/DL Borderline-High Risk: 200-239 MG/DL High-Risk: 240 MG/DL and over 48 HDL INTERPRETATION: Undesirable: High Risk: Less than 40 MG/DL Desirable: Low Risk: Greater than 60 MG/DL 49 LDL INTERPRETATION: Low Risk Optimal Level: LDL Less than 100 MG/DL Near or Above Optimal: LDL 100-129 MG/DL Borderline High Risk: LDL 130-159 MG/DL High Risk: LDL 160-189 MG/DL Very High Risk: LDL Greater than 189 MG/DL 50 Anion gap measurement may be of limited value in the presence of any alkalosis, especially in a combined acid base disorder. . 51 A metabolite of Naproxen, O-desmethylnaproxen, has been shown to interfere with the Jendrassik-Marlen method for measuring total bilirubin. Samples from patients who have taken Naproxen have shown spurious elevation in total bilirubin levels. 52 Because ethnic data is not always readily available, this report includes an eGFR for both -Americans and non- Americans. The National Kidney Disease Education Program (NKDEP) does not endorse the use of the MDRD equation for patients that are not between the ages of 18 and 70, are , have extremes of body size, muscle mass, or nutritional status, or are non- or non-. According to the National Kidney Foundation, irrespective of diagnosis, the stage of the disease is based on the level of kidney function: Stage Description GFR(mL/min/1.73 m(2)) 1 Kidney damage with normal or decreased GFR 90 2 Kidney damage with mild decrease in GFR 60-89 3 Moderate decrease in GFR 30-59 4 Severe decrease in GFR 15-29 5 Kidney failure <15 (or dialysis) 53 CHOLESTEROL INTERPRETATION: Desirable: Less than 200 MG/DL Borderline-High Risk: 200-239 MG/DL High-Risk: 240 MG/DL and over 54 HDL INTERPRETATION: Undesirable: High Risk: Less than 40 MG/DL Desirable: Low Risk: Greater than 60 MG/DL 55 LDL INTERPRETATION: Low Risk Optimal Level: LDL Less than 100 MG/DL Near or Above Optimal: LDL 100-129 MG/DL Borderline High Risk: LDL 130-159 MG/DL High Risk: LDL 160-189 MG/DL Very High Risk: LDL Greater than 189 MG/DL 56 Anion gap measurement may be of limited value in the presence of any alkalosis, especially in a combined acid base disorder. . 57 Because ethnic data is not always readily available, this report includes an eGFR for both -Americans and non- Americans. The National Kidney Disease Education Program (NKDEP) does not endorse the use of the MDRD equation for patients that are not between the ages of 18 and 70, are , have extremes of body size, muscle mass, or nutritional status, or are non- or non-. According to the National Kidney Foundation, irrespective of diagnosis, the stage of the disease is based on the level of kidney function: Stage Description GFR(mL/min/1.73 m(2)) 1 Kidney damage with normal or decreased GFR 90 2 Kidney damage with mild decrease in GFR 60-89 3 Moderate decrease in GFR 30-59 4 Severe decrease in GFR 15-29 5 Kidney failure <15 (or dialysis) 58 * SERUM LEVELS OF PSA MEASURED USING THE Rapportive ACCESS HYBRITECH IMMUNOASSAY SHOULD NOT BE INTERPRETED ABSOLUTE EVIDENCE OF THE PRESENCE OR ABSENCE OF DISEASE. THE PSA VALUE SHOULD BE USED IN CONJUNCTION WITH OTHER PERTINENT CLINICAL DIAGNOSTIC PROCEDURES. 59 CHOLESTEROL INTERPRETATION: Desirable: Less than 200 MG/DL Borderline-High Risk: 200-239 MG/DL High-Risk: 240 MG/DL and over 60 HDL INTERPRETATION: Undesirable: High Risk: Less than 40 MG/DL Desirable: Low Risk: Greater than 60 MG/DL 61 LDL INTERPRETATION: Low Risk Optimal Level: LDL Less than 100 MG/DL Near or Above Optimal: LDL 100-129 MG/DL Borderline High Risk: LDL 130-159 MG/DL High Risk: LDL 160-189 MG/DL Very High Risk: LDL Greater than 189 MG/DL 62 Anion gap measurement may be of limited value in the presence of any alkalosis, especially in a combined acid base disorder. . 63 Note change in reference range as of 06/06/08. The change was based on recommendations from the [place] [employer]. 64 A metabolite of Naproxen, O-desmethylnaproxen, has been shown to interfere with the Jendrassik-Marlen method for measuring total bilirubin. Samples from patients who have taken Naproxen have shown spurious elevation in total bilirubin levels. 65 Because ethnic data is not always readily available, this report includes an eGFR for both -Americans and non- Americans. The National Kidney Disease Education Program (NKDEP) does not endorse the use of the MDRD equation for patients that are not between the ages of 18 and 70, are , have extremes of body size, muscle mass, or nutritional status, or are non- or non-. According to the National Kidney Foundation, irrespective of diagnosis, the stage of the disease is based on the level of kidney function: Stage Description GFR(mL/min/1.73 m(2)) 1 Kidney damage with normal or decreased GFR 90 2 Kidney damage with mild decrease in GFR 60-89 3 Moderate decrease in GFR 30-59 4 Severe decrease in GFR 15-29 5 Kidney failure <15 (or dialysis) 66 Anion gap measurement may be of limited value in the presence of any alkalosis, especially in a combined acid base disorder. . 67 Note change in reference range as of 06/06/08. The change was based on recommendations from the [place] [employer]. 68 Please note change in reference range effective 08 . 69 Because ethnic data is not always readily available, this report includes an eGFR for both -Americans and non- Americans. The National Kidney Disease Education Program (NKDEP) does not endorse the use of the MDRD equation for patients that are not between the ages of 18 and 70, are , have extremes of body size, muscle mass, or nutritional status, or are non- or non-. According to the National Kidney Foundation, irrespective of diagnosis, the stage of the disease is based on the level of kidney function: Stage Description GFR(mL/min/1.73 m(2)) 1 Kidney damage with normal or decreased GFR 90 2 Kidney damage with mild decrease in GFR 60-89 3 Moderate decrease in GFR 30-59 4 Severe decrease in GFR 15-29 5 Kidney failure <15 (or dialysis) 70 CHOLESTEROL INTERPRETATION: Desirable: Less than 200 MG/DL Borderline-High Risk: 200-239 MG/DL High-Risk: 240 MG/DL and over 71 HDL INTERPRETATION: Undesirable: High Risk: Less than 40 MG/DL Desirable: Low Risk: Greater than 60 MG/DL 72 LDL INTERPRETATION: Low Risk Optimal Level: LDL Less than 100 MG/DL Near or Above Optimal: LDL 100-129 MG/DL Borderline High Risk: LDL 130-159 MG/DL High Risk: LDL 160-189 MG/DL Very High Risk: LDL Greater than 189 MG/DL 73 ---- RUN DATE: 03/25/10 [facility] NMI LIVE PAGE 1 RUN TIME: 144 Specimen Inquiry RUN USER: INTERFACE -- Name: REJI COATS Status: REG REF Re03/24/10 Age/Sex: 74/M Unit#: [id number] Location: [facility] : 34 -- Specimen: [id number] SOUT Spec Date: 03/24/[address]: Nolan coleman MD Spec Type: SURGICAL P Received: 03/24/10-1006 Copies to: Chau boykin MD SPECIMEN BIOPSY DISTAL ESOPHAGUS AT 35 CM. HISTORY POST-OP DIAGNOSIS: Small hiatal hernia; Lim's CLINICAL INFORMATION: Dysphagia, Lim's; avoiding no foods GROSS DESCRIPTION The specimen is received in formalin labelled Reji Coats, Biopsy Distal Esophagus, and consists of multiple fragments of liu-white tissue measuring in aggregate 0.5 x 0.5 x 0.3 cm. Submitted entirely, one cassette. DIAGNOSIS Distal esophagus at 35 cm., biopsy: A. Squamous mucosa with evidence of severe reflux disease. B. Cardia type mucosa with marked reactive changes and eosinophilic infiltration of the lamina propria, focally extending into the glands. C. Intestinal metaplasia is not seen. Signed Electronically by: FLAVIO BELLE 03/25/10 1442 -- -- DEPARTMENT OF PATHOLOGY, [address] [place] [address] [facility] Permit #[id number] Baltazar Delgadillo M.D. Director Flavio Belle M.D. Depot Manager Dir keegan -- 74 FASTING 75 Anion gap measurement may be of limited value in the presence of any alkalosis, especially in a combined acid base disorder. . 76 Note change in reference range as of 06/06/08. The change was based on recommendations from the [place] [employer]. 77 Please note change in reference range effective 08 . 78 A metabolite of Naproxen, O-desmethylnaproxen, has been shown to interfere with the Jendrassik-Tat Momoli method for measuring total bilirubin. Samples from patients who have taken Naproxen have shown spurious elevation in total bilirubin levels. 79 Because ethnic data is not always readily available, this report includes an eGFR for both -Americans and non- Americans. The National Kidney Disease Education Program (NKDEP) does not endorse the use of the MDRD equation for patients that are not between the ages of 18 and 70, are , have extremes of body size, muscle mass, or nutritional status, or are non- or non-. According to the National Kidney Foundation, irrespective of diagnosis, the stage of the disease is based on the level of kidney function: Stage Description GFR(mL/min/1.73 m(2)) 1 Kidney damage with normal or decreased GFR 90 2 Kidney damage with mild decrease in GFR 60-89 3 Moderate decrease in GFR 30-59 4 Severe decrease in GFR 15-29 5 Kidney failure <15 (or dialysis) 80 CHOLESTEROL INTERPRETATION: Desirable: Less than 200 MG/DL Borderline-High Risk: 200-239 MG/DL High-Risk: 240 MG/DL and over 81 HDL INTERPRETATION: Undesirable: High Risk: Less than 40 MG/DL Desirable: Low Risk: Greater than 60 MG/DL 82 LDL INTERPRETATION: Low Risk Optimal Level: LDL Less than 100 MG/DL Near or Above Optimal: LDL 100-129 MG/DL Borderline High Risk: LDL 130-159 MG/DL High Risk: LDL 160-189 MG/DL Very High Risk: LDL Greater than 189 MG/DL 83 Lymphopenia % 84 CHOLESTEROL INTERPRETATION: Desirable: Less than 200 MG/DL Borderline-High Risk: 200-239 MG/DL High-Risk: 240 MG/DL and over 85 HDL INTERPRETATION: Undesirable: High Risk: Less than 40 MG/DL Desirable: Low Risk: Greater than 60 MG/DL 86 LDL INTERPRETATION: Low Risk Optimal Level: LDL Less than 100 MG/DL Near or Above Optimal: LDL 100-129 MG/DL Borderline High Risk: LDL 130-159 MG/DL High Risk: LDL 160-189 MG/DL Very High Risk: LDL Greater than 189 MG/DL 87 Anion gap measurement may be of limited value in the presence of any alkalosis, especially in a combined acid base disorder. . 88 Please note change in reference range effective 08 . 89 Anion gap measurement may be of limited value in the presence of any alkalosis, especially in a combined acid base disorder. . 90 CHOLESTEROL INTERPRETATION: Desirable: Less than 200 MG/DL Borderline-High Risk: 200-239 MG/DL High-Risk: 240 MG/DL and over 91 HDL INTERPRETATION: Undesirable: High Risk: Less than 40 MG/DL Desirable: Low Risk: Greater than 60 MG/DL 92 LDL INTERPRETATION: Low Risk Optimal Level: LDL Less than 100 MG/DL Near or Above Optimal: LDL 100-129 MG/DL Borderline High Risk: LDL 130-159 MG/DL High Risk: LDL 160-189 MG/DL Very High Risk: LDL Greater than 189 MG/DL [address] SPENCE [phone] Anion gap measurement may be of limited value in the presence of any alkalosis, especially in a combined acid base disorder. . 95 Classification: Desirable . 96 CALCULATED LDL APPROXIMATES THE VALUE OF A DIRECT LDL MEASUREMENT. Classification: Borderline High . 97 FASTING 98 Anion gap measurement may be of limited value in the presence of any alkalosis, especially in a combined acid base disorder. . 99 REFERENCE RANGE FOR HOMOCYSTEINE (UMOL/L): AGE MALES FEMALES 0 - 19 Y 4.3 - 9.9 3.3 - 7.2 20 - 39 Y 4.3 - 11.4 3.3 - 10.4 40 - 59 Y 4.3 - 12.9 3.3 - 10.2 > 59 Y 4.3 - 15.3 3.3 - 11.6 THE ESTABLISHED UPPER REFERENCE RANGE CUT-OFF (HIGH FLAG) LISTED IN THIS REPORT IS GENDER SPECIFIC AND BASED ON THE 95TH PERCENTILE FOR A HEALTHY 20-39 YEAR OLD POPULATION (EXCLUDING WOMEN) WITH AMPLE SERUM FOLATE AND B12 LEVELS, AND NO EVIDENCE OF RENAL DISEASE. EXPECTED RANGES FOR HOMOCYSTEINE VARY BY AGE, GENDER, RACE, NUTRITIONAL STATUS (FOLATE AND B12 LEVELS), RENAL FUNCTION AND ALSO BY HORMONAL STATUS, OR INSULIN RESISTANCE. HIGH VALUES ARE SEEN IN ABOUT HALF OF PATIENTS TESTED FROM OLDER AGE GROUPS. HIGHER SERUM HOMOCYSTEINE LEVELS ARE ASSOCIATED WITH INCREASED RISK OF CORONARY HEART DISEASE. TEST PERFORMED BY: [employer]. [id number] [place] [phone] Classification: Desirable . 101 CALCULATED LDL APPROXIMATES THE VALUE OF A DIRECT LDL MEASUREMENT. Classification: Borderline High . 102 Classification: Borderline High . 103 Classification: Low . 104 CALCULATED LDL APPROXIMATES THE VALUE OF A DIRECT LDL MEASUREMENT. Classification: Borderline High . 105 Anion gap measurement may be of limited value in the presence of any alkalosis, especially in a combined acid base disorder. . Procedures Date CPT Code Description Status 02/08/2018 90152 EKG Tracing & Interpretation Completed 12/16/2017 08405 EKG Tracing & Interpretation Completed 11/08/2017 84229 Inject/Drain Joint/Bursa Intermediate W/O US Completed 09/12/2017 15457 ECHO Transthorasic Realtime 2D W Doppler & Color Flow Completed Hosp 06/07/2017 96380 EKG Tracing & Interpretation Completed 07/22/2016 58663 ECHO Stress Test Incl Perf Contiuous ekg Monitoring Completed W/Phys Superv 05/13/2016 02512 EKG Tracing & Interpretation Completed 03/25/2015 32952 EKG Tracing & Interpretation Completed 08/08/2014 63238 EKG Tracing & Interpretation Completed 05/09/2014 67881 ECHO Stress Test Incl Perf Contiuous ekg Monitoring Completed W/Phys Superv 05/09/2014 76710 ECHO Stress Test Incl Perf Contiuous ekg Monitoring Completed W/Phys Superv 04/17/2014 68791 EKG Tracing & Interpretation Completed 02/05/2014 05202 EKG Tracing & Interpretation Completed 08/23/2013 18911 EKG Tracing & Interpretation Completed 03/15/2013 75668 ECHO Transthoracic, Real-Time 2D With Doppler And Color Completed Flow 03/14/2013 16181 ECHO Stress Test Incl Perf Contiuous ekg Monitoring Completed W/Phys Superv 03/14/2013 01957 ECHO Stress Test Incl Perf Contiuous ekg Monitoring Completed W/Phys Superv 02/15/2013 56564 EKG Tracing & Interpretation Completed 03/08/2012 81154 ECHO Stress Test Incl Perf Contiuous ekg Monitoring Completed W/Phys Superv 02/10/2012 01401 EKG Tracing & Interpretation Completed 02/11/2011 97444 EKG Tracing & Interpretation Completed 04/22/2010 85144 ECHO Stress Test Incl Perf Contiuous ekg Monitoring Completed W/Phys Superv 09/05/2009 21513 EKG Tracing & Interpretation Completed 07/17/2008 Colonoscopy Completed 05/23/2008 30967 EKG Tracing & Interpretation Completed 02/26/2008 25152 Stress Test Completed 02/26/2008 72982 Stress Test Completed 02/26/2008 08317 ECHO/Stress Completed 02/26/2008 24772 Stress Test Completed 02/26/2008 28466 ECHO/Stress Completed 08/29/2007 88099 EKG Tracing & Interpretation Completed 08/29/2007 22772 EKG Tracing & Interpretation Completed 02/24/2007 32458 EKG Tracing & Interpretation Completed 09/29/2006 05097 EKG Tracing & Interpretation Completed 09/29/2006 67617 EKG Tracing & Interpretation Completed 06/28/2006 86893 ECHO/Stress Completed 06/28/2006 90783 ECHO/Stress Completed 06/28/2006 46076 Stress Test Completed 05/19/2006 08027 EKG Tracing & Interpretation Completed 05/19/2006 11216 EKG Tracing & Interpretation Completed 04/02/2005 83971 ECHO/Stress Completed 04/02/2005 33296 Stress Test Completed 03/04/2005 99076 EKG Tracing & Interpretation Completed 03/06/2004 20228 EKG Tracing & Interpretation Completed 02/04/2003 20535 ECHO/Stress Completed 02/04/2003 13126 Stress Test Completed 01/10/2003 51825 EKG Tracing & Interpretation Completed Encounters Type Date Location Provider CPT E/M Dx Office Visit 02/08/2018 11:20a [facility] Cesar Christianson M.D. 18369 I10 G46.3 E78.5 I65.23 Office Visit 12/29/2017 9:00a [facility] Leigha Shepherd N.P. 11921 I10 G46.3 E78.5 I25.2 Office Visit 12/16/2017 2:00p [facility] Cesar Christianson M.D. 42824 I10 G46.3 E78.5 I25.2 Office Visit 11/08/2017 1:15p [facility] [place] [address] M19.031 C.M.A. M25.531 Office Visit 09/21/2017 11:50a [facility] [place] [address] I63[address] I89.0 Office Visit 09/15/2017 1:30p [facility] [place] [address] I63.[address] E78.5 R05 Office Visit 09/12/2017 11:01a [facility] [address] I63.9 G46.3 E78.5 I10 Z86.73 Office Visit 09/12/2017 1:06p [facility], Irene Watson, 51226 I63.9 Hospitalists M.DChristelle C15.9 I10 Office Visit 09/11/2017 11:00a [facility] [address] I63.9 G46.3 E78.5 I10 Z86.73 Office Visit 09/11/2017 1:02p [facility], Irene Walter, 68345 I63.9 Hospitalists M.DChristelle C15.9 I10 I65.21 Office Visit 06/30/2017 9:10a [facility] Chau Soto, 29512 Z00.01 Medicine - [place] Logan Rosen,FACP C15.5 I25.10 I65.23 J45.20 Office Visit 06/07/2017 3:00p [facility] Cesar Christianson M.D. 91389 I10 I25.10 E78.01 C15.5 E78.5 R94.31 Office Visit 05/27/2017 10:20a [facility] Chau Soto, 37031 J45.31 - [place] Logan Rosen,FACP Office Visit 08/30/2016 2:00p [facility] ROXANNA Manuel 29102 I10 I25.10 Office Visit 08/12/2016 9:00a [facility] ROXANNA Manuel 62860 I10 I25.10 Office Visit 08/02/2016 4:15p [facility] [place] [address] I10 Office Visit 07/22/2016 9:15a [facility] Cesar Christianson, 55766 I10 Rolling Attendant Silas I25.10 E78.01 E78.00 E78.0 Office Visit 07/08/2016 9:00a [facility] ROXANNA Manuel 85504 I10 K22.711 I25.10 Office Visit 06/24/2016 9:10a [facility] Chau Soto, 57549 Z00.00 Medicine - [place] Logan Rosen,FACP I65.23 I10 K22.711 Z23 Office Visit 05/13/2016 10:00a [facility] Cesar Christianson, 28956 K22.711 Noemy Salazar.Steve I10 E78.0 I25.10 Office Visit 03/03/2016 9:30a [facility] ROXANNA Manuel 47501 I10 K22.711 E78.0 I25.10 Office Visit 02/16/2016 9:00a [facility] ROXANNA Manuel 09290 K22.711 I10 E78.0 I25.10 Office Visit 06/19/2015 8:30a [facility] Chau Soto, 25442 V70.0 - [place] M.D.,FACP 433.10 530.85 414.01 493.00 Office Visit 03/25/2015 11:45a [facility] Cesar Christianson, 34238 401.1 Noemy Rosen 414.01 433.10 272.0 794.31 Office Visit 08/08/2014 11:20a [facility] Cesar Christianson, 74439 433.10 M.D. 414.01 401.1 794.31 Office Visit 05/16/2014 9:00a [facility] ROXANNA Manuel 44101YGU 414.01 401.1 272.0 Office Visit 05/09/2014 1:30p [facility] Cesar Christianson M.D. 10266 401.1 414.01 433.10 Office Visit 04/25/2014 10:30a [facility] Chau Soto, [address] V70[address] - [address] Rosen,FACP 414.01 530.85 Office Visit 04/17/2014 3:40p [facility] Cesar Christianson M.D. 17615 401.1 414.01 272.0 Office Visit 04/04/2014 9:00a [facility] ROXANNA Manuel 02974 401.1 433.10 414.01 272.0 Office Visit 02/05/2014 3:00p [facility] Cesar Christianson M.D. 37871 401.1 272.0 414.01 433.10 Office Visit 08/29/2013 1:40p [facility] Rosaline Barraza D.O. 72973 794.30 401.1 272.0 435.9 Office Visit 08/23/2013 2:20p [facility] Cesar Christianson M.D. 50414 272.0 414.01 433.10 794.31 Office Visit 08/09/2013 10:10a [facility] Chau Soto, [address] 414[address]01 - [address] Rosen,FACP 272.0 Office Visit 04/17/2013 9:10a [facility] Chau Soto, [address] V70.0 - [address] Rosen,FACP 414.01 433.10 530.85 Office Visit 03/14/2013 3:30p [facility] Cesar Christianson M.D. 73162 272.0 401.1 780.79 414.01 Office Visit 02/15/2013 8:40a [facility] Cesar Christianson M.D. 65629 401.1 272.0 780.79 414.01 Office Visit 02/07/2013 4:00p [facility] Chau Soto, [address] - [address] Rosen,FACP 401.1 414.01 Office Visit 09/26/2012 3:30p [facility] Juana David, N.P. 04708 472.0 - [place] V04.89 401.1 Office Visit 05/18/2012 8:00a [facility] Juana David, N.P. 29661 V06.1 - [place] 401.1 414.01 272.0 433.10 607.84 V72.84 530.85 366.9 Office Visit 03/03/2012 8:29a [facility] Cesar Christianson 06572 414.01 Silas 405.09 Office Visit 02/10/2012 10:20a [facility] Cesar Christianson, 84292 433.10 M.D. 414.01 401.1 272.0 Office Visit 07/22/2011 10:10a DO Not Use Rolling Attendant AT [facility], 64152 V70.0 [facility],FACP 433.10 414.01 607.84 530.85 Office Visit 02/11/2011 10:00a [facility] Cesar Christianson, 11856 414.01 M.D. 401.1 272.0 Office Visit 07/16/2010 10:00a DO Not Use Rolling Attendant AT [facility], 46526 414.01 [facility],FACP 401.1 530.85 493.00 Office Visit 09/05/2009 2:00p [facility] Cesar Christianson, 64454 414.01 M.D. 272.0 Office Visit 05/23/2008 9:00a [facility] Cesar Christianson, 85639 414.01 M.D. 272.0 Office Visit 04/23/2008 3:00p DO Not Use [facility] [address] 692.6 [facility] Office Visit 02/05/2008 2:00p DO Not Use Rolling Attendant AT [facility], 65979 401.1 [facility],FACP 600.00 414.01 V76.44 V76.51 Office Visit 08/29/2007 8:40a [facility] Cesar Christianson, 66336 414.01 M.D. 401.1 272.0 Office Visit 02/24/2007 2:40p [facility] Cesar Christianson, 61828 414.01 M.D. 401.1 272.0 Office Visit 09/29/2006 8:40a [facility] Cesar Christianson, 98642 414.01 M.D. 272.0 Office Visit 06/28/2006 3:20p [facility] Cesar Christianson, 90854 414.01 M.D. Office Visit 05/19/2006 3:00p [facility] Cesar Christianson, 38457 414.01 M.D. 272.0 786.50 Office Visit 03/04/2005 3:00p [facility] Cesar FChristelle Christianson, 39654 414.01 M.D. 786.50 401.0 272.0 Office Visit 03/06/2004 2:20p [facility] Cesar Christianson, 97399 414.01 M.D. 272.0 401.0 Plan of Care Future Appointment(s):06/28/2018 1:00 pm - Chau Soto M.D.,FACP at [facility] - [address]04/10/2018 - Chau Soto M.D.,FACPJ45.41 Moderate persistent asthma with (acute) exacerbationComments:Replaced Arnuity inhaler with Anoro inhaler. Take Medrol as directed for 6 days. Have chest X- ray performed.
--- OUTSIDE RECORDS SUMMARY | 2018-04-20 14:31 | XMS REPORT ---
:1935 External Reference #:[id number] Author Organization [employer] Address [address] [facility] [place] [address] Phone [phone] Care Team Providers Name Role Phone Chau Soto MD Primary Care Physician Unavailable Payers Type Date Identification Numbers Payment Provider Subscriber Commercial Policy Number: [id number] [employer] Medicare Reji Coats Group Number: [id number] [id number] PayID: [id number] [place] [address] Problems Date Description Provider Status Onset: 01/23/2016 [...] M.D.,FAC Active Onset: 03/30/2018 Ischemic stroke Chau Soto M.D.,[facility] Active Note: RT arm numb/weakness Onset: 08/29/2013 [...] (GERD) Siblings 4 First Brother due to NM () Second Brother Peripheral Vascular Disease (PVD) [...] Form Strength Qnty SIG Indications Ordering Provider Tejas Nicole 03/02/ Active Aerosol 100mcg/Ac 30uni 1 puff J45.31 Chau 2018 t ts inhaled Steve Soto, every day M.D.,FACP Plavix 09/12/ Active Tablets 75mg 90tab 1 by mouth Chau 2017 s every day Steve Soto M.D.,FACP Pantoprazole 01/26/ Active Tablets 40mg 180ta 1 by mouth Chau Sodium 2017 DR alejandra twice a day Steve Soto M.D.,FACP Chlorthalidone [...] s daily at Steve Soto, bedtime M.D.,FACP Acetaminophen / Active Tablets 325mg 2 tablets by Unknown 0000 mouth every 6 hours as needed for pain/fever Guaifenesin-Code / Active Solution 100-10mg/ Take 5 Unknown ine 0000 5ML Milliliters By Mouth Every 6 Hours as Needed, Maximum Daily Dos Asmanex 02/28/ Hx Aerosol 110mcg/In 1unit 1 inhalation J45.31 Chau Twisthaler 30 2018 - h s in evening Steve Soto, Metered Doses 03/02/ M.D.,FACP 2018 Inspra 12/29/ Hx Tablets 25mg 30tab Take 1/2 tab I10 Leigha SChristelle 2018 - s by mouth Foster, 02/08/ daily N.P. 2018 Amoxicillin/Clav 05/27/ Hx Tablets 875-125mg 14tab by mouth J45.31 Maurice -David ulanate 2017 - s twice a day Steve Soto, Potassium 06/03/ M.D.,FACP 2017 Asmanex 05/27/ Hx Aerosol 220mcg/In 1unit 1 inhalation J45.31 Chau Avileshaler 14 2017 - h s every day Steve Soto, Metered Doses 06/30/ for 2 wks M.D.,FACP 2017 Esomeprazole 01/20/ Hx Capsules 40mg 60cap 1 by mouth Chau Magnesium 2017 - DR kruse twice a day Steve Soto, 01/26/ M.D.,FACP 2017 Inspra 08/12/ Hx Tablets 25mg 30tab 1/2 by mouth I10 Cesar 2015 Mckayla s every day F. 08/25/ (on hold Sammy, 201508/24/16) M.DChristelle Spironolactone 07/08/ Hx Tablets 25mg 15tab 1/2 by mouth I1Quynh Guerrero 2015 Mckayla kruse every day F. 08/02 pt Sammy, 2015 holding at M.D. present time Amlodipine 06/29/ Hx Tablets 5mg 3tabs 1 by mouth Cesar Besamalia 2015 - day before . 08/12/ and day of Sammy, 2015 stress test M.D. (instead of cartia) Omeprazole 06/24/ Hx Capsules 40mg 180ca 1 by mouth [place] - DR dinero every day Pachikara 01/20/ , M.D. 2017 Valsartan 05/16/ Hx Tablets 80mg 180ta take 3 tabs I1Quynh alejandra by mouth F. 06/24/ daily Sammy, 2015 (increased M.D. 06/15/16) Diovan 04/25/ Hx Tablets 80mg 30tab 1 by mouth Cesar 2013 Mckayla s every day . 08/08/ Sammy 2013 M.D. Diovan 04/17/ Hx Tablets 80mg 100ta 1 by mouth 401.1 Cesar alejandra every day . 04/25/ Sammy 2013 M.D. Lisinopril 04/04/ Hx Tablets 20mg 30tab 1 by mouth 401.1 Cesar Block s once a day . 04/04/ Sammy 2013 M.D. Lisinopril 04/04/ Hx Tablets 10mg 60tab take 1 401.1 Cesar 2013 - s tablet twice F. 04/17/ a day [email or web address] Silas Livalo 08/09/ Hx Tablets 1mg 90tab po qpm 272.0 Chau 2012 Mckayla Soto, 02/05/ Silas,FACP 2013 Welchol 04/17/ Hx Tablets 625mg 180ta 3 po bid 414.01 Chau 2012 Mckayla Soto, MShaka,FACP 2012 Amlodipine 02/15/ Hx Tablets 5mg 4tabs 1 po qd day Cesar Besylate 2012 - before and . 03/14/ day of Sammy2012 stress test. M.D. Diltiazem HCL ER 02/07/ Hx Caps ER 180mg 90cap 1 PO qd Chau Coated Beads 2012 - 24HR aixa Soto, Silas,FACP 2014 Afrin Nasal 09/26/ Hx Solution 0.05% 15ml 2-3 sprays 472.0 Juana Max 2011 - in each Frankie, 02/07/ nostril N.P. 2012 q10-12h prn; max 3 days Astepro 09/26/ Hx Solution 0.15% 30ml 1-2 472.0 Juana 2011 - sprays/nostr Frankie, 02/07/ il bid N.P. 2012 Amlodipine 03/03/ Hx Tablets 2.5mg 8tabs 2 po qd the Cesar Besylate 2011 - day before F. 02/07/ and the day Sammy2012 of the test M.D. Amlodipine 02/09/ Hx Tablets 2.5mg 2tabs 1 po qdn day Cesar Besylate 2011 - before and . 03/03/ day of Sammy, 2011 stress. M.D. Aspirin 07/22/ Hx Tablets 81mg 100ta 1 po qd Chau 2010 Mckayla Soto, Silas,FACP 2016 Cialis 07/22/ Hx Tablets 10mg 10tab qd prn Chau 2010 Mckayla Soto, M.D.,FACP 2011 Albuterol 05/19/ Hx Aerosol 90mcg/Act QS 2 puffs po 414.01 Chau 2010 - qid prn Steve Soto, 04/17/ Silas,FACP 2012 Niaspan 07/16/ Hx Tablets 500mg 90tab 1 by mouth Cesar 2009 - ER s every night F. 06/24/ at bedtime Sammy, 2015 M.DChristelle Niaspan 05/11/ Hx Tablets 500mg 180ta 2 tab qpm Cesar 2009 - ER bs F. 07/16/ Sammy, 2009 M.DChristelle Amlodipine 03/25/ Hx Tablets 5mg 3tabs 1 po qd day Cesar Besylate 2009 - before and . 07/16/ day of Sammy 2009 stress test MShaka Crestor 05/23/ Hx Tablets 5mg 30tab 1 po qd on Cesar 2007 - s tuesday and . 09/02/ Sammy 2007 Silas Medrol Dosepak 04/23/ Hx Tablets 4mg 1Pack take as 692.6 Chau 2008 - directed Steve Soto, 05/23/ Silas,FACP 2007 Zetia 02/25/ Hx Tablets 10mg 90tab 1 po qd Cesar 2007 - s . 02/07/ Sammy, 2012 Silas Omeprazole 02/04/ Hx Capsules 20mg 30cap 1 qpm Pt Chau 2008 - DR kruse states he is Steve Soto, 06/24/ taking 40 MG MShaka,FACP 2015 Aspir-81 02/04/ Hx Tablets 81mg 1 PO qd Chau 2008 - DR Steve Soto, 07/22/ Silas,FACP 2010 Protonix 08/29/ Hx Tablets 20mg 30tab 1 PO qd Cesar 2006 - DR aixa Tyson 02/04/ Sammy 2007 Silas Multi-Day /14/ Hx Tablets 1 PO qd [facility] Vitamins 2005 - . 08/29/ Sammy, 2006 MShaka Vitamin B12 14/ Hx Capsules 1000mg 1 tablet po Cesar 2005 - qd . 08/29/ Sammy 2006 Silas Iron 14/ Hx Tablets 65mg 1 PO qd Cesar 2005 - F. 08/29/ Mauser, 2007 Silas Tricor 06/28/ Hx Tablets 145mg 90tab 1 po qd Cesar 2005 - s F. 05/23/ user, 2007 M.Steve Questran 05/19/ Hx Powder 4GM/9 GM 180un 1 bid Cesar 2005 - its F. 06/28/ user, 2005 M.Munir. Niaspan 05/18/ Hx Tablets 500mg 90tab 1 tablet by Cesar 2005 - ER s mouth qd F. user, 2009 M.D. Niaspan Extended 03/04/ Hx Tablets 500mg 180ta 1 po bid Cesar Release 2004 - bs F. user, 2005 MShaka Aspirin Enteric 03/04/ Hx Tablets 81mg qd Cesar Coated 2004 - F. user, 2006 MShaka Albuterol 03/06/ Hx Aerosol 90mcg/Dos 1unit prn Chau 2004 filemon Soto, 05/19/ Silas,FACP 2011 Niaspan Extended 03/03/ Hx Tablets 1000mg 30tab 1 po bid Cesar Release 2003 - s . 03/04/ user, 2004 MJosé. Niaspan Extended 02/02/ Hx Tablets 500mg 180ta 2 po qd Cesar Release 2003 - bs F. user, 2003 M.D. Plavix 02/02/ Hx Tablets 75mg 90tab 1 po qd Cesar 2003 - s F. user, 2006 MJosé. Diltiazem CD 02/02/ Caps ER 120mg 90cap 1 po qd Cesar 2003 - 24HR s F. 02/07/ Mauser, 2012 M.D. Nitrodisc 02/02/ Hx Patches 0.4mg/El 90uni on in am off Cesar 2003 - r ts in pm F. 03/04/ user, 2004 MChristelleD. Zetia 03/26/ Hx 10 90uni qd Cesar 2002 - ts F. 05/19/ user, 2005 M.D. Omeprazole / Hx Capsules 40mg 90cap 1 po qd Unknown 0000 - DR s 2011 Omeprazole /00/ Hx Capsules 40mg 1 po in am Unknown 0000 - DR 2015 Lisinopril 00/00/ Hx Tablets 5mg 90tab 1 by mouth Unknown 0000 - s every day 2013 Lisinopril /00/ Hx Tablets 5mg 90tab 2 by mouth Cesar 0000 - s every day . 04/04/ Sammy2013 Silas Diovan /00/ Hx Tablets 80mg 90tab 1 by mouth Cesar 0000 - s every day F. 05/16/ Sammy2013 Silas Nexium /00/ Hx Capsules 40mg 1 by mouth Unknown 0000 - DR every 2015 Valsartan /00/ Hx Tablets 80mg 270ta 3 tablets by Cesar 0000 - bs mouth every . [email or web address] Silas Esomeprazole /00/ Hx Capsules 40mg 1 tab by Unknown Magnesium 0000 - DR mouth a day 01/10/ at bedtime 2016 Tylenol /00/ Hx Tablets 650mg 2 po qd Unknown 0000 - ER 2017 Medications Administered in Office Medication Date Status Form Strength Qnty SIG Indications Ordering Provider Celestone 3 mg Administered Injection Kali and 3mg Kalyan Du MD Immunizations CPT Code Status Date Vaccine Lot # [id number] Given 06/24/2016 Pneumococcal Conjugate Vaccine 13 Valent For [id number] Intramuscular Use 52775 Given 09/26/2012 Zoster (Zostavax) [id number] 92227 Given 05/18/2012 Tdap - Tetanus/Diptheria/Acellular Pertussis [id number] Given 01/07/2000 Pneumonia Vaccine [id number] Refused 07/16/2010 Influenza Virus 3Yrs & Over Vital Signs Date Vital Result Comment 03/30/2018 Height 66 inches 5'6" Weight 167.00 [...] BELOW 10 Ua Routine 01/25/2017 Ua Specific [place] 1.015 Ua PH 5.0 Ua Color yellow [...] Egfr 62.9 >60 12 Lipid Panel - [facility] 05/12/2016 Creatine Kinase(CK) 106 U/L 10-223 13 [...] RESULT 22 finding BELOW Lipid Panel - [facility] 05/22/2015 Creatine Kinase 105 U/L 10-223 23 [...] mg/dL 27 LDL Cholesterol 172 mg/dL 28 Laboratory test finding 05/22/2015 TSH (Thyroid Stim Horm) 4.08 ?IU/mL 0.34-5.60 29 CBC Auto Diff 05/22/2015 White Blood Count [...] Blood Cells % 0 Basic Metabolic Panel 04/15/2014 Sodium 143 mmol/L [...] Less Than 100 34 Lipid Panel - [facility] 07/31/2013 Creatine Kinase 72 U/L 0-200 35 [...] Pathology 05/01/2013 S RUN DATE: 05/02/ <SEE 41 NOTE> CBC No Diff 02/12/2013 White Blood Count [...] Mean Platelet Volume 7 um3 Low 7.4-10.4 Lipid Profile (Trig/Chol/HDL) 02/12/2013 Triglycerides 60 mg/dL 40-200 Cholesterol 174 mg/dL Less than 200 HDL Cholesterol 44 mg/dL 40-60 42 Cholesterol/HDL Ratio 4.0 Average 1-4.44 LDL Cholesterol 118.0 mg/dL High Less Than 100 43 Laboratory test finding 02/12/2013 Creatine Kinase 112 U/L 0-200 Vitamin D, 25 Hydroxy 02/12/2013 25-Hydroxy Vitamin D2 <4.0 ng/mL 25-Hydroxy Vitamin D3 37 ng/mL 25-Hydroxy Vitamin D Total 37 ng/mL 44 Laboratory test finding 02/12/2013 Vitamin B12 404 pg/mL 180-914 Laboratory test finding 02/12/2013 TSH (Thyroid Stimulating 2.68 miu/mL 0.34-5.60 Horm) Free T4 0.89 ng/mL 0.61-1.24 Basic Metabolic Panel 02/12/2013 Sodium 139 mmol/L 133-145 Potassium 4.1 mmol/L 3.5-5.0 Chloride 108 mmol/L 101-111 Co2 Carbon Dioxide 25.0 mmol/L 22-32 Anion Gap 6.0 mmol/L 2-11 Glucose 104 mg/dL High 70-100 Blood Urea Nitrogen 12 mg/dL 6-24 Creatinine 1.10 mg/dL 0.50-1.40 BUN/Creatinine Ratio 10.9 8-20 Calcium 8.7 mg/dL 8.1-9.9 Egfr Non- 64.7 >60 Egfr 83.3 >60 45 Surgical Pathology 03/07/2012 Surgical Pathology <SEE 46 NOTE> Comp Metabolic 02/22/2012 Sodium 138 mmol/L 135-145 Panel Potassium 4.2 mmol/L 3.5-5.0 Chloride 107 mmol/L 101-111 Co2 (Carbon Dioxide) 26.0 mmol/L 22-32 Anion Gap 5.0 mmol/L 2-11 47 Glucose 105 mg/dL High 70-100 BUN 16 mg/dL 6-24 Creatinine 1.0 mg/dL 0.50-1.40 One Over Creatinine 1.00 BUN/Creatinine Ratio 16.0 8-20 Calcium 8.8 mg/dL 8.1-9.9 Total Protein 6.4 GM/DL 6.2-8.1 Albumin 3.8 GM/DL 3.2-5.2 Globulin 2.6 GM/DL 2-4 Albumin/Globulin Ratio 1.5 1-3 Bilirubin Total 0.9 mg/dL 0.4-1.5 48 Alkaline Phosphatase 66 U/L 39-117 Alt (SGPT) 13 U/L Low 17-63 Ast (Sgot) 23 U/L 12-42 eGFR Non- 72.5 > 60 eGFR 93.2 > 60 49 Lipid Profile (Trig/Chol/HDL) 02/22/2012 Triglyceride 81 mg/dL 40-200 Cholesterol 205 mg/dL High Less Than 200 50 High Density Lipoprotein 49 mg/dL 40-60 51 Cholesterol/HDL Ratio 4.18 AVERAGE 1-4.97 Low Density Lipoprotein 140 mg/dL High Less Than 100 52 Laboratory test finding 02/22/2012 CPK (Creatine Kinase) 190 U/L 0-200 TSH 4.04 MIU/ML 0.34-5.60 Laboratory test finding 07/19/2011 PSA Screening 1.01 NG/ML 0-4 53 Basic Metabolic Panel 07/19/2011 Sodium 139 mmol/L 135-145 Potassium 4.0 mmol/L 3.5-5.0 Chloride 104 mmol/L 101-111 Co2 (Carbon Dioxide) 28.0 mmol/L 22-32 Anion Gap 7.0 mmol/L 2-11 54 Glucose 100 mg/dL 70-100 BUN 13 mg/dL 6-24 Creatinine 1.0 mg/dL 0.50-1.40 One Over Creatinine 1.00 BUN/Creatinine Ratio 13.0 8-20 Calcium 8.9 mg/dL 8.1-9.9 eGFR Non- 72.5 > 60 eGFR 93.2 > 60 55 Lipid Profile (Trig/Chol/HDL) 07/19/2011 Triglyceride 88 mg/dL 40-200 Cholesterol 204 mg/dL High Less Than 200 56 High Density Lipoprotein 51 mg/dL 40-60 57 Cholesterol/HDL Ratio 4.00 AVERAGE 1-4.97 Low Density Lipoprotein 135 mg/dL High Less Than 100 58 Lipid Panel - [facility] 07/10/2010 CPK (Creatine Kinase) 127 U/L 0-200 Comp Metabolic Panel 07/10/2010 Sodium 140 mmol/L 135-145 Potassium 4.3 mmol/L 3.5-5.0 Chloride 107 mmol/L 101-111 Co2 (Carbon Dioxide) 26.0 mmol/L 22-32 Anion Gap 7.0 mmol/L 2-11 59 Glucose 97 mg/dL 70-100 60 BUN 12 mg/dL 6-24 Creatinine 1.10 mg/dL 0.50-1.40 One Over Creatinine 0.90 BUN/Creatinine Ratio 10.9 8-20 Calcium 8.8 mg/dL 8.1-9.9 Total Protein 6.5 GM/DL 6.2-8.1 Albumin 4.0 GM/DL 3.2-5.2 Globulin 2.5 GM/DL 2-4 Albumin/Globulin Ratio 1.6 1-3 Bilirubin Total 1.0 mg/dL 0.4-1.5 61 Alkaline Phosphatase 73 U/L 39-117 Alt (SGPT) 15 U/L Low 17-63 Ast (Sgot) 19 U/L 12-42 eGFR Non- 69.2 > 60 eGFR 83.7 > 60 62 Lipid Profile (Trig/Chol/HDL) 07/10/2010 Triglyceride 80 mg/dL 40-200 Cholesterol 209 mg/dL High Less Than 200 63 High Density Lipoprotein 48 mg/dL 40-60 64 Cholesterol/HDL Ratio 4.35 AVERAGE 1-4.97 Low Density Lipoprotein 145 mg/dL High Less Than 100 65 Lipid Profile (Trig/Chol/HDL) 05/07/2010 Triglyceride 75 mg/dL 40-200 Cholesterol 198 mg/dL Less Than 200 66 High Density Lipoprotein 42 mg/dL 40-60 67 Cholesterol/HDL Ratio 4.71 AVERAGE 1-4.97 Low Density Lipoprotein 141 mg/dL High Less Than 100 68 Laboratory test finding 05/07/2010 CPK (Creatine Kinase) 95 U/L 0-200 Basic Metabolic Panel 05/07/2010 Sodium 137 mmol/L 135-145 Potassium 4.1 mmol/L 3.5-5.0 Chloride 105 mmol/L 101-111 Co2 (Carbon Dioxide) 27.0 mmol/L 22-32 Anion Gap 5.0 mmol/L 2-11 69 Glucose 99 mg/dL 70-100 70 BUN 13 mg/dL 6-24 Creatinine 1.00 mg/dL 0.50-1.40 One Over Creatinine 1.00 BUN/Creatinine Ratio 13.0 8-20 Calcium 8.7 mg/dL 8.1-9.9 71 eGFR Non- 77.4 > 60 eGFR 93.7 > 60 72 Surgical Pathology 03/24/2010 Surgical Pathology <SEE 73 NOTE> CBC With Electronic 09/02/2009 White Blood Count 6.7 CUMM 4.8-10.8 74 Diff Red Cell Count 4.46 CUMM Low 4.6-6.2 [...] 0-0.6 74 Abs Basophils 0 0-0.2 74, 75 Comp Metabolic Panel 09/02/2009 Sodium 140 mmol/L 135-145 74 Potassium 4.3 mmol/L 3.5-5.0 74 Chloride 108 mmol/L 101-111 74 Co2 (Carbon Dioxide) 29.0 mmol/L 22-32 74 Anion Gap 3.0 mmol/L 2-11 74, 76 Glucose 98 mg/dL 70-100 74, 77 BUN 11 mg/dL 6-24 74 Creatinine 1.00 mg/dL 0.50-1.40 74 One Over Creatinine 1.00 74 BUN/Creatinine Ratio 11.0 8-20 74 Calcium 8.8 mg/dL 8.1-9.9 74, 78 Total Protein 6.4 GM/DL 6.2-8.1 74 Albumin 3.7 GM/DL 3.2-5.2 74 Globulin 2.7 GM/DL 2-4 74 Albumin/Globulin Ratio 1.4 1-3 74 Bilirubin Total 0.8 mg/dL 0.4-1.5 74, 79 Alkaline Phosphatase 73 U/L 39-117 74 Alt (SGPT) 13 U/L Low 17-63 74 Ast (Sgot) 15 U/L 12-42 74 eGFR Non- 77.4 > 60 74 eGFR 93.7 > 60 74, 80 Laboratory test finding 09/02/2009 CPK (Creatine Kinase) 103 U/L 0-200 74 Lipid Profile (Trig/Chol/HDL) 09/02/2009 Triglyceride 87 mg/dL 40-200 74 Cholesterol 206 mg/dL High Less Than 200 74, 81 High Density Lipoprotein 48 mg/dL 40-60 74, 82 Cholesterol/HDL Ratio 4.29 AVERAGE 1-4.97 74 Low Density Lipoprotein 141 mg/dL High Less Than 100 74, 83 Lipid Profile (Trig/Chol/HDL) 05/06/2008 Triglyceride [...] 22 U/L 12-42 74 Lipid Panel - [facility] 05/06/2008 CPK (Creatine Kinase) 106 U/L 0-200 74 Laboratory test finding 05/06/2008 PSA Screening 0.65 NG/ML 0-4 Lipid Panel - [facility] 01/31/2008 CPK (Creatine Kinase) 68 U/L 0-200 [...] mg/dL High Less Than 100 93, 96 CBC With Manual Diff 09/04/2007 White Blood [...] Redcell Distribution WDTH 13 % 10.5-15 93 Laboratory test finding 09/04/2007 CPK (Creatine Kinase) 124 U/L 0-200 93 Comp Metabolic Panel 02/09/2007 One Over [...] 8-20 97 Creatinine 1.4 mg/dL 0.5-1.4 97 Lipid Profile 02/09/2007 Cholesterol/HDL Ratio 4.48 AVERAGE 1-4.97 97 (Trig/Chol/HDL) Cholesterol 197 mg/dL Less Than 200 97, 99 Triglyceride 55 mg/dL 40-200 97 High Density Lipoprotein 44 mg/dL 40-60 97 Low Density Lipoprotein 142 mg/dL High Less Than 100 97, 100 Laboratory test finding 02/09/2007 CPK (Creatine Kinase) 88 U/L 0-200 97 TSH 2.53 MIU/ML 0.34-5.60 97 Homocysteine 13.0 UMOL/L High 4.3-11.4 97, 101 Vitamin B12 951 pg/mL High 180-914 97 Lipid Profile 05/10/2006 Cholesterol 206 mg/dL High [...] [address]: Nolan Thomas MD Acct: [id number] Unit: [id number] AGE: 81 Location: ENDO Re02/01/17 SEX: M Status: DEP REF SPEC: [id number] MARYBETH: 02/01/17- SUBM DR: Nolan Thomas MD REQ: [id number] RECD: 02/01/17976 STATUS: SONY ROBB DR: Deric Soto MD [...] performed at Main Lab DEPARTMENT OF PATHOLOGY, [address] [place] [address] Baltazar Delgadillo M.D. Director [facility] # [id number] RUN DATE: 02/03/17 [facility] LAB LIVE PAGE 2 Patient: REJI COATS [id number] (Continued) GROSS DESCRIPTION (Continued) GROSS DESCRIPTION 1. [...] performed at Main Lab DEPARTMENT OF PATHOLOGY, [address] [place] [address] Baltazar Delgadillo M.D. Director [facility] # [id number] 11 Because ethnic data is not always [...] The testing method is an immunoenzymatic assay instrument assembler by [employer] performed on Armen Revstr DXI 600. Do not interpret serum CEA levels as absolute evidence of the presence or the absence of malignant disease. Use serum CEA in conjunction with information from the clinical evaluation of the patient and other diagnostic procedures. 21 SEE RESULT BELOW Name: REJI COATS : [address]: Nolan Thomas MD Acct: [id number] Unit: [id number] AGE: 80 Location: ENDO Re01/20/16 SEX: M Status: REG REF SPEC: [id number] MARYBETH: 01/20/16- SUBM DR: Nolan Thomas MD REQ: [id number] RECD: 01/20/168 STATUS: SONY ROBB DR: Chau Soto MD _ ORDERED: KERATIN STAIN, LEVEL IV [...] performed at Main Lab DEPARTMENT OF PATHOLOGY, [address] [place] [address] Baltazar Delgadillo M.D. Director [facility] # [id number] RUN DATE: 01/22/16 [facility] LAB LIVE PAGE 2 Patient: REJI COATS [id number] (Continued) GROSS DESCRIPTION (Continued) GROSS DESCRIPTION The specimen is received in formalin labeled, Esophagus Biopsies at 35 cm, and consists of a 0.6 x 0.5 x 0.2 cm aggregate of liu irregular soft tissue fragments, which is submitted entirely in one cassette. Signed (signature on file) Baltazar Delgadillo MD 1608 END OF REPORT * ML=Testing performed at Main Lab DEPARTMENT OF PATHOLOGY, [address] [place] [address] Baltazar Delgadillo M.D. Director [facility] # [id number] 22 SEE RESULT BELOW Name: MITAREJI W : [address]: Nolan Thomas MD Acct: [id number] Unit: [id number] AGE: 80 Location: ENDO Re09/09/15 SEX: M Status: REG REF SPEC: [id number] MARYBETH: 09/09/15- [facility] DR: Nolan Thomas MD REQ: [id number] RECD: 09/09/15-1152 STATUS: SONY ROBB DR: Chau Soto MD [...] performed at Main Lab DEPARTMENT OF PATHOLOGY, [address] [place] [address] Baltazar Delgadillo M.D. Director [facility] # [id number] RUN DATE: 09/16/15 [facility] LAB LIVE PAGE 2 Patient: REJI COATS [id number] (Continued) POST-OPERATIVE DIAGNOSIS (Continued) POST-OPERATIVE DIAGNOSIS Larynx [...] performed at Main Lab DEPARTMENT OF PATHOLOGY, [address] [place] [address] Baltazar Delgadillo M.D. Director [facility] # [id number] 23 FASTING 24 Because ethnic data is not always [...] than 189 mg/dL 41 RUN DATE: 05/02/13 [facility] LAB LIVE PAGE 1 RUN TIME: [address] [place], [place] [address] Specimen Inquiry Name: REJI COATS : [address]: Nolan Thomas MD Acct: [id number] Unit: [id number] AGE: 77 Location: ENDO Re05/01/13 SEX: M Status: REG REF SPEC: [id number] MARYBETH: 05/01/13- [facility] DR: Nolan Thomas MD REQ: [id number] RECD: 05/01/13 STATUS: SONY ROBB DR: Chau Soto MD _ ORDERED: [facility] [place] IV FINAL DIAGNOSIS Esophagus, at 34 [...] specimen is received in formalin labeled Reji Coats, Esophageal Biopsy at 34 cm., and consists of multiple liu-white fragments of tissue that in aggregate measure 0.6 x 0.4 x 0.3 cm. Submitted entirely, one cassette. CONTINUED ON NEXT PAGE * ML=Testing performed at Main Lab DEPARTMENT OF PATHOLOGY, [facility] [employer] [place] [address] Baltazar Delgadillo M.D. Director [facility] Permit #[id number] RUN DATE: 05/02/13 [facility] LAB LIVE PAGE 2 RUN TIME: 6812 [facility] [address] [place], [place] [address] Specimen Inquiry Patient: REJI COATS [id number] (Continued) GROSS DESCRIPTION (Continued) Signed (signature on file) Puja Villavicencio MD 1711 END OF REPORT * ML=Testing performed at Main Lab DEPARTMENT OF PATHOLOGY, [address] [place] [address] Baltazar Delgadillo M.D. Director [facility] Permit #[id number] 42 HDL Interpretation: Undesirable: High Risk: Less than 40 MG/DL Desirable: Low Risk: Greater than 60 MG/DL 43 LDL Interpretation: Low Risk Optimal Level: LDL Less than 100 MG/DL Near or Above Optimal: LDL 100-129 MG/DL Borderline High Risk: LDL 130-159 MG/DL High Risk: LDL 160-189 MG/DL Very High Risk: LDL Greater than 189 MG/DL 44 -- REFERENCE VALUE -- 25-HYDROXY D TOTAL (D2+D3) Optimum levels in the normal population are 25-80 Test Performed by: [facility] [place] [address] Institutional Asset Manager: Chris Lundberg III, M.D. 45 Because ethnic data is not always readily [...] 15-29 5 Kidney failure <15 (or dialysis) 46 ---- RUN DATE: 03/09/12 [facility] NMI LIVE PAGE 1 RUN TIME: 1225 Specimen Inquiry RUN USER: INTERFACE -- Name: COATSREJI W Accvikram#: [id number] Status: REG REF Re03/07/12 Age/Sex: 76/M Unit#: [id number] Location: [facility] : 34 -- Specimen: [id number] SOUT Spec Date:03/07/12- [facility] Dr: Nolan Thomas MD Spec Type: SURGICAL P Received:03/07/12-1054 Copies to: Chau boykin MD SPECIMEN 1) [...] and is negative. -- DEPARTMENT OF PATHOLOGY, [address] [place] [address] [facility] Permit #[id number] Baltazar Delgadillo M.D. Director Flavio Belle M.D. Insemination Worker Dir keegan -- -- RUN DATE: 03/09/12 [facility] NMI LIVE PAGE 2 RUN TIME: 1225 Specimen Inquiry RUN USER: INTERFACE -- Name: REJI COATS Status: REG REF Re03/07/12 Age/Sex: 76/M Unit#: [id number] Location: [facility] : 34 -- -- CONTINUED -- Signed Electronically by: BALTAZAR DELGADILLO MD 03/09/12 1224 -- -- DEPARTMENT OF PATHOLOGY, [address] [place] [address] [facility] Permit #[id number] Baltazar Delgadillo M.D. Director Flavio Belle M.D. Insemination Worker Dir keegan -- 47 Anion gap measurement may be of limited value in the presence of any alkalosis, especially in a combined acid base disorder. . 48 A metabolite of Naproxen, O-desmethylnaproxen, has been shown to interfere with the Jendrassik-Marlen method for measuring total bilirubin. Samples from patients who have taken Naproxen have shown spurious elevation in total bilirubin levels. 49 Because ethnic data is not always readily [...] 15-29 5 Kidney failure <15 (or dialysis) 50 CHOLESTEROL INTERPRETATION: Desirable: Less than 200 MG/DL Borderline-High Risk: 200-239 MG/DL High-Risk: 240 MG/DL and over 51 HDL INTERPRETATION: Undesirable: High Risk: Less than 40 MG/DL Desirable: Low Risk: Greater than 60 MG/DL 52 LDL INTERPRETATION: Low Risk Optimal Level: LDL Less than 100 MG/DL Near or Above Optimal: LDL 100-129 MG/DL Borderline High Risk: LDL 130-159 MG/DL High Risk: LDL 160-189 MG/DL Very High Risk: LDL Greater than 189 MG/DL 53 * SERUM LEVELS OF PSA MEASURED USING THE [employer] ACCESS HYBRITECH IMMUNOASSAY SHOULD NOT BE INTERPRETED ABSOLUTE EVIDENCE OF THE PRESENCE OR ABSENCE OF DISEASE. THE PSA VALUE SHOULD BE USED IN CONJUNCTION WITH OTHER PERTINENT CLINICAL DIAGNOSTIC PROCEDURES. 54 Anion gap measurement may be of limited value in the presence of any alkalosis, especially in a combined acid base disorder. . 55 Because ethnic data is not always readily [...] 15-29 5 Kidney failure <15 (or dialysis) 56 CHOLESTEROL INTERPRETATION: Desirable: Less than 200 MG/DL Borderline-High Risk: 200-239 MG/DL High-Risk: 240 MG/DL and over 57 HDL INTERPRETATION: Undesirable: High Risk: Less than 40 MG/DL Desirable: Low Risk: Greater than 60 MG/DL 58 LDL INTERPRETATION: Low Risk Optimal Level: LDL Less than 100 MG/DL Near or Above Optimal: LDL 100-129 MG/DL Borderline High Risk: LDL 130-159 MG/DL High Risk: LDL 160-189 MG/DL Very High Risk: LDL Greater than 189 MG/DL 59 Anion gap measurement may be of limited value in the presence of any alkalosis, especially in a combined acid base disorder. . 60 Note change in reference range as of 06/06/08. The change was based on recommendations from the [employer]. 61 A metabolite of Naproxen, O-desmethylnaproxen, has been shown to interfere with the [place] method for measuring total bilirubin. Samples from patients who have taken Naproxen have shown spurious elevation in total bilirubin levels. 62 Because ethnic data is not always readily [...] 15-29 5 Kidney failure <15 (or dialysis) 63 CHOLESTEROL INTERPRETATION: Desirable: Less than 200 MG/DL Borderline-High Risk: 200-239 MG/DL High-Risk: 240 MG/DL and over 64 HDL INTERPRETATION: Undesirable: High Risk: Less than 40 MG/DL Desirable: Low Risk: Greater than 60 MG/DL 65 LDL INTERPRETATION: Low Risk Optimal Level: LDL Less than 100 MG/DL Near or Above Optimal: LDL 100-129 MG/DL Borderline High Risk: LDL 130-159 MG/DL High Risk: LDL 160-189 MG/DL Very High Risk: LDL Greater than 189 MG/DL 66 CHOLESTEROL INTERPRETATION: Desirable: Less than 200 MG/DL Borderline-High Risk: 200-239 MG/DL High-Risk: 240 MG/DL and over 67 HDL INTERPRETATION: Undesirable: High Risk: Less than 40 MG/DL Desirable: Low Risk: Greater than 60 MG/DL 68 LDL INTERPRETATION: Low Risk Optimal Level: LDL Less than 100 MG/DL Near or Above Optimal: LDL 100-129 MG/DL Borderline High Risk: LDL 130-159 MG/DL High Risk: LDL 160-189 MG/DL Very High Risk: LDL Greater than 189 MG/DL 69 Anion gap measurement may be of limited value in the presence of any alkalosis, especially in a combined acid base disorder. . 70 Note change in reference range as of 06/06/08. The change was based on recommendations from the [employer]. 71 Please note change in reference range effective 08 . 72 Because ethnic data is not always readily [...] 15-29 5 Kidney failure <15 (or dialysis) 73 ---- RUN DATE: 03/25/10 [facility] NMI LIVE PAGE 1 RUN TIME: 1442 Specimen Inquiry RUN USER: INTERFACE -- Name: REJI COATS Status: REG REF Re03/24/10 Age/Sex: 74/M Unit#: [id number] Location: [facility]. : 34 -- Specimen: [id number] SOUT Spec Date: 03/24/[address]: Nolan [...] 03/25/10 1442 -- -- DEPARTMENT OF PATHOLOGY, [address] [place] [address] [facility] Permit #[id number] Baltazar Delgadillo M.D. Director Flavio Belle M.D. Insemination Worker Dir keegan -- 74 FASTING 75 Lymphopenia % 76 Anion gap measurement may be of limited value in the presence of any alkalosis, especially in a combined acid base disorder. . 77 Note change in reference range as of 06/06/08. The change was based on recommendations from the [employer]. 78 Please note change in reference range effective 08 . 79 A metabolite of Naproxen, O-desmethylnaproxen, has been shown to interfere with the [place] method for measuring total bilirubin. Samples from patients who have taken Naproxen have shown spurious elevation in total bilirubin levels. 80 Because ethnic data is not always readily [...] 15-29 5 Kidney failure <15 (or dialysis) 81 CHOLESTEROL INTERPRETATION: Desirable: Less than 200 MG/DL Borderline-High Risk: 200-239 MG/DL High-Risk: 240 MG/DL and over 82 HDL INTERPRETATION: Undesirable: High Risk: Less than 40 MG/DL Desirable: Low Risk: Greater than 60 MG/DL 83 LDL INTERPRETATION: Low Risk Optimal Level: LDL Less than 100 MG/DL Near or Above Optimal: LDL 100-129 MG/DL Borderline High Risk: LDL 130-159 MG/DL High Risk: LDL 160-189 MG/DL Very High Risk: LDL Greater than 189 MG/DL 84 CHOLESTEROL INTERPRETATION: Desirable: Less than 200 [...] MG/DL [address] SPENCE [phone] Anion gap measurement may be of [...] a combined acid base disorder. . 99 Classification: Desirable . 100 CALCULATED LDL APPROXIMATES THE VALUE OF A DIRECT LDL MEASUREMENT. Classification: Borderline High . 101 REFERENCE RANGE FOR HOMOCYSTEINE (UMOL/L): AGE MALES [...] OF CORONARY HEART DISEASE. TEST PERFORMED BY: [employer], [facility]. [id number] [place] [phone] Classification: Borderline High . 103 Classification: Low . 104 CALCULATED LDL APPROXIMATES THE VALUE OF A DIRECT LDL MEASUREMENT. Classification: Borderline High . 105 Anion gap measurement may be of limited value in the presence of any alkalosis, especially in a combined acid base disorder. . Procedures Date CPT Code Description Status 02/08/2018 17050 EKG Tracing & Interpretation Completed 12/16/2017 09311 EKG Tracing & Interpretation Completed 11/08/2017 84289 Inject/Drain Joint/Bursa Intermediate W/O US Completed 09/12/2017 69510 ECHO Transthorasic Realtime 2D W Doppler & Color Flow Completed Hosp 06/07/2017 87139 EKG Tracing & Interpretation Completed 07/22/2016 09805 ECHO Stress Test Incl Perf Contiuous ekg Monitoring Completed W/Phys Superv 05/13/2016 97743 EKG Tracing & Interpretation Completed 03/25/2015 61569 EKG Tracing & Interpretation Completed 08/08/2014 48758 EKG Tracing & Interpretation Completed 05/09/2014 95659 ECHO Stress Test Incl Perf Contiuous ekg Monitoring Completed W/Phys Superv 05/09/2014 46844 ECHO Stress Test Incl Perf Contiuous ekg Monitoring Completed W/Phys Superv 04/17/2014 97027 EKG Tracing & Interpretation Completed 02/05/2014 43538 EKG Tracing & Interpretation Completed 08/23/2013 99191 EKG Tracing & Interpretation Completed 03/15/2013 15284 ECHO Transthoracic, Real-Time 2D With Doppler And Color Completed Flow 03/14/2013 24199 ECHO Stress Test Incl Perf Contiuous ekg Monitoring Completed W/Phys Superv 03/14/2013 91903 ECHO Stress Test Incl Perf Contiuous ekg Monitoring Completed W/Phys Superv 02/15/2013 24322 EKG Tracing & Interpretation Completed 03/08/2012 19800 ECHO Stress Test Incl Perf Contiuous ekg Monitoring Completed W/Phys Superv 02/10/2012 06768 EKG Tracing & Interpretation Completed 02/11/2011 32654 EKG Tracing & Interpretation Completed 04/22/2010 95657 ECHO Stress Test Incl Perf Contiuous ekg Monitoring Completed W/Phys Superv 09/05/2009 43836 EKG Tracing & Interpretation Completed 07/17/2008 Colonoscopy Completed 05/23/2008 32802 EKG Tracing & Interpretation Completed 02/26/2008 02617 Stress Test Completed 02/26/2008 32573 Stress Test Completed 02/26/2008 28875 ECHO/Stress Completed 02/26/2008 70101 Stress Test Completed 02/26/2008 66402 ECHO/Stress Completed 08/29/2007 45525 EKG Tracing & Interpretation Completed 08/29/2007 01772 EKG Tracing & Interpretation Completed 02/24/2007 32197 EKG Tracing & Interpretation Completed 09/29/2006 23692 EKG Tracing & Interpretation Completed 09/29/2006 10678 EKG Tracing & Interpretation Completed 06/28/2006 83695 ECHO/Stress Completed 06/28/2006 02830 ECHO/Stress Completed 06/28/2006 17136 Stress Test Completed 05/19/2006 40248 EKG Tracing & Interpretation Completed 05/19/2006 74739 EKG Tracing & Interpretation Completed 04/02/2005 52737 ECHO/Stress Completed 04/02/2005 39158 Stress Test Completed 03/04/2005 30366 EKG Tracing & Interpretation Completed 03/06/2004 85242 EKG Tracing & Interpretation Completed 02/04/2003 33894 ECHO/Stress Completed 02/04/2003 35620 Stress Test Completed 01/10/2003 25334 EKG Tracing & Interpretation Completed Encounters Type Date Location Provider CPT E/M Dx Office Visit 02/08/2018 11:20a [facility] Cesar Christianson M.D. 31654 I10 G46.3 E78.5 I65.23 Office Visit 12/29/2017 9:00a [facility] Leigha Shepherd, N.PChristelle 20643 I10 G46.3 E78.5 I25.2 Office Visit 12/16/2017 2:00p [facility] Cesar Christianson M.D. 32983 I10 G46.3 E78.5 I25.2 Office Visit 11/08/2017 1:15p [facility] [place] [address] M19.031 C.M.A. M25.531 Office Visit 09/21/2017 11:50a [facility] [place] [address] I63.[address] I89.0 Office Visit 09/15/2017 1:30p [facility] [place] [address] I63[address] E78.5 R05 Office Visit 09/12/2017 11:01a [facility] [address] I63.9 G46.3 E78.5 I10 Z86.73 Office Visit 09/12/2017 1:06p [facility], Irene Watson 41950 I63.9 Rajani Rosen C15.9 I10 Office Visit 09/11/2017 11:00[place] [address] I63.9 G46.3 E78.5 I10 Z86.73 Office Visit 09/11/2017 [facility]am[facility] Watson 90252 I63.9 Hospitalists Silas C15.9 I10 I65.21 Office Visit 06/30/2017 9:10a [facility] Internal Chau Soto, 50337 Z00.01 Medicine - [place] Logan Rosen,FACP C15.5 I25.10 I65.23 J45.20 Office Visit 06/07/2017 3:00p [facility] Cesar Christianson M.D. 95747 I10 I25.10 E78.01 C15.5 E78.5 R94.31 Office Visit 05/27/2017 10:20a [facility] Internal Medicine Chau S[place], 49986 J45.31 - [place] Logan Rosen,FACP Office Visit 08/30/2016 2:00p [facility] ROXANNA Manuel 34659 I10 I25.10 Office Visit 08/12/2016 9:00a [facility] ROXANNA Manuel 55344 I10 I25.10 Office Visit 08/02/2016 4:15p [facility] Nurse Visit 97373 I10 Office Visit 07/22/2016 9:15a [facility] Cesar Christianson, 66097 I10 Noemy Rosen I25.10 E78.01 E78.00 E78.0 Office Visit 07/08/2016 9:00a [facility] ROXANNA Manuel 52259 I10 K22.711 I25.10 Office Visit 06/24/2016 9:10a [facility] Internal Chau S[place], 25072 Z00.00 Medicine - [place] Logan Rosen,FACP I65.23 I10 K22.711 Z23 Office Visit 05/13/2016 10:00a [facility] Cesar Christianson, 92439 K22.711 Noemy Rosen I10 E78.0 I25.10 Office Visit 03/03/2016 9:30a [facility] ROXANNA Manuel 83609 I10 K22.711 E78.0 I25.10 Office Visit 02/16/2016 9:00a [facility] ROXANNA Manuel 39560 K22.711 I10 E78.0 I25.10 Office Visit 06/19/2015 8:30a [facility] Internal Medicine Chau S[place], 42896 V70.0 - [place] M.D.,FACP 433.10 530.85 414.01 493.00 Office Visit 03/25/2015 11:45a [facility] Cesar Christianson, 09093 401.1 Noemy Rosen 414.01 433.10 272.0 794.31 Office Visit 08/08/2014 11:20a [facility] Cesar Christianson, 37763 433.10 MShaka 414.01 401.1 794.31 Office Visit 05/16/2014 9:00a [facility] ROXANNA Manuel 84009ECH 414.01 401.1 272.0 Office Visit 05/09/2014 1:30p [facility] Cesar Christianson M.D. 54589 401.1 414.01 433.10 Office Visit 04/25/2014 10:30a [facility] Internal Medicine Chau S[place], [address] V70[address]0 - [address] Rosen,FACP 414.01 530.85 Office Visit 04/17/2014 3:40p [facility] Cesar Christianson M.D. 19042 401.1 414.01 272.0 Office Visit 04/04/2014 9:00a [facility] ROXANNA Manuel 48673 401.1 433.10 414.01 272.0 Office Visit 02/05/2014 3:00p [facility] Cesar Christianson M.D. 68208 401.1 272.0 414.01 433.10 Office Visit 08/29/2013 1:40p [facility] Rosaline Barraza D.O. 83367 794.30 401.1 272.0 435.9 Office Visit 08/23/2013 2:20p [facility] Cesar Christianson M.D. 55967 272.0 414.01 433.10 794.31 Office Visit 08/09/2013 10:10a [facility] Internal Medicine Chau S[place], [address] - [address] Rosen,FACP 272.0 Office Visit 04/17/2013 9:10a [facility] Internal Medicine Chau Steve Soto, [address] V70.0 - [address] Rosen,FACP 414.01 433.10 530.85 Office Visit 03/14/2013 3:30p [facility] Cesar Christianson M.D. 88404 272.0 401.1 780.79 414.01 Office Visit 02/15/2013 8:40a [facility] Cesar Christianson M.D. 52183 401.1 272.0 780.79 414.01 Office Visit 02/07/2013 4:00p [facility] Internal Medicine ChauDavid Soto, [address] - [address] Rosen,FACP 401.1 414.01 Office Visit 09/26/2012 3:30p [facility] Internal Medicine Juana David, N.P. 91322 472.0 - [place] V04.89 401.1 Office Visit 05/18/2012 8:00a [facility] Internal Medicine Juana David, N.P. 60190 V06.1 - [place] 401.1 414.01 272.0 433.10 607.84 V72.84 530.85 366.9 Office Visit 03/03/2012 8:29a [facility] Cesar Christianson, 34755 414.01 MChristelleDChristelle 405.09 Office Visit 02/10/2012 10:20a [facility] Cesar Christianson 78696 433.10 MShaka 414.01 401.1 272.0 Office Visit 07/22/2011 10:10a DO Not Use [employer]ement [employer] AT ChauDavid Soto, 38365 V70.0 Yon Rosen,FACP 433.10 414.01 607.84 530.85 Office Visit 02/11/2011 10:00a [facility] Cesar Christianson 11483 414.01 MChristelleDChristelle 401.1 272.0 Office Visit 07/16/2010 10:00a DO Not Use Cement Contractor AT ChauDavid S[place], 03411 414.01 Yon Rosen,FACP 401.1 530.85 493.00 Office Visit 09/05/2009 2:00p [facility] Cesar Tyson Mayue, 51907 414.01 M.D. 272.0 Office Visit 05/23/2008 9:00a [facility] Cesar Tyson May[place], 59921 414.01 M.D. 272.0 Office Visit 04/23/2008 3:00p DO Not [place] [address] 692.6 [facility] Office Visit 02/05/2008 2:00p DO Not Use Cement Contractor AT Chau S[place], 73894 401.1 [facility] Silas[facility] 600.00 414.01 V76.44 V76.51 Office Visit 08/29/2007 8:40a [facility] Cesar QuiñonesChristelle Adalbertoyue, 28977 414.01 M.D. 401.1 272.0 Office Visit 02/24/2007 2:40p [facility] Cesar QuiñonesChristelle Adalbertoyue, 55778 414.01 M.D. 401.1 272.0 Office Visit 09/29/2006 8:40a [facility] Cesar QuiñonesChristelle Adlabertoyue, 69360 414.01 M.D. 272.0 Office Visit 06/28/2006 3:20p [facility] Cesar QuiñonesChristelle Adalbertoyue, 23689 414.01 M.D. Office Visit 05/19/2006 3:00p [facility] Cesar QuiñonesChristelle Adalbertoyue, 91175 414.01 M.D. 272.0 786.50 Office Visit 03/04/2005 3:00p [facility] Cesar QuiñonesChristelle Adalbertoyue, 33249 414.01 M.D. 786.50 401.0 272.0 Office Visit 03/06/2004 2:20p [facility] Cesar QuiñonesChristelle Adalbertoyue, 29143 414.01 M.D. 272.0 401.0 Plan of Care Future Appointment(s):06/28/2018 1:00 pm - Chau Soto M.D.,FACP at [facility] Internal Medicine - [address]03/30/2018 - Chau Soto M.D.,FACPJ45.40 Moderate persistent asthma, uncomplicatedComments:Please continue Inhaler medication to aid in asthma symptoms.I10 Essential (primary) hypertensionComments:You are meeting target blood pressure. Continue low salt diet.Aerobic exercise 30 minutes 5 times per week should improve blood pressure. Please continue blood pressure medication as prescribed.Goals:Blood pressure goal <140/90 in general. Blood pressure goal <150/90 in people older than 75. Blood pressure goal <130/85 in diabetic patients. Goal BMI is less than 25.
[2018-04-20 17:51] VITALS: BP 137/80
--- NOTE | 2018-04-20 20:50 | ED ---
Emma Garcia Edward, scribed for Phani Jarquin MD on 04/20/18 at 1555 . Complex/Multi-Sys Presentation - HPI Summary HPI Summary: 82 y/o male presents to the ED c/o general fatigue starting two days ago. Fatigue aggravated with exertion. Pt states his BP was down (111/57) yesterday. At around 14:00 today the pt's BP was 98/50. Pt feels asymptomatic now once getting to the ED. PMHx CVA (R side), esophagus CA. Pt c/o chronic R-sided weakness s/p CVA aggravated this morning, resolved spontaneously. Associated sx : diarrhea and constipation. - History Of Current Complaint Chief Complaint: EDWeakness Time Seen by Provider: 04/20/18 15:45 Hx Obtained From: Patient Onset/Duration: Lasting Days Timing: Constant Aggravating Factor(s): Exertion Associated Signs And Symptoms: Positive: Weakness, Diarrhea, Other - Constipation - Allergies/Home Medications Allergies/Adverse Reactions: Allergies Allergy/AdvReac Type Severity Reaction Status Date / Time ezetimibe [From Zetia] Allergy AVOIDS- Verified 04/20/18 14:17 PATIENT PREFERENCE lisinopril Allergy SORE THROAT Verified 04/20/18 14:17 statins Allergy See Comment Uncoded 04/20/18 14:17 PMH/Surg Hx/FS Hx/Imm Hx Previously Healthy: No Endocrine/Hematology History: Denies: Hx Diabetes Cardiovascular History: Reports: Hx Coronary Artery Disease - CAROTID ARTERIES- PARTIALLY BLOCKED, Hx Hypertension - ON MEDICATION FOR, Other Cardiovascular Problems/Disorders - PAYMENT REP-DR. PITTS Denies: Hx Pacemaker/ICD Respiratory History: Reports: Hx Asthma - PRN INHALER, Other Respiratory Problems/Disorders - ESOPHEAL CANCER GI History: Reports: Hx Gastroesophageal Reflux Disease - ON MEDICATION FOR, Hx Hiatal Hernia - HAD SURGERY FOR-1970, Other GI Disorders - BURGER'S ESOPHAGUS History: Reports: Hx Kidney Stones - X Denies: Hx Renal Disease Musculoskeletal History: Reports: Hx Arthritis - RIGHT WRIST, Hx Tendonitis - RIGHT WRIST Sensory History: Reports: Hx Cataracts, Hx Contacts or Glasses - glasses for distance, Hx Hearing Aid - bilateral Denies: Hx Legally Blind Opthamlomology History: Reports: Hx Cataracts, Hx Contacts or Glasses - glasses for distance Denies: Hx Legally Blind Neurological History: Reports: Hx Transient Ischemic Attacks (TIA) - 2000, Other Neuro Impairments/Disorders - 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 HEARING AIDE - Cancer History Cancer Type, 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 Hx Chemotherapy: No Hx Palliative Cancer Treatment: Yes - Surgical History Surgery Procedure, Year, and Place: BURGER'S ESOPHAGUS, HIATAL HERNIA, TONSIL/ ADENOIDS, CATARACT BILATERAL. AGE 5-CIRCUMCISION Hx Anesthesia Reactions: No Infectious Disease History: No Infectious Disease History: Denies: Traveled Outside the [place] in Last 30 Days - Family History Known Family History: Positive: Cardiac Disease - Social History Alcohol Use: Rare Alcohol Amount: 1 drink/week Hx Substance Use: No Substance Use Type: Reports: None Hx Tobacco Use: No Smoking Status (MU): Former Smoker Review of Systems Positive: Fatigue Eyes: Negative ENT: Negative Cardiovascular: Negative Respiratory: Negative Positive: Diarrhea, Other - Constipation Genitourinary: Negative Musculoskeletal: Negative Skin: Negative Positive: Weakness - R side Psychological: Normal All Other Systems Reviewed And Are Negative: Yes Physical Exam Triage Information Reviewed: Yes Vital Signs On Initial Exam: Initial Vitals Temp Pulse Resp BP Pulse Ox 97.4 F 68 16 127/84 97 04/20/18 14:10 04/20/18 14:10 04/20/18 14:10 04/20/18 14:10 04/20/18 14:10 Vital Signs Reviewed: Yes Appearance: Positive: Well-Appearing, No Pain Distress Skin: Positive: Warm, Skin Color Reflects Adequate Perfusion, Dry Head/Face: Positive: Normal Head/Face Inspection Eyes: Positive: EOMI, DOREEN ENT: Positive: Normal ENT inspection Neck: Positive: Supple, Nontender Respiratory/Lung Sounds: Positive: Clear to Auscultation, Breath Sounds Present Cardiovascular: Positive: RRR Abdomen Description: Positive: Nontender, Soft Bowel Sounds: Positive: Present Musculoskeletal: Positive: Strength/ROM Intact, Other - Wrist splint on R wrist. Neurological: Positive: Sensory/Motor Intact, Alert, Oriented to Person Place, Time Psychiatric: Positive: Affect/Mood Appropriate Diagnostics - Vital Signs Vital Signs Temp Pulse Resp BP Pulse Ox 04/20/18 15:28 97.5 F 60 136/55 100 04/20/18 14:10 97.4 F 68 16 127/84 97 - Laboratory Lab Statement: Any lab studies that have been ordered have been reviewed, and results considered in the medical decision making process. Complex Multi-Symp Course/Dx Course Of Treatment: PATIENT IS FEELING NORMAL UPON INITIAL EVALUATION BY MYSELF. HE REPORTS HE STARTED FEELING BETTER UPON ARRIVAL TO THE ED. WE DISCUSSED IV FLUIDS/LABS AND FURTHER WORKUP. THE PATIENT PREFERED NO FURTHER EVALUATION IN THE ED. HE AMBULATED IN THE ED. VITAL SIGNS NORMAL AND HE FELT WELL. F/U PMD; RETURN TO ED IF WORSE. - Diagnoses Provider Diagnoses: Weakness Discharge - Sign-Out/Discharge Documenting (check all that apply): Discharge/Admit/Transfer - Discharge Plan Condition: Stable Disposition: HOME Patient Education Materials: Weakness (ED) Referrals: Deric Robles MD [Medical Doctor] - Chau Soto MD [Primary Care Provider] - Additional Instructions: FOLLOW UP WITH YOUR DOCTOR. RETURN TO THE EMERGENCY DEPARTMENT FOR ANY WORSENING OF YOUR CONDITION OR QUESTIONS OR CONCERNS. - Billing Disposition and Condition Condition: STABLE Disposition: Home The documentation as recorded by the Emma saeed Edward accurately reflects the service I personally performed and the decisions made by me, Phani Jarquin MD.
== END 2018-04-20 17:12 | disposition home or self-care (01) ==
LOC: ED 14:02
DX: R53.83 Other fatigue (principal); I69.351 Hemiplegia and hemiparesis following cerebral infarction affecting right dominant side; I10 Essential (primary) hypertension; K21.9 Gastro-esophageal reflux disease without esophagitis; Z87.891 Personal history of nicotine dependence; Z85.01 Personal history of malignant neoplasm of esophagus; Z79.899 Other long term (current) drug therapy; Z88.8 Allergy status to other drugs, medicaments and biological substances
CPT/HCPCS: 99282

== ENCOUNTER 2019-07-30 11:00 | Emergency (ER) | payer MEDICARE ==
[2019-07-30] MEDS ORDERED: Pantoprazole IV* 40 MG IV ONE (11:30)
[2019-07-30] MEDS ORDERED: NS 0.9% 1000 ML** 1,000 ML IV ONE (11:30)
--- NOTE | 2019-07-30 11:32 | ED ---
GI/ HPI - HPI Summary HPI Summary: Pt is an 84 y/o M presenting to the ED for a chief complaint of melena for the last 2 weeks. Pt is present with his . Pt awoke at 06:00 and went back to bed at 06:15. Pt later awoke again at 09:00 went to sleep again for 09:15 on . Pt attributes his sleeping pattern to fatigue. Pt reports lack of appetite, throat pain while eating, and back pain that changes locations. Pt denies abdominal pain, nausea, or vomiting. Pt currently has esophageal cancer. Pt is scheduled for an endoscopy scheduled every [address] Thomas to open his esophagus. Pt had blood work ordered by Dr. Robles recently. Pt is currently taking iron supplements. - History of Current Complaint Chief Complaint: EDGIBleed Time Seen by Provider: 07/30/19 11:23 Stated Complaint: CANCER PT- BLACK STOOL, WEAKNESS PER Hx Obtained From: Patient Onset/Duration: Started Weeks Ago - 2 weeks, Atraumatic, Still Present Timing: Lasting Weeks - 2 weeks Severity: Moderate Current Severity: Moderate Pain Intensity: 4 Location of Pain: None Associated Signs and Symptoms: Positive: Back Pain - Changes location, Change in Appetite - Low appetite, Melena, Other: - Positive fatigue and throat pain while eating. Negative: Nausea, Vomiting, Abdominal Pain Aggravating Factor(s): Nothing Alleviating Factor(s): Nothing - Allergy/Home Medications Allergies/Adverse Reactions: Allergies Allergy/AdvReac Type Severity Reaction Status Date / Time cat dander Allergy Unknown Verified 07/30/19 11:10 Reaction Details ezetimibe [From Zetia] Allergy AVOIDS- Verified 07/30/19 11:10 PATIENT PREFERENCE perfume Allergy Wheezing Verified 07/30/19 11:10 pitavastatin [From Livalo] AdvReac Unknown Muscle Ache Verified 07/30/19 11:10 lisinopril AdvReac SORE THROAT Verified 07/30/19 11:10 statins AdvReac Intermediate Myalgias Uncoded 06/26/19 13:59 Home Medications: Home Medications Albuterol HFA INHALER* [Ventolin HFA Inhaler*] 2 puff INH Q4H PRN 07/30/19 [ History Confirmed 07/30/19] PMH/Surg Hx/FS Hx/Imm Hx Previously Healthy: Yes Endocrine/Hematology History: Denies: Hx Diabetes Cardiovascular History: Reports: Hx Coronary Artery Disease - CAROTID ARTERIES- PARTIALLY BLOCKED, Hx Hypertension - ON MEDICATION, Other Cardiovascular Problems/Disorders - [employer]. PITTS Denies: Hx Pacemaker/ICD Respiratory History: Reports: Hx Asthma - PRN INHALER, Other Respiratory Problems/Disorders - ESOPHEAL CANCER GI History: Reports: Hx Gastroesophageal Reflux Disease - ON MEDICATION FOR, Hx Hiatal Hernia - HAD SURGERY FOR-1970, Other GI Disorders - BURGER'S ESOPHAGUS History: Reports: Hx Kidney Stones - X -2002 Denies: Hx Renal Disease Musculoskeletal History: Reports: Hx Arthritis - RIGHT WRIST, Hx Tendonitis - RIGHT WRIST Sensory History: Reports: Hx Cataracts, Hx Contacts or Glasses - glasses for distance, Hx Hearing Aid - bilateral Denies: Hx Legally Blind Opthamlomology History: Reports: Hx Cataracts, Hx Contacts or Glasses - glasses for distance Denies: Hx Legally Blind Neurological History: Reports: Hx Transient Ischemic Attacks (TIA) - 2000, Other Neuro Impairments/Disorders - 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 HEARING AIDE - Cancer History Cancer Type, 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 CA Hx Chemotherapy: No Hx Palliative Cancer Treatment: Yes - Surgical History Surgical History: Yes Surgery Procedure, Year, and Place: BURGER'S ESOPHAGUS, HIATAL HERNIA, TONSIL/ ADENOIDS, CATARACT BILATERAL. AGE 5-CIRCUMCISION Hx Anesthesia Reactions: No Infectious Disease History: No Infectious Disease History: Denies: Traveled Outside the [place] in Last 30 Days - Family History Known Family History: Positive: Cardiac Disease - Social History Alcohol Use: Rare Alcohol Amount: 1 drink/week Hx Substance Use: No Substance Use Type: Reports: None Hx Tobacco Use: No Smoking Status (MU): Former Smoker Review of Systems Positive: Fatigue, Other - Low appetite Positive: Other - Positive throat pain while eating Positive: Other - Positive melena. Negative: Abdominal Pain, Vomiting, Nausea Positive: Myalgia - Back that changes location All Other Systems Reviewed And Are Negative: Yes Physical Exam - Summary Physical Exam Summary: Appearance: The patient is well-nourished in no acute distress and in no acute pain. Skin: The skin is warm and dry, and skin color is pale. HEENT: The head is normocephalic and atraumatic. The pupils are equal and reactive. The conjunctivae are pale and without drainage. Nares are patent and without drainage. Mouth reveals moist mucous membranes, and the throat is without erythema and exudate. The external ears are intact. The ear canals are patent and without drainage. The tympanic membranes are intact. Neck: The neck is supple with full range of motion and non-tender. There are no carotid bruits. There is no neck vein distension. Respiratory: Chest is non-tender. Lungs are clear to auscultation and breath sounds are symmetrical and equal. Cardiovascular: Heart is regular rate and rhythm. There is no murmur or rub auscultated. There is no peripheral edema and pulses are symmetrical and equal. Abdomen: The abdomen is soft and non-tender. There are normal bowel sounds heard in all four quadrants and there is no organomegaly palpated. Musculoskeletal: There is no back tenderness noted. Extremities are non-tender with full range of motion. There is good capillary refill. There is no peripheral edema or calf tenderness elicited. Neurological: Patient is alert and oriented to person, place and time. The patient has symmetrical motor strength in all four extremities. Cranial nerves are grossly intact. Deep tendon reflexes are symmetrical and equal in all four extremities. Psychiatric: The patient has an appropriate affect and does not exhibit any anxiety or depression. Triage Information Reviewed: Yes Vital Signs On Initial Exam: Initial Vitals Temp Pulse Resp BP Pulse Ox 97.7 F 82 14 146/75 97 07/30/19 11:03 07/30/19 11:03 07/30/19 11:03 07/30/19 11:03 07/30/19 11:03 Vital Signs Reviewed: Yes Procedures - Sedation Patient Received Moderate/Deep Sedation with Procedure: No Diagnostics - Vital Signs Vital Signs Temp Pulse Resp BP Pulse Ox 07/30/19 11:03 97.7 F 82 14 146/75 97 - Laboratory Result Diagrams: 07/30/19 11:49 07/30/19 11:49 Lab Statement: Any lab studies that have been ordered have been reviewed, and results considered in the medical decision making process. - Radiology Chest X-ray Radiology Interpretation Completed By: Radiologist Summary of Radiographic Findings: Chest X-ray IMPRESSION: No acute cardiopulmonary process by radiograph. Reviewed by ED physician. - EKG 11:33 Cardiac Rate: NL - 74 BPM EKG Rhythm: Sinus Rhythm ST Segment: Normal Ectopy: None Summary of EKG Findings: EKG at 11:33 shows 74 BPM with normal sinus rhythm, normal ST, no ectopy, no STEMI. Reviewed and interpreted by ED physician. Re-Evaluation - Re-Evaluation 1st re-eval Re-Evaluation Time: 13:35 Change: Unchanged Comment: At 13:35, I updated pt on lab results and Dr. Wolfe recommendations for outpatient care. GIGU Course/Dx - Course Course Of Treatment: Mr. Coats came in complaining of having black bowel movements intermittently for the last couple of weeks and in the last couple of days being severely fatigued. He was pale in appearance with stable vitals. Hemoglobin has dropped a couple of points to 8 and his troponin is normal. I think this is likely the source of his fatigue and I spoke with Dr. Vela who is going to give him an outpatient transfusion of a unit of blood. He asked me to notify Dr. Thomas who is scheduled to do an EGD on the patient tomorrow. I did speak with Dr. Hutchinson to pass on the message. - Diagnoses Provider Diagnoses: Upper GI bleed Discharge ED - Sign-Out/Discharge Documenting (check all that apply): Patient Departure - Discharge - Discharge Plan Condition: Stable Disposition: HOME Patient Education Materials: Gastrointestinal Bleeding (ED) Referrals: Joaquin Riley MD [Primary Care Provider] - Additional Instructions: Follow up with scope procedure tomorrow, go to outpatient infusion now. Return to the ED for any new or worsening symptoms. - Billing Disposition and Condition Condition: STABLE Disposition: Home - Attestation Statements Document Initiated by Fabienne: Yes Documenting Mandyibe: Dawn Barron Provider For Whom Fabienne is Documenting (Include Credential): Golden Sifuentes MD Scriblusi e Attestation: I, Dawn Barron, scribed for Golden Sifuentes MD on 07/30/19 at 1956. Scribe Documentation Reviewed: Yes Provider Attestation: The documentation as recorded by the Dawn saeed accurately reflects the service I personally performed and the decisions made by me, Golden Sifuenets MD Status of Scribluis e Document: Viewed Consult Consult: At 13:29, I discussed the pts case with Dr. Vela who recommends pt be given blood in outpatient.
[2019-07-30 12:17] LABS: ABS Basophils 0.1 10^3/ul (0-0.2); ABS Eosinophils 0.2 10^3/ul (0-0.6); ABS Lymphocytes 0.9 10^3/ul (1.0-4.8); ABS Monocytes 1.2 10^3/ul (0-0.8); ABS Neutrophils 9.1 10^3/ul (1.5-7.7); Eosinophil % 1.9 %; Hematocrit 25 % (42-52); Hemoglobin 8.2 g/dL (14.0-18.0); Lymphocyte % 7.7 %; Mean Corpuscular HGB Conc 34 g/dL (31-36); Mean Corpuscular Hemoglobin 29 pg (27-31); Mean Corpuscular Volume 85 fL (80-94); Mean Platelet Volume 6.7 fL (7.4-10.4); Platelet Count 434 10^3/uL (150-450); Red Cell Distribution Width 14 % (10-15); White Blood Count 11.4 10^3/uL (3.5-10.8)
[2019-07-30 12:35] LABS: ALT 7 U/L (7-52); AST 11 U/L (13-39); Albumin 3.3 g/dL (3.2-5.2); Albumin/Globulin Ratio 1.1 (1-3); Alkaline Phosphatase 81 U/L (34-104); Anion Gap 7 mmol/L (2-11); BUN/Creatinine Ratio 18.9 (8-20); Blood Urea Nitrogen 23 mg/dL (6-24); C Reactive Protein 154.34 mg/L (<8.01); CO2 Carbon Dioxide 26 mmol/L (22-32); Calcium 8.8 mg/dL (8.6-10.3); Chloride 101 mmol/L (101-111); EGFR African American 68.3 (>60); EGFR Non-African American 56.5 (>60); Globulin 2.9 g/dL (2-4); Glucose 145 mg/dL (70-100); Potassium 3.9 mmol/L (3.5-5.0); Sodium 134 mmol/L (135-145); Total Protein 6.2 g/dL (6.4-8.9)
[2019-07-30 12:38] LABS: Troponin I 0.01 ng/mL (<0.04)
[2019-07-30 12:45] LABS: INR 1.54 (0.82-1.09)
[2019-07-30 13:59] LABS: % Iron Saturation 12 % (15-55); Iron 30 ug/dL (50-212); Total Iron Binding Capacity 253 mcg/dL (250-450); Transferrin 181 mg/dL (203-362)
[2019-07-30 14:09] VITALS: BP 160/71
== END 2019-07-30 14:08 | disposition home or self-care (01) ==
LOC: ED 11:00
DX: K92.2 Gastrointestinal hemorrhage, unspecified (principal); I25.10 Atherosclerotic heart disease of native coronary artery without angina pectoris; I10 Essential (primary) hypertension; J45.909 Unspecified asthma, uncomplicated; K21.9 Gastro-esophageal reflux disease without esophagitis; Z86.73 Personal history of transient ischemic attack (TIA), and cerebral infarction without residual deficits; Z88.8 Allergy status to other drugs, medicaments and biological substances; Z85.01 Personal history of malignant neoplasm of esophagus; Z87.891 Personal history of nicotine dependence; Z79.899 Other long term (current) drug therapy
CPT/HCPCS: 36415; 71046; 80053; 83540; 83550; 84484; 85025; 85610; 86140; 86850; 86900; 86901; 93005; 96361; 96365; 99282

== ENCOUNTER 2019-07-30 17:27 | Observation (INO) | payer MEDICARE ==
[2019-07-30] MEDS ORDERED: Albuterol HFA INHALER* 8 gm MDI INH PRN (17:38)
[2019-07-30] MEDS: Pantoprazole IV* 40 MG IV SCH (19:03)
[2019-07-31 07:01] LABS: Hematocrit 30 % (42-52); Hemoglobin 10.4 g/dL (14.0-18.0); Mean Corpuscular HGB Conc 34 g/dL (31-36); Mean Corpuscular Hemoglobin 29 pg (27-31); Mean Corpuscular Volume 85 fL (80-94); Mean Platelet Volume 6.9 fL (7.4-10.4); Platelet Count 422 10^3/uL (150-450); Red Blood Count 3.57 10^6 /uL (4.18-5.48); Red Cell Distribution Width 14 % (10-15); White Blood Count 13.1 10^3/uL (3.5-10.8)
[2019-07-31 07:03] LABS: ABS Basophils 0.1 10^3/ul (0-0.2); ABS Eosinophils 0.3 10^3/ul (0-0.6); ABS Lymphocytes 1.3 10^3/ul (1.0-4.8); ABS Monocytes 1.7 10^3/ul (0-0.8); ABS Neutrophils 9.7 10^3/ul (1.5-7.7); Lymphocyte % 10.1 %
[2019-07-31 07:12] LABS: Albumin 3.2 g/dL (3.2-5.2); Calcium 8.7 mg/dL (8.6-10.3); Potassium 4.2 mmol/L (3.5-5.0); Total Bilirubin 0.7 mg/dL (0.2-1.0)
[2019-07-31 07:18] LABS: Albumin/Globulin Ratio 1.1 (1-3); BUN/Creatinine Ratio 19.2 (8-20); EGFR African American 86.9 (>60); EGFR Non-African American 71.8 (>60); Globulin 2.9 g/dL (2-4); Total Protein 6.1 g/dL (6.4-8.9)
[2019-07-31] MEDS ORDERED: fentaNYL* 50 MCG/ML 2 ML VIAL (100 MCG VIAL) ONE (07:49)
[2019-07-31] MEDS ORDERED: Midazolam* 1 MG/ML 10 ML VIAL (10 MG) ONE (07:49)
[2019-07-31] MEDS ORDERED: Iohexol 300* (CONTRAST) 10 ML SDV IV ONE (11:58)
[2019-07-31] MEDS: Diltiazem CD CAP* 180 MG PO SCH (12:05)
[2019-07-31] MEDS: Pantoprazole IV* 40 MG IV SCH (12:06)
[2019-07-31 16:24] LABS: Hematocrit 31 % (42-52); Hemoglobin 10.5 g/dL (14.0-18.0)
--- NOTE | 2019-07-31 22:02 | PRO ---
DATE: 07/31/19. - ROOM #402 REFERRING PHYSICIANS: Dr. Deric Robles, Dr. Joaquin Riley.* PROCEDURE: Upper gastrointestinal endoscopy and balloon dilation, proximal and distal esophageal stricture to 15 mm. INDICATION: This 84-year-old man noted to have esophageal cancer 3-1/2 years ago is not under active treatment other than palliative dilations, came to the emergency room with increasing fatigue yesterday. He delayed coming because of great grandchildren visiting. He was found to be anemic, admitted and received 2 units of blood. His stools have been intermittently dark. He has been generally feeling weaker gradually over the last several weeks. His stools have been intermittently dark. He has been having some anorexia and some increasing trouble getting down solid food, so his has been choosing for the most part mashed potatoes and similar consistencies. He has been off Plavix since his last dilation in early June. ENDOSCOPIST: Dr. Thomas. MEDICATIONS: Midazolam 5, fentanyl 37.5. FINDINGS: He is a tired appearing man in no overt distress, but stating he just feels "beat." He does complain of back pain and later said it started as a right hip area distress, shoveling a lot of stones. That distress tended to generalize. There was no particular fall or abrupt injury, just apparent over exertion. He is a tired chronically ill-appearing man tending to have his right eye closed during conversation. He appears much less vigorous than previous visits. He has no philosophic questions about the limits of care as he had before. He was positioned left side down and moderate sedation induced. He tolerated the exam well. EGD: Larynx - symmetric limited views. Esophagus - easily entered and the mucosa is normal down to about 32 or 33 where there is irregular wall thickening deformity and opposed osman that the tip of the scope will push open easily and then friable eroded granular area of lumen that has some minimal amount of blood and some small clots that are fairly fresh. The scope passes down through necrotic debris at the lower end of this, which is at 38 to 39 and then blunt advancement with minimal pressure reaches the hiatus at 40. The scope was blunt advance but not dilating. The distal couple of centimeters is clearly composed of tumor in the wall and was oozing trickles of blood. Stomach - some minimal wisp of old blood seen, but no other pathology. The cardia, fundus, body, and antrum showed no evidence of tumor. Duodenum - the pylorus, bulb, and second and third portions were normal. A through the scope dilator was inserted and inflated at the upper end of the stricture to 15 mm. The patient tolerated this well. There was no reaction as had been sometimes evident on prior dilations. Dilation lower down or to a larger capacity was not done as the main necrotic tumor chamber was not stenotic. There was a question of what other deeper vascular structures might be engaged by a more vigorous dilation. IMPRESSION: Progressive distal esophageal cancer with local necrosis and bleeding and to a lesser extent obstruction. He has been transfused 2 units. Regular transfusions or iron infusions or palliative care are all options, possibly in combination. [id number]/[facility] #: [id number] MTDD
[2019-08-01 06:20] LABS: Hematocrit 32 % (42-52); Mean Corpuscular HGB Conc 35 g/dL (31-36); Mean Corpuscular Hemoglobin 30 pg (27-31); Mean Corpuscular Volume 85 fL (80-94); Platelet Count 434 10^3/uL (150-450); Red Blood Count 3.72 10^6 /uL (4.18-5.48); Red Cell Distribution Width 14 % (10-15); White Blood Count 12.5 10^3/uL (3.5-10.8)
[2019-08-01 06:36] LABS: ABS Eosinophils 0.2 10^3/ul (0-0.6); ABS Lymphocytes 1.3 10^3/ul (1.0-4.8); ABS Monocytes 1.7 10^3/ul (0-0.8); ABS Neutrophils 9.4 10^3/ul (1.5-7.7); Eosinophil % 1.3 %; Lymphocyte % 10.2 %; Nucleated Red Blood Cells % 0.1
[2019-08-01] MEDS: Diltiazem CD CAP* 180 MG PO SCH (10:35)
[2019-08-01] MEDS: Pantoprazole IV* 40 MG IV SCH (10:36)
[2019-08-01 11:09] VITALS: BP 153/73
--- NOTE | 2019-09-06 00:15 | DS ---
DISCHARGE SUMMARY: DATE OF ADMISSION: 07/30/19 DATE OF DISCHARGE: 08/01/19 REASON FOR ADMISSION: Anemia and bleeding from esophageal cancer. HISTORY AND HOSPITAL COURSE: Mr. Coats is an 84-year-old male who has had a quite long-standing history of esophageal cancer dating back 3 to 4 years. He had required endoscopy and some dilatation of the esophagus, but never had any therapy for it. Recently, he has been found to have a markedly increased anemia and an EGD in June 2019 revealed worsening of the tumor, now oozing and larger. Over the 2 weeks prior to admission, he was much more fatigued, the appetite was diminished, less in the way of oral intake. More short of breath. He was found to have a markedly diminished hemoglobin at 8.2 having previously been 10. Decision was made given his increased symptoms to admit him to the hospital and to transfuse packed red blood cells, to restage him with both the EGD and a CT scan of the chest and abdomen. Unfortunately, the CT of the chest and abdomen revealed a marked increased disease versus the prior imaging. He was found to have a much larger primary esophageal cancer along with a significant adenopathy in the mediastinal, paraesophageal and along the gastrohepatic ligaments. He also noted out multiple lucent lesions of the skeleton, developed bilateral adrenal nodules and lung nodules. On EGD by Dr. Thomas, the mass was much larger, more friable and almost occlusive in the distal esophagus. The patient received packed red blood cells 1 unit on . With this, hemoglobin justin to 11.0. It should be noted that he had just had 2 units of packed red blood cells, just prior to admission for a total of 3 units bringing it up to this level. By the time of discharge, he was feeling much less fatigued, much less short of breath. Situation was discussed with the patient in detail along with his . Options included potential radiation therapy to relieve the potential obstruction and diminished bleeding versus a more palliative approach. This was discussed with him and his immediately after the EGD when he was too drowsy to be unable to make decisions and again the following day when he was considering it. He had previously been made a DNR/DNI and this was kept in effect. The patient was asked to follow up in the office shortly after the hospitalization to further discuss his wishes. He was discharged to home in a stable condition, but very ill and we will need to consider his poor condition. DISCHARGE DIAGNOSES: 1. Widely metastatic esophageal cancer. 2. Recent GI bleed. 3. History of atrial fibrillation. The patient was asked to get a CBC in 1 week and the CBC at our office visit in 2 weeks' time with our office. He was advised to avoid any medications that could increase bleeding risks. DISCHARGE MEDICATIONS: Included: 1. Pantoprazole 20 mg daily. 2. Acetaminophen 1000 mg daily as needed. 3. Ranitidine 150 mg daily. 4. Diltiazem 180 mg daily. 5. Albuterol 2 puffs q.4 hours p.r.n. 6. Ferrous sulfate to be continued at the patient's discretion. [id number]/[facility] #: [id number] MTDD
== END 2019-08-01 12:50 | disposition home or self-care (01) ==
LOC: MED 17:34
PROVIDERS: ADMIT Internal Medicine Hematology & Oncology; ATTEND Internal Medicine Hematology & Oncology
DX: D64.9 Anemia, unspecified (principal); I48.91 Unspecified atrial fibrillation; Z86.73 Personal history of transient ischemic attack (TIA), and cerebral infarction without residual deficits; K21.9 Gastro-esophageal reflux disease without esophagitis; I10 Essential (primary) hypertension; Z85.01 Personal history of malignant neoplasm of esophagus
CPT/HCPCS: 36415; 36430; 71260; 74177; 80053; 85014; 85018; 85025; 86922; 96374; 96375; 99156; 99220; A9270-GY; G0378; J2250; J3010; P9040; Q9967